=== PATIENT | male | born 1950 | race Two or more races ===

== ENCOUNTER 2018-05-30 09:38 | Emergency (ER) | payer OTHER ==
[~2018-05-30] VITALS: Ht 182.9 cm; Wt 108.9 kg
[2018-05-30] MEDS ORDERED: ONDANSETRON HCL 4 MG/2 ML VIAL IV ONE (10:30)
[2018-05-30] MEDS ORDERED: HYDROmorphone HCL 2 MG/ML VL IV ONE ×2 (10:30→12:30)
[2018-05-30 10:44] LABS: Basophils # (auto) 0 uL; Basophils % (auto) 0.2 % (0.0-2.0); Eosinophils # (auto) 0.1 uL; Eosinophils % (auto) 0.6 % (0.0-7.0); Hematocrit 44.3 % (41.0-53.0); Hemoglobin 15.1 g/dL (13.5-17.5); Lymphocytes # (auto) 2.2 uL; Lymphocytes % (auto) 11.7 % (10.0-50.0); Mean Corpuscular Hemoglobin 30.7 pg (28.0-32.0); Mean Corpuscular Hgb Conc. 34.1 g/dL (32.0-36.0); Mean Corpuscular Volume 90.1 fL (80.0-100.0); Monocytes % (auto) 5.1 % (0.0-12.0); Neutrophils # (auto) 15.4 uL; Neutrophils % (auto) 82.4 % (37.0-80.0); Platelet Count (auto) 256 10^3/uL (140-450); Red Blood Cells 4.92 10^6/uL (4.5-5.90); Red Cell Distribution Width 13.1 % (11.8-14.3); White Blood Cell 18.7 10^3/uL (4.4-10.8)
[2018-05-30 10:56] LABS: INR 0.97 (0.9-1.15); Partial Thromboplastin Time 23.7 sec (23.78-33.04); Prothrombin Time 10.4 sec (9.27-12.13)
[2018-05-30 11:04] LABS: Albumin 3.6 g/dL (3.4-5.0); Anion Gap 10 (5-15); Blood Urea Nitrogen 20 mg/dL (7-18); Calcium 8.4 mg/dL (8.5-10.1); Carbon Dioxide 22 mmol/L (21-32); Chloride 108 mmol/L (98-107); Glucose 138 mg/dL (74-106); Potassium 3.6 mmol/L (3.5-5.1); Sodium 140 mmol/L (136-145)
[2018-05-30 11:06] LABS: Alanine Aminotransferase 24 U/L (16-61); Aspartate Aminotransferase 13 U/L (15-37); GFR African American 112 mL/min; GFR Non-African American 92 mL/min
[2018-05-30 11:11] LABS: Alkaline Phosphatase 73 U/L (45-117); Bilirubin, Total 0.6 mg/dL (0.2-1.0); Total Protein 6.8 g/dL (6.4-8.2)
[2018-05-30 13:29] VITALS: BP 133/75
[2018-05-30 13:39] LABS: BUN/Creatinine Ratio 22.7
== END 2018-05-30 13:56 | disposition short-term general hospital (02) ==
LOC: ER 09:38
DX: S72.141A Displaced intertrochanteric fracture of right femur, initial encounter for closed fracture (principal); E11.9 Type 2 diabetes mellitus without complications; E78.5 Hyperlipidemia, unspecified; I10 Essential (primary) hypertension; V19.9XXA Pedal cyclist (driver) (passenger) injured in unspecified traffic accident, initial encounter; Y93.I9 Activity, other involving external motion; Y92.59 Other trade areas as the place of occurrence of the external cause; Y99.8 Other external cause status
CPT/HCPCS: 36415; 71045; 72192; 80053; 84484; 85025; 85610; 85730; 93005; 96374; 96375; 96376; 99285; J1170; J2405

== ENCOUNTER 2018-06-09 10:54 | Emergency (ER) | payer OTHER ==
[~2018-06-09] VITALS: Ht 182.9 cm; Wt 113.4 kg
[2018-06-09 11:26] LABS: Basophils # (auto) 0.1 uL; Eosinophils # (auto) 0 uL; Eosinophils % (auto) 0.1 % (0.0-7.0); Hemoglobin 12.6 g/dL (13.5-17.5)
[2018-06-09] MEDS ORDERED: DILTIAZEM HCL 25 MG/5 ML VIAL IV ONE ×2 (11:26→11:30)
[2018-06-09 11:27] LABS: Basophils % (auto) 0.6 % (0.0-2.0); Hematocrit 37.3 % (41.0-53.0); Lymphocytes # (auto) 1.7 uL; Lymphocytes % (auto) 11.3 % (10.0-50.0); Mean Corpuscular Hemoglobin 30.6 pg (28.0-32.0); Mean Corpuscular Hgb Conc. 33.7 g/dL (32.0-36.0); Mean Corpuscular Volume 90.8 fL (80.0-100.0); Monocytes # (auto) 0.7 uL; Monocytes % (auto) 4.4 % (0.0-12.0); Neutrophils % (auto) 83.6 % (37.0-80.0); Platelet Count (auto) 491 10^3/uL (140-450); Red Blood Cells 4.11 10^6/uL (4.5-5.90); Red Cell Distribution Width 13.9 % (11.8-14.3); White Blood Cell 15.5 10^3/uL (4.4-10.8)
[2018-06-09] MEDS ORDERED: SODIUM CHLORIDE 0.9% 1,000 ML IV ONE (11:44)
[2018-06-09 11:45] LABS: Albumin 3.3 g/dL (3.4-5.0); BUN/Creatinine Ratio 23.6; Calcium 8.6 mg/dL (8.5-10.1); Potassium 3.7 mmol/L (3.5-5.1)
[2018-06-09 11:49] LABS: Bilirubin, Total 1.1 mg/dL (0.2-1.0); Total Protein 7.6 g/dL (6.4-8.2)
[2018-06-09] MEDS ORDERED: MORPHINE SULFATE 4 MG/ML SYR/VIAL IV ONE ×2 (12:45→14:30)
[2018-06-09] MEDS ORDERED: PROMETHAZINE HCL 25 MG/ML 1ML IV ONE ×2 (12:45→14:30)
[2018-06-09] MEDS ORDERED: IOHEXOL 350 MG/ML 100ML IJ ONE (12:51)
[2018-06-09 13:22] LABS: Urine Bacteria NONE SEEN /hpf (None Seen); Urine Blood Negative /uL (Negative); Urine Specific Gravity 1.012 (1.001-1.035); Urine WBC <1 /hpf (0 - 3)
[2018-06-09 16:16] VITALS: BP 140/78
== END 2018-06-09 16:35 | disposition short-term general hospital (02) ==
LOC: ER 10:54
DX: R09.89 Other specified symptoms and signs involving the circulatory and respiratory systems (principal); I48.91 Unspecified atrial fibrillation; R79.89 Other specified abnormal findings of blood chemistry; R74.8 Abnormal levels of other serum enzymes; E11.65 Type 2 diabetes mellitus with hyperglycemia; E78.5 Hyperlipidemia, unspecified; I10 Essential (primary) hypertension; Z90.49 Acquired absence of other specified parts of digestive tract
CPT/HCPCS: 36415; 71046; 71275; 80053; 81001; 82962; 83735; 83880; 84443; 84484; 85025; 85379; 93005; 94761; 96361; 96374; 96375; 96376; 99285; J2270; J2550; J7030; Q9967

== ENCOUNTER 2019-09-28 19:48 | Inpatient (IN) | payer OTHER ==
[~2019-09-28] VITALS: Ht 182.9 cm; Wt 111.0 kg
[2019-09-28 20:46] LABS: Basophils # (auto) 0.1 10 ^3/uL (0-0.2); Basophils % (auto) 0.5 % (0.0-2.0); Eosinophils # (auto) 0 10 ^3/uL (0-0.8); Eosinophils % (auto) 0.5 % (0.0-7.0); Hematocrit 40.3 % (41.0-53.0); Hemoglobin 13.6 g/dL (13.5-17.5); Lymphocytes # (auto) 2.6 10 ^3/uL (0.4-5.4); Lymphocytes % (auto) 25.3 % (10.0-50.0); Mean Corpuscular Hemoglobin 28.6 pg (28.0-32.0); Mean Corpuscular Hgb Conc. 33.8 g/dL (32.0-36.0); Mean Corpuscular Volume 84.6 fL (80.0-100.0); Monocytes # (auto) 0.8 10 ^3/uL (0-1.3); Monocytes % (auto) 7.4 % (0.0-12.0); Neutrophils # (auto) 6.8 10 ^3/uL (1.6-8.6); Neutrophils % (auto) 66.3 % (37.0-80.0); Platelet Count (auto) 330 10^3/uL (140-450); Red Blood Cells 4.76 10^6/uL (4.5-5.90); White Blood Cell 10.3 10^3/uL (4.4-10.8)
[2019-09-28 21:03] LABS: Potassium 3.6 mmol/L (3.5-5.1)
[2019-09-28 21:12] LABS: Albumin 3.3 g/dL (3.4-5.0); BUN/Creatinine Ratio 25.3; Bilirubin, Total 0.9 mg/dL (0.2-1.0); Calcium 8.4 mg/dL (8.5-10.1); Total Protein 6.8 g/dL (6.4-8.2)
[2019-09-28] MEDS ORDERED: dilTIAZem 25 MG/5 ML VIAL IV ONE ×2 (21:45→23:00)
[2019-09-28] MEDS ORDERED: ALBUTEROL SULF 2.5 MG/0.5ML(0.5%) NEB SOLN NEB ONE (21:45)
[2019-09-28] MEDS ORDERED: IPRATROPIUM BROM 0.5 MG/2.5ML INH SOL NEB ONE (21:45)
[2019-09-28] MEDS ORDERED: DexAMETHasone INJECTION 10 MG in D5W 5% 50 ML IV ONE (21:45)
[2019-09-28] MEDS ORDERED: DexAMETHasone SOD PHOS 4 MG/1ML SDV INJ ONE (22:31)
[2019-09-28 22:35] LABS: INR 1.19 (0.9-1.15); Partial Thromboplastin Time 26.8 sec (23.64-32.05)
[2019-09-29] MEDS ORDERED: DOCUSATE SOD 100 MG CAP PO PRN (00:30)
[2019-09-29] MEDS ORDERED: ACETAMINOPHEN 325 MG TAB PO PRN (00:30)
[2019-09-29] MEDS ORDERED: ONDANSETRON HCL 4 MG/2 ML VIAL IV PRN (00:30)
[2019-09-29] MEDS ORDERED: DEXTROSE (50%) 50ML SYRG IV PRN (00:30)
[2019-09-29] MEDS ORDERED: HYDROcodone-ACET 5/325MG TAB PO PRN (00:30)
[2019-09-29 01:38] LABS: Urine Bacteria NONE SEEN /hpf (None Seen); Urine Blood Negative /uL (Negative); Urine Hyaline Cast FEW /lpf (0 - 2); Urine Specific Gravity 1.025 (1.001-1.035); Urine WBC 1 /hpf (0 - 3)
[2019-09-29] MEDS ORDERED: AMIODARONE HCL 150 MG in D5W 5% 100 ML IV ONE (02:00)
[2019-09-29] MEDS ORDERED: AMIODARONE HCL (50 MG/ ML) 3 ML VIAL IV ONE (02:00)
[2019-09-29] MEDS ORDERED: AMIODARONE HCL 900 MG in DEXTROSE 500 ML IV SCH ×2 (02:07→08:07)
[2019-09-29] MEDS ORDERED: AMIODARONE HCL 900 MG IV ONE (02:08)
--- NOTE | 2019-09-29 02:57 | NUR ---
Telemetry admit from ER Patient admitted to Telemetry unit after SBAR received. Patient oriented to primary RN, unit, room, bed, and unit policies regarding patient care and visiting hours. Patient now on continuous telemetry monitoring, tele box # 79 and telemetry reading on arrival to unit is Afib with HR 135. Patient on Amiodarone drip 1mg/min. Patient placed on bedside oxygen at 2 L NC, weighed by bed scale and encouraged to call if they need something. All questions and concerns addressed, patient verbalized understanding. Bed is in lowest position, Bed rails 2x, bed wheels locked. Call light and bedside table within reach.
[2019-09-29 03:27] VITALS: BP 166/115
--- NOTE | 2019-09-29 03:30 | NUR ---
Called hospitalist Patient has elevated blood pressure 153/73 HR 129. One time order for clonidine 0.1mg. Will continue to monitor Q1 and PRN.
--- NOTE | 2019-09-29 03:32 | NUR ---
RT Paged Patient reports having SOB. Patient has heavy breathing and slight hyperventilation. RT administered PRN breathing treatments for SOB. Will continue to monitor patient Q1 and PRN. Call light and bedside table are within reach.
[2019-09-29 03:37] VITALS: BP 153/107
[2019-09-29] MEDS: ALBUTEROL SULF 2.5 MG/0.5ML(0.5%) NEB SOLN NEB PRN ×2 (03:40→07:12)
[2019-09-29] MEDS: IPRATROPIUM BROM 0.5 MG/2.5ML INH SOL NEB PRN ×2 (03:40→07:12)
[2019-09-29] MEDS ORDERED: cloNIDine HCL 0.1 MG TAB PO ONE (04:00)
[2019-09-29] MEDS ORDERED: FLUT250M2 INH (04:25)
[2019-09-29] MEDS ORDERED: APIX5TAB PO (04:25)
[2019-09-29] MEDS ORDERED: ATO40T PO (04:25)
[2019-09-29] MEDS ORDERED: LISI40TA PO (04:25)
[2019-09-29] MEDS ORDERED: FURO1TAB31 PO (04:25)
[2019-09-29] MEDS ORDERED: ALBU2TAB4 PO (04:25)
[2019-09-29] MEDS ORDERED: TERA1CAP33 PO (04:25)
[2019-09-29] MEDS ORDERED: METF-370 PO (04:25)
[2019-09-29] MEDS ORDERED: SPIR25TA8 PO (04:25)
[2019-09-29] MEDS ORDERED: MONT5CHW17 PO (04:25)
[2019-09-29] MEDS ORDERED: ALBUAER3 IN (04:25)
[2019-09-29] MEDS ORDERED: CARV3.1240 PO (04:25)
[2019-09-29] MEDS: ACCU-CHEK COMFORT CURVE STRIP VI SCH ×4 (04:26→17:28)
[2019-09-29] MEDS: InsuLIN REG 1unit/0.01ml Soln (100units/ml) SC SCH ×4 (04:31→17:34)
[2019-09-29 05:00] VITALS: BP 140/100
--- NOTE | 2019-09-29 05:31 | NUR ---
RT PAGED Patient complains of SOB. Patient SPO2 97%, breathing moderately labored. Patient is on 3L NC. Instructed to take deep breaths. RT paged to assess patient. Will continue to monitor patient Q1 and PRN.
[2019-09-29 06:01] LABS: Basophils # (auto) 0 10 ^3/uL (0-0.2); Basophils % (auto) 0.5 % (0.0-2.0); Eosinophils # (auto) 0 10 ^3/uL (0-0.8); Hematocrit 40.7 % (41.0-53.0); Hemoglobin 13.7 g/dL (13.5-17.5); Lymphocytes # (auto) 0.9 10 ^3/uL (0.4-5.4); Lymphocytes % (auto) 12.5 % (10.0-50.0); Mean Corpuscular Hemoglobin 28.1 pg (28.0-32.0); Mean Corpuscular Hgb Conc. 33.6 g/dL (32.0-36.0); Mean Corpuscular Volume 83.8 fL (80.0-100.0); Monocytes # (auto) 0.2 10 ^3/uL (0-1.3); Monocytes % (auto) 3.1 % (0.0-12.0); Neutrophils # (auto) 6.3 10 ^3/uL (1.6-8.6); Neutrophils % (auto) 83.9 % (37.0-80.0); Platelet Count (auto) 320 10^3/uL (140-450); Red Blood Cells 4.86 10^6/uL (4.5-5.90); Red Cell Distribution Width 15.4 % (11.8-14.3); White Blood Cell 7.6 10^3/uL (4.4-10.8)
[2019-09-29 06:30] LABS: BUN/Creatinine Ratio 25.3; Calcium 8.5 mg/dL (8.5-10.1); Potassium 3.8 mmol/L (3.5-5.1)
--- NOTE | 2019-09-29 06:34 | NUR ---
RT PAGED Patient complains of SOB. RT paged to assess patient. Patient on 3L NC. Will continue to monitor Q1 and PRN.
--- NOTE | 2019-09-29 06:39 | NUR ---
Called Hospitalist Patient complains of right side arm pain that radiates mid chest. EKG done shows Afib with short RVR. VS BP 145/84 HR 129 SPO2 96% T 97.6%. No new orders received. Instructed to give Morphine 2mg as ordered. Will monitor patient Q1 and PRN.
[2019-09-29] MEDS: MORPHINE SULFATE 4 MG/ML SYR/VIAL IV PRN ×2 (06:58→12:42)
--- NOTE | 2019-09-29 07:54 | NUR ---
OPENING SHIFT NOTE Assumed care of patient. PT is awake and A&O x4. POC discussed with PT. Family member at bedside. Bed is in lowest, locked position, call light within reach, bed alarm on for safety. Will continue to monitor Q1h and PRN.
[2019-09-29] MEDS ORDERED: ADENOSINE 93 MG in GIVE UN-DILUTED 0 ML IV STA (08:59)
[2019-09-29 09:10] VITALS: BP 160/91
[2019-09-29] MEDS ORDERED: DexAMETHasone INJECTION 10 MG in D5W 5% 50 ML IV SCH (10:00)
[2019-09-29] MEDS ORDERED: FUROSEMIDE 40 MG TAB PO SCH (10:00)
[2019-09-29] MEDS ORDERED: APIXABAN 5 MG TAB PO SCH (10:00)
[2019-09-29] MEDS ORDERED: LISINOPRIL 20 MG TAB PO SCH (10:00)
[2019-09-29] MEDS ORDERED: CARVEDILOL 3.125 MG TAB PO SCH (10:00)
[2019-09-29] MEDS ORDERED: methylPREDNISolone SOD SUCC 125 MG/2 ML VL IV SCH (10:00)
[2019-09-29] MEDS ORDERED: SPIRONOLACTONE 25 MG TAB PO SCH (10:00)
[2019-09-29] MEDS ORDERED: TERAZOSIN HCL 1 MG CAP PO SCH (10:00)
[2019-09-29] MEDS: AMIODARONE HCL 150 MG in D5W 5% 100 ML IV ONE ×2 (10:22→10:30)
[2019-09-29] MEDS ORDERED: cloNIDine HCL 0.1 MG TAB PO PRN (11:30)
--- NOTE | 2019-09-29 12:35 | NUR ---
1230 09/29/19 Faxed transfer order, today's MD progress notes and Notice Regarding Post Stabilization to [place] [facility] [phone]-document scanned into [employer].
--- NOTE | 2019-09-29 14:34 | NUR ---
1430 09/29/19 I spoke with AUBURN Jet Operator Shaun ([phone])-he is working on the transfer for this patient-he will call nurse's station when a bed becomes available. Provided him with additional clinical information as requested. Faxed today's MD discharge summary as well as ECHO from 07/2019.
[2019-09-29 15:17] VITALS: BP 118/69
--- NOTE | 2019-09-29 16:31 | NUR ---
SPOKE WITH ROGERS DATABASES SOFTWARE CONSULTANT. STATED PT WOULD BE TRANSFERRING TO [facility]. EVY ROOM [address] HARDING. PICKUP TIME SET FOR 1999. WILL PROCEED WITH TRANSFER AND ENDORSE TO NIGHT NURSE.
[2019-09-29 17:00] VITALS: BP 142/98
[2019-09-29] MEDS ORDERED: ATORVASTATIN 20 MG TAB PO SCH (18:00)
--- NOTE | 2019-09-29 19:30 | NUR ---
Opening Shift Note Received report from Will RN. Assumed care of patient, awake and alert. No S/S of distress/SOB or pain. Instructed on POC and to calf for assist PRN, will continue to monitor for changes Q1hr and PRN. Patient is for transfer to [facility], awaiting transport.
--- NOTE | 2019-09-29 19:39 | NUR ---
CALLED IN REPORT TO JOHN OAKES AT [facility]. PT IS AWAITING TRANSPORT.
--- NOTE | 2019-09-29 21:00 | NUR ---
Pt being trans to another hosp Order obtained for transfer of PERLA MCGEE to [facility]. Report called/given by jaja BARNHART. Report given to EMS transport team. Medication reconciliation form completed and copy given to patient. Transported via gurney along with copied chart and imaging films/disk and all personal belongings. No distress noted on time of departure. Family notified of destination and room number by jaja BARNHART.
== END 2019-09-29 21:00 | disposition short-term general hospital (02) | DRG 280 ==
LOC: ER 19:50 → TELE 19:51 → TELE-WESTW 09-29 02:58
PROVIDERS: ADMIT Hospitalist; ATTEND Internal Medicine
DX: I21.4 Non-ST elevation (NSTEMI) myocardial infarction (principal); J96.21 Acute and chronic respiratory failure with hypoxia; I50.33 Acute on chronic diastolic (congestive) heart failure; N17.0 Acute kidney failure with tubular necrosis; J44.1 Chronic obstructive pulmonary disease with (acute) exacerbation; J45.901 Unspecified asthma with (acute) exacerbation; I13.0 Hypertensive heart and chronic kidney disease with heart failure and stage 1 through stage 4 chronic kidney disease, or unspecified chronic kidney disease; I48.92 Unspecified atrial flutter; D68.69 Other thrombophilia; I48.0 Paroxysmal atrial fibrillation; E66.9 Obesity, unspecified; N40.0 Benign prostatic hyperplasia without lower urinary tract symptoms; I25.10 Atherosclerotic heart disease of native coronary artery without angina pectoris; Z95.5 Presence of coronary angioplasty implant and graft; E11.22 Type 2 diabetes mellitus with diabetic chronic kidney disease; N18.9 Chronic kidney disease, unspecified; Z91.14 Patient's other noncompliance with medication regimen; Z68.33 Body mass index [BMI] 33.0-33.9, adult; E78.5 Hyperlipidemia, unspecified; I25.2 Old myocardial infarction; Z79.01 Long term (current) use of anticoagulants; Z80.0 Family history of malignant neoplasm of digestive organs; Z82.49 Family history of ischemic heart disease and other diseases of the circulatory system; Z83.3 Family history of diabetes mellitus; Z86.711 Personal history of pulmonary embolism; Z86.718 Personal history of other venous thrombosis and embolism; Z90.49 Acquired absence of other specified parts of digestive tract
CPT/HCPCS: 36415; 36600; 71045; 80048; 80053; 81001; 82805; 82962; 83036; 83735; 83880; 84443; 84484; 85025; 85379; 85610; 85730; 93005; 94640; 96365; 96367; 96372; 96375; 97163; 99291; G0378; J0153; J1100; J1815; J7060

== ENCOUNTER 2019-10-27 20:24 | Inpatient (IN) | payer OTHER ==
[~2019-10-27] VITALS: Ht 182.9 cm; Wt 109.0 kg
[~2019-10-27 20:24] MED LIST: ALBU2TAB4 PO; ALBUAER3 IN; APIX5TAB PO; ATO40T PO; CARV3.1240 PO; FLUT250M2 INH; FURO1TAB31 PO; LISI40TA PO; METF-370 PO; MONT5CHW17 PO; SPIR25TA8 PO; TERA1CAP33 PO
[2019-10-27] MEDS ORDERED: FUROSEMIDE 20 MG/2 ML VIAL IV ONE (21:00)
[2019-10-27] MEDS ORDERED: DIGOXIN 0.25 MG TAB PO ONE (21:00)
[2019-10-27 21:13] LABS: Urine WBC None Seen /hpf (0 - 3)
[2019-10-27] MEDS ORDERED: DIGOXIN (250MCG/ML) 2 ML AMPULE IV ONE (21:15)
[2019-10-27 21:30] LABS: Basophils # (auto) 0.1 10 ^3/uL (0-0.2); Basophils % (auto) 0.6 % (0.0-2.0); Eosinophils # (auto) 0.2 10 ^3/uL (0-0.8); Lymphocytes # (auto) 2.3 10 ^3/uL (0.4-5.4); Monocytes # (auto) 0.9 10 ^3/uL (0-1.3); Red Cell Distribution Width 17.1 % (11.8-14.3)
[2019-10-27 21:34] LABS: Eosinophils % (auto) 1.7 % (0.0-7.0); Hematocrit 41.3 % (41.0-53.0); Lymphocytes % (auto) 20.3 % (10.0-50.0); Mean Corpuscular Hemoglobin 25.9 pg (28.0-32.0); Mean Corpuscular Hgb Conc. 31.5 g/dL (32.0-36.0); Mean Corpuscular Volume 82.3 fL (80.0-100.0); Monocytes % (auto) 7.8 % (0.0-12.0); Neutrophils # (auto) 7.9 10 ^3/uL (1.6-8.6); Neutrophils % (auto) 69.6 % (37.0-80.0); Platelet Count (auto) 432 10^3/uL (140-450); Red Blood Cells 5.01 10^6/uL (4.5-5.90); White Blood Cell 11.3 10^3/uL (4.4-10.8)
[2019-10-27 21:44] LABS: Urine Bacteria NONE SEEN /hpf (None Seen); Urine Blood Negative /uL (Negative); Urine Specific Gravity 1.015 (1.001-1.035)
[2019-10-27 21:48] LABS: INR 1.13 (0.9-1.15); Partial Thromboplastin Time 24.8 sec (23.64-32.05)
[2019-10-27 21:50] LABS: Albumin 3.3 g/dL (3.4-5.0); BUN/Creatinine Ratio 24.8; Calcium 8.5 mg/dL (8.5-10.1); Potassium 3.9 mmol/L (3.5-5.1)
[2019-10-27 21:55] LABS: Bilirubin, Total 0.7 mg/dL (0.2-1.0); Total Protein 6.8 g/dL (6.4-8.2)
[2019-10-27] MEDS ORDERED: cloNIDine HCL 0.1 MG TAB PO ONE (22:00)
[2019-10-27] MEDS ORDERED: cefTRIAXone 1GM/50ML D5W 50 ML IV ONE (23:00)
[2019-10-28] VITALS (29 sets, daily range): BP systolic 85–118; BP diastolic 50–75
[2019-10-28] MEDS ORDERED: AZITHROMYCIN 500MG/ 250ML 250 ML IV ONE (01:15)
[2019-10-28] MEDS ORDERED: methylPREDNISolone SOD SUCC 125 MG/2 ML VL IV ONE (01:15)
[2019-10-28] MEDS ORDERED: cloNIDine HCL 0.1 MG TAB PO ONE (01:15)
[2019-10-28] MEDS ORDERED: FUROSEMIDE 20 MG/2 ML VIAL IV ONE (01:45)
[2019-10-28] MEDS: MIDAZOLAM DRIP 50 mg/50mL 50 ML IV SCH (02:45)
[2019-10-28] MEDS ORDERED: ETOMIDATE (2MG/ML) 20ML VIAL IV ONE ×2 (02:45→03:30)
[2019-10-28] MEDS ORDERED: SUCCINYLCHOLINE CHLORIDE 20 MG/ML 10ML VIAL IV ONE ×2 (02:45→03:30)
[2019-10-28] MEDS: PROPOFOL 100 ML IV SCH (03:29)
[2019-10-28] MEDS ORDERED: ALBUTEROL SULF 2.5 MG/0.5ML(0.5%) NEB SOLN NEB PRN (03:30)
[2019-10-28] MEDS ORDERED: DEXTROSE (50%) 50ML SYRG IV PRN (03:30)
[2019-10-28] MEDS ORDERED: ONDANSETRON HCL 4 MG/2 ML VIAL IV PRN (03:30)
[2019-10-28] MEDS ORDERED: NITROGLYCERIN 0.4 MG SL TAB SL PRN (03:30)
[2019-10-28] MEDS ORDERED: MORPHINE SULF INJ 2 MG/ML SYRINGE 1ML IV PRN (03:30)
[2019-10-28] MEDS ORDERED: cefTRIAXone 1GM/50ML D5W 50 ML IV ONE (03:30)
[2019-10-28] MEDS ORDERED: IPRATROPIUM BROM 0.5 MG/2.5ML INH SOL NEB PRN (03:30)
[2019-10-28] MEDS: ACCU-CHEK COMFORT CURVE STRIP VI SCH ×3 (06:18→19:00)
[2019-10-28] MEDS: InsuLIN REG 1unit/0.01ml Soln (100units/ml) SC SCH ×3 (06:19→18:58)
[2019-10-28] MEDS: ASCORBIC ACID 500 MG TAB PO SCH (09:01)
[2019-10-28] MEDS: APIXABAN 5 MG TAB PO SCH ×2 (09:01→22:00)
[2019-10-28] MEDS: ZINC SULFATE 220mg CAP or TAB PO SCH (09:02)
[2019-10-28] MEDS: PANTOPRAZOLE 40 MG/10 ML VIAL INJ IV SCH (09:03)
[2019-10-28] MEDS ORDERED: ASPirin 81 mg TAB PO SCH (10:00)
[2019-10-28] MEDS ORDERED: FUROSEMIDE 40 MG/4 ML VIAL IV ONE (11:15)
[2019-10-28] MEDS ORDERED: CARVEDILOL 3.125 MG TAB PO ONE (11:15)
--- NOTE | 2019-10-28 18:25 | NUR ---
RT Transport Note: Patient transported to {104} with RN {FRANCES}. Patient transported to and from procedure on ventilator with previous ordered settings. Patient on color television console monitor with alarms set and audible, ambu-bag/mask connected to 02 tank. Transport completed without incident. Pt set up back on regular vent, Dr Lawson in unit with verbal order to increase peep to +10. Pt is resting with no distress will continue to monitor.
--- NOTE | 2019-10-28 18:30 | NUR ---
Admit to ICU from ER on vent ARELY,PERLAadmitted to ICU via gurnusrat on monitoring tech, intubated and being bagged by Respiratory Therapist. Patient transfered to bed, connected to mechanical ventilator by therapist, JOSE at bedside. Patient connected to ICU monitoring, weighed by bedscale, oriented to Rafal booker RN, unit, ventilator and sedation.
[2019-10-28] MEDS: FUROSEMIDE 40 MG/4 ML VIAL IV SCH (18:45)
--- NOTE | 2019-10-28 19:30 | NUR ---
Opening Shift Note Received pt on mechanical ventilator, sedated on propofol and versed. Pt withdraws to pain. VSS. Full assessment done see interventions. [address] See IV spreadsheet for details. Jaquez catheter in place, draining yellow urine with sediment, secured below bladder, free of kinks. Airborne precautions in place, as pt being ruled out for COVID-19. Pt in full view of RN. Bed locked in lowest position. All alarms on and audible.
--- NOTE | 2019-10-28 19:30 | NUR ---
REPORT GIVEN TO NITHIN BARNHART, ENDORSED TO COMPLETE ADMISSION.
--- NOTE | 2019-10-28 20:30 | NUR ---
Called pt's brother, Cholo, to finish admission questions. Cholo updated on pt status, and all questions and concerns addressed at this time.
[2019-10-28] MEDS: AZITHROMYCIN 500MG/ 250ML 250 ML IV SCH (21:00)
[2019-10-28] MEDS: cefTRIAXone 1GM/50ML D5W 50 ML IV SCH (21:00)
[2019-10-28] MEDS: ATORVASTATIN 20 MG TAB PO SCH (22:00)
[2019-10-28] MEDS: CARVEDILOL 3.125 MG TAB PO SCH (22:00)
[2019-10-29] VITALS (94 sets, daily range): BP systolic 92–137; BP diastolic 48–88
--- NOTE | 2019-10-29 02:00 | NUR ---
18 G IV ACCESS OBTAINED TO LEFT UPPER FA. PATENT AND SECURED PROPERLY. PT TOLERATED WELL.
[2019-10-29] MEDS: MIDAZOLAM DRIP 50 mg/50mL 50 ML IV SCH (02:45)
--- NOTE | 2019-10-29 03:00 | NUR ---
CARES PT CLEANSED AND PARTIAL LINEN CHANGE AT THIS TIME. SACRUM REDDENED, AND BLANCHABLE. FREQUENT REPOSITIONING INTERVENTION BEING CARRIED OUT. WILL CONTINUE TO MONITOR CLOSELY.
[2019-10-29] MEDS: PROPOFOL 100 ML IV SCH (03:29)
[2019-10-29 04:24] LABS: Basophils # (auto) 0 10 ^3/uL (0-0.2); Basophils % (auto) 0.1 % (0.0-2.0); Eosinophils # (auto) 0 10 ^3/uL (0-0.8); Hematocrit 36.7 % (41.0-53.0); Hemoglobin 11.8 g/dL (13.5-17.5); Lymphocytes # (auto) 1.3 10 ^3/uL (0.4-5.4); Lymphocytes % (auto) 12.2 % (10.0-50.0); Mean Corpuscular Hemoglobin 26.6 pg (28.0-32.0); Mean Corpuscular Hgb Conc. 32.3 g/dL (32.0-36.0); Mean Corpuscular Volume 82.2 fL (80.0-100.0); Monocytes # (auto) 0.9 10 ^3/uL (0-1.3); Monocytes % (auto) 8.9 % (0.0-12.0); Neutrophils # (auto) 8.4 10 ^3/uL (1.6-8.6); Neutrophils % (auto) 78.8 % (37.0-80.0); Platelet Count (auto) 330 10^3/uL (140-450); Red Blood Cells 4.46 10^6/uL (4.5-5.90); Red Cell Distribution Width 16.6 % (11.8-14.3); White Blood Cell 10.7 10^3/uL (4.4-10.8)
[2019-10-29 04:45] LABS: Albumin 2.7 g/dL (3.4-5.0); Calcium 8.1 mg/dL (8.5-10.1)
[2019-10-29 04:49] LABS: Bilirubin, Total 0.6 mg/dL (0.2-1.0); Total Protein 5.7 g/dL (6.4-8.2)
[2019-10-29] MEDS: ACCU-CHEK COMFORT CURVE STRIP VI SCH ×4 (06:19→18:00)
[2019-10-29] MEDS: InsuLIN REG 1unit/0.01ml Soln (100units/ml) SC SCH ×4 (06:19→18:00)
[2019-10-29] MEDS: FUROSEMIDE 40 MG/4 ML VIAL IV SCH ×2 (06:20→19:04)
[2019-10-29] MEDS: ASPirin 81 mg TAB PO SCH (07:59)
[2019-10-29] MEDS: APIXABAN 5 MG TAB PO SCH ×2 (07:59→21:54)
[2019-10-29] MEDS: PANTOPRAZOLE 40 MG/10 ML VIAL INJ IV SCH (07:59)
[2019-10-29] MEDS: ASCORBIC ACID 500 MG TAB PO SCH (07:59)
[2019-10-29] MEDS: ZINC SULFATE 220mg CAP or TAB PO SCH ×2 (08:00→13:57)
--- NOTE | 2019-10-29 09:27 | NUR ---
ZINC TABLET UNAVAILABLE NO ZINC PO AVAILABLE PER PHARMACY AT THIS TIME. MEDICATION HELD. MD TO BE NOTIFIED.
[2019-10-29] MEDS: CARVEDILOL 3.125 MG TAB PO SCH ×2 (10:00→21:54)
--- NOTE | 2019-10-29 10:30 | NUR ---
md at bedside Dr. Hernandes updated on patients status. Per md, no picc line at this time, roofer assistant to insert central line. Pourer Buggy Ladle aware. See new orders.
--- NOTE | 2019-10-29 10:47 | NUR ---
Family updated on pt status Family of PERLA MCGEE updated on patient's status and condition. All questions and concerns addressed. Cholo, brother verbalized understanding.
--- NOTE | 2019-10-29 12:26 | NUR ---
Nutrition Assessment Notes Please refer to link for full assessment notes. Est energy needs: 0829-8839 kcals (14-18 kcal/kgBW) Est protein needs: 90-99 gms/day (1.0-1.1 gm/kgAdjBW) Will continue to monitor and reassess prn. Addendum: 10/29/19 at [address] Amended: Links added.
--- NOTE | 2019-10-29 14:00 | NUR ---
PHARMACY ABLE TO SEND ZINC CAPSULE. MEDICATION ADMINISTERED.
--- NOTE | 2019-10-29 14:20 | NUR ---
Cooling Measures applied. Patient currently has temp of 99.8 , cooling measures in place.
--- NOTE | 2019-10-29 16:56 | NUR ---
WOUND CARE NOTE: Wound care in to see patient per wound care request regarding low Luis score of 12 and intubation status putting patient to high risk for skin breakdown. Patient is 68 years old male with admitting diagnosis of Acute Hypoxic Respiratory Failure. Patient is resting in ICU bed in Rm. 104. Patient is intubated and mechanically ventilated. Unable to do full skin assessment at this time due to patient is on airborne precautions, R/O CoVid19, limiting exposure by clustering care. Per patient's nurse report,patient has no wound other than Lt antunez dry intact scab and blanchable mild redness to sacrum. Patient is receiving BID/PRN cleaning and application of Barrier cream to sacral buttocks as preventative. RECOMMENDATION: Nursing to continue with BID/PRN cleaning and application of Barrier cream to sacral buttocks as preventative per MD order, Dietary consult for low Luis score, frequent turning and repositioning schedule as condition permits, redistribute pressure points with pillows,elevate heels on pillow, continue monitoring by wound care while patient is mechanically ventilated.
[2019-10-29] MEDS ORDERED: Glucerna 1.2 Cal 1Liter BOTTLE GT SCH (17:00)
--- NOTE | 2019-10-29 17:22 | NUR ---
fashion designer Dr. Lawson updated on patients status. No new orders at this time. Per md, versed and propofol to remain in peripheral iv's at this time. HOLD on central line. All iv's remain asymptomatic. Will continue to monitor sites closely.
--- NOTE | 2019-10-29 17:45 | NUR ---
IV RIGHT HAND IV INFUSING VERSED. SLIGHT AMOUNT OF PINK AREA NOTED. IV FLUSHED AND PATENT. VERSED CHANGED TO RIGHT FOREARM. WILL CONTINUE TO MONITOR SITES.
--- NOTE | 2019-10-29 19:30 | NUR ---
Opening Shift Note Received pt on mechanical ventilator, sedated on propofol and versed. Pt withdraws to pain. VSS. Full assessment done see interventions. [address] See IV spreadsheet for details. All IV sites asymptomatic. Will monitor IV sites closely. Jaquez catheter in place, draining yellow urine with sediment, secured below bladder, free of kinks. Airborne precautions in place, as pt being ruled out for COVID-19. Pt in full view of RN. Bed locked in lowest position. All alarms on and audible.
[2019-10-29] MEDS: cefTRIAXone 1GM/50ML D5W 50 ML IV SCH (21:52)
[2019-10-29] MEDS: ATORVASTATIN 20 MG TAB PO SCH (21:52)
[2019-10-29] MEDS: AZITHROMYCIN 500MG/ 250ML 250 ML IV SCH (21:52)
--- NOTE | 2019-10-29 23:30 | NUR ---
TUBE FEEDING STARTED AT 10 CC/S Positive placement of NGT verified.
[2019-10-30] VITALS (98 sets, daily range): BP systolic 92–152; BP diastolic 57–99
[2019-10-30] MEDS: InsuLIN REG 1unit/0.01ml Soln (100units/ml) SC SCH ×4 (00:14→18:00)
[2019-10-30] MEDS: ACCU-CHEK COMFORT CURVE STRIP VI SCH ×4 (00:25→18:00)
--- NOTE | 2019-10-30 02:00 | NUR ---
TF No residuals noted will continue and increase to reach goal rate
[2019-10-30] MEDS: MIDAZOLAM DRIP 50 mg/50mL 50 ML IV SCH ×2 (03:01→08:01)
--- NOTE | 2019-10-30 04:51 | NUR ---
CARES PT CLEANSED AND PARTIAL LINEN CHANGE PERFORMED. OPTIFOAM PLACED TO SACRUM FOR PREVENTATIVE.
[2019-10-30 05:34] LABS: Basophils # (auto) 0 10 ^3/uL (0-0.2); Basophils % (auto) 0.5 % (0.0-2.0); Eosinophils # (auto) 0 10 ^3/uL (0-0.8); Eosinophils % (auto) 0.2 % (0.0-7.0); Hematocrit 37.6 % (41.0-53.0); Hemoglobin 11.9 g/dL (13.5-17.5); Lymphocytes # (auto) 2.5 10 ^3/uL (0.4-5.4); Lymphocytes % (auto) 24.6 % (10.0-50.0); Mean Corpuscular Hemoglobin 26.2 pg (28.0-32.0); Mean Corpuscular Hgb Conc. 31.8 g/dL (32.0-36.0); Mean Corpuscular Volume 82.6 fL (80.0-100.0); Monocytes # (auto) 1.2 10 ^3/uL (0-1.3); Monocytes % (auto) 11.5 % (0.0-12.0); Neutrophils # (auto) 6.4 10 ^3/uL (1.6-8.6); Neutrophils % (auto) 63.2 % (37.0-80.0); Platelet Count (auto) 317 10^3/uL (140-450); Red Blood Cells 4.55 10^6/uL (4.5-5.90); Red Cell Distribution Width 17.3 % (11.8-14.3); White Blood Cell 10.1 10^3/uL (4.4-10.8)
[2019-10-30] MEDS: FUROSEMIDE 40 MG/4 ML VIAL IV SCH ×2 (06:00→18:00)
[2019-10-30 06:02] LABS: Potassium 3.8 mmol/L (3.5-5.1)
[2019-10-30 06:11] LABS: Albumin 2.6 g/dL (3.4-5.0); BUN/Creatinine Ratio 26.3; Bilirubin, Total 0.6 mg/dL (0.2-1.0); Calcium 8.4 mg/dL (8.5-10.1); Total Protein 5.9 g/dL (6.4-8.2)
--- NOTE | 2019-10-30 06:50 | NUR ---
PATIENT NEGATIVE FOR COVID-19. AIRBORNE PRECAUTIONS USHA'Shabbir.
--- NOTE | 2019-10-30 07:16 | NUR ---
REPORT RECEIVED FROM TOLL BRIDGE OPERATOR NURSE. PATIENT RESTING IN BED AT THIS TIME. RESPIRATIONS EVEN AND UNLABORED, INTUBATED AND SEDATED. NO SIGNS OF ACUTE DISTRESS NOTED. BED IN LOW POSITION. WILL CONTINUE TO MONITOR.
--- NOTE | 2019-10-30 07:16 | NUR ---
REPORT GIVEN TO DAY SHIFT RN TO ASSUME CARE
[2019-10-30] MEDS: PROPOFOL 100 ML IV SCH ×2 (08:02→16:09)
[2019-10-30] MEDS: APIXABAN 5 MG TAB PO SCH ×2 (09:49→21:56)
[2019-10-30] MEDS: ASCORBIC ACID 500 MG TAB PO SCH (09:49)
[2019-10-30] MEDS: CARVEDILOL 3.125 MG TAB PO SCH (09:50)
[2019-10-30] MEDS: PANTOPRAZOLE 40 MG/10 ML VIAL INJ IV SCH (09:50)
[2019-10-30] MEDS: ASPirin 81 mg TAB PO SCH (09:50)
[2019-10-30] MEDS: ZINC SULFATE 220mg CAP or TAB PO SCH (09:51)
--- NOTE | 2019-10-30 11:00 | NUR ---
DR URIBE AT BEDSIDE TO ASSESS PATIENT AND DISCUSS PLAN OF CARE. NO NEW ORDERS AT THIS TIME.
--- NOTE | 2019-10-30 13:12 | NUR ---
DR BETH AT BEDSIDE TO ASSESS PATIENT AND DISCUSS PLAN OF CARE. PER MD PATIENT NEEDS RIGHT SIDED THORACENTESIS TOMORROW. PER MD HOLD ALL BLOOD THINNERS TODAY AND TOMORROW.
[2019-10-30] MEDS: hydrALAZINE HCL 20 MG/ML VL IV PRN (13:59)
--- NOTE | 2019-10-30 14:03 | NUR ---
assessment Patient is a 68 year old male who is on a vent. Per patients brother Cholo prior to admission patient lived home alone and was independent. Patient has no need for DME. Patient cared for his own ADL's. Patients PCP is Dr Naylor at the [facility]. Per Cholo if [place] ask for patient to be transferred in network he agrees to transfer. Paer Cholo patient was having shortness of breath and Cholo call 911. I informed Cholo patients post discharge needs to be determined after extubation and prior to discharge. Cholo verbalized understanding. Addendum: 10/30/19 at 1407 by Araceli RUBI Amended: Links added.
--- NOTE | 2019-10-30 14:19 | NUR ---
OBTAINED CONSENT SPOKE TO RENNY MCGEE PATIENTS BROTHER AND OBTAINED CONSENT FOR RIGHT THORACENTESIS. CONSENT DOUBLE NURSE CONSENTED WITH EVITA BARNHART.
--- NOTE | 2019-10-30 16:10 | NUR ---
HOWARD CRABTREE LAP REGULATOR AT BEDSIDE TO ASSESS PATIENT AND DISCUSS PLAN OF CARE. ALL ORDERS NOTED IN CHART.
--- NOTE | 2019-10-30 16:26 | NUR ---
1620 10/30/19 I called [facility] [phone] and spoke with operational intelligence analyst Celina bertrand the order to transfer this patient to [facility] they are still not accepting any EVY or ICU patients for transfer at any of their facilities because they are over saturated. Dr. Hernandes made aware.
[2019-10-30] MEDS ORDERED: CARVEDILOL 12.5 MG TAB PO SCH (18:00)
--- NOTE | 2019-10-30 19:30 | NUR ---
CLOSING NOTE SHIFT REPORT GIVEN AND CARE ENDORSED TO NITHIN BARNHART FROM KAHLIL BARNHART
--- NOTE | 2019-10-30 19:30 | NUR ---
Opening Shift Note Received pt on mechanical ventilator, sedated on propofol. Pt withdraws to pain. VSS. Full assessment done see interventions. [address] See IV spreadsheet for details. All IV sites asymptomatic. Will monitor IV sites closely. Jaquez catheter in place, draining yellow urine with sediment, secured below bladder, free of kinks. Pt in full view of RN. Bed locked in lowest position. All alarms on and audible.
[2019-10-30] MEDS: cefTRIAXone 1GM/50ML D5W 50 ML IV SCH (21:00)
[2019-10-30] MEDS: ATORVASTATIN 20 MG TAB PO SCH (22:12)
[2019-10-31] VITALS (89 sets, daily range): BP systolic 94–165; BP diastolic 51–107
--- NOTE | 2019-10-31 | NUR ---
Residuals Pt had 15cc's residual. Will continue TF at 30cc's/hr.
--- NOTE | 2019-10-31 02:00 | NUR ---
Pt having low grade fevers of 99.9-100.0 cooling measures applied.
[2019-10-31 03:53] LABS: Eosinophils # (auto) 0.1 10 ^3/uL (0-0.8); Eosinophils % (auto) 0.9 % (0.0-7.0); Hematocrit 37.9 % (41.0-53.0); Hemoglobin 12.3 g/dL (13.5-17.5); Lymphocytes # (auto) 1.8 10 ^3/uL (0.4-5.4); Nucleated Red Blood Cells % 0.1 %
[2019-10-31 03:56] LABS: Basophils # (auto) 0 10 ^3/uL (0-0.2); Basophils % (auto) 0.6 % (0.0-2.0); Lymphocytes % (auto) 21.9 % (10.0-50.0); Mean Corpuscular Hemoglobin 26.4 pg (28.0-32.0); Mean Corpuscular Hgb Conc. 32.3 g/dL (32.0-36.0); Mean Corpuscular Volume 81.6 fL (80.0-100.0); Monocytes % (auto) 11.6 % (0.0-12.0); Neutrophils # (auto) 5.3 10 ^3/uL (1.6-8.6); Platelet Count (auto) 312 10^3/uL (140-450); Red Blood Cells 4.65 10^6/uL (4.5-5.90); Red Cell Distribution Width 16.9 % (11.8-14.3); White Blood Cell 8.2 10^3/uL (4.4-10.8)
--- NOTE | 2019-10-31 04:00 | NUR ---
CARES PT given full bed bath and linen change. Pt tolerated well.
[2019-10-31 04:12] LABS: BUN/Creatinine Ratio 25.6; Calcium 8.4 mg/dL (8.5-10.1); Potassium 3.6 mmol/L (3.5-5.1)
[2019-10-31] MEDS: PROPOFOL 100 ML IV SCH ×3 (04:20→13:49)
[2019-10-31] MEDS: MIDAZOLAM DRIP 50 mg/50mL 50 ML IV SCH (05:26)
[2019-10-31] MEDS: InsuLIN REG 1unit/0.01ml Soln (100units/ml) SC SCH ×4 (06:00→18:00)
[2019-10-31] MEDS: FUROSEMIDE 40 MG/4 ML VIAL IV SCH ×2 (06:18→18:56)
[2019-10-31] MEDS: ACCU-CHEK COMFORT CURVE STRIP VI SCH ×4 (06:19→18:25)
--- NOTE | 2019-10-31 07:36 | NUR ---
report given to day shift RN to assume care.
--- NOTE | 2019-10-31 07:36 | NUR ---
REPORT RECEIVED FROM BETTING AGENCY COUNTER CLERK NURSE. PATIENT RESTING IN BED BED INTUBATED AND SEDATED. RESPIRATIONS EVEN AND UNLABORED. NO SIGNS OF ACUTE DISTRESS NOTED. BED IN LOW POSITION. WILL CONTINUE TO MONITOR.
--- NOTE | 2019-10-31 09:30 | NUR ---
DR URIBE AT BEDSIDE TO ASSESS PATIENT AND DISCUSS PLAN OF CARE. ALL ORDERS NOTED IN CHART.
[2019-10-31] MEDS: LISINOPRIL 20 MG TAB PO SCH (09:46)
[2019-10-31] MEDS: CIPROFLOXACIN 400MG/200ML 200 ML IV SCH ×2 (09:47→22:00)
[2019-10-31] MEDS: PANTOPRAZOLE 40 MG/10 ML VIAL INJ IV SCH (09:47)
[2019-10-31] MEDS: APIXABAN 5 MG TAB PO SCH ×2 (09:47→22:00)
[2019-10-31] MEDS: CARVEDILOL 12.5 MG TAB PO SCH ×2 (09:47→22:00)
[2019-10-31] MEDS: ASPirin 81 mg TAB PO SCH (09:48)
--- NOTE | 2019-10-31 10:00 | NUR ---
PATIENTS NANGUILLAUME LAWSON UPDATED ON PATIENT STATUS.
--- NOTE | 2019-10-31 12:45 | NUR ---
THORACENTESIS DR BETH REMOVED A TOTAL OF 462 MLS CLEAR, ANEL FLUID FROM RIGHT SIDE THORACENTESIS. SPECIMEN SENT TO LAB ORDERED BY .
--- NOTE | 2019-10-31 15:30 | NUR ---
ADVANCED ETT TO 26CM DUE TO XRAY IN AM. RN NOTIFIED.
[2019-10-31] MEDS ORDERED: FUROSEMIDE 20 MG/2 ML VIAL ONE (18:06)
[2019-10-31] MEDS: ACETAMINOPHEN 325 MG TAB PO PRN (19:14)
[2019-10-31] MEDS: ATORVASTATIN 20 MG TAB PO SCH (22:00)
[2019-11-01] VITALS (75 sets, daily range): BP systolic 108–192; BP diastolic 52–120
[2019-11-01 04:11] LABS: Basophils # (auto) 0 10 ^3/uL (0-0.2); Basophils % (auto) 0.5 % (0.0-2.0); Eosinophils # (auto) 0.1 10 ^3/uL (0-0.8); Lymphocytes # (auto) 1.7 10 ^3/uL (0.4-5.4); Neutrophils # (auto) 6.9 10 ^3/uL (1.6-8.6); Nucleated Red Blood Cells % 0.1 %
[2019-11-01 04:15] LABS: Eosinophils % (auto) 1.5 % (0.0-7.0); Hematocrit 39.8 % (41.0-53.0); Hemoglobin 12.9 g/dL (13.5-17.5); Lymphocytes % (auto) 17.7 % (10.0-50.0); Mean Corpuscular Hemoglobin 26.5 pg (28.0-32.0); Mean Corpuscular Hgb Conc. 32.5 g/dL (32.0-36.0); Mean Corpuscular Volume 81.5 fL (80.0-100.0); Monocytes % (auto) 9.8 % (0.0-12.0); Neutrophils % (auto) 70.5 % (37.0-80.0); Platelet Count (auto) 303 10^3/uL (140-450); Red Blood Cells 4.88 10^6/uL (4.5-5.90); Red Cell Distribution Width 16.8 % (11.8-14.3); White Blood Cell 9.8 10^3/uL (4.4-10.8)
[2019-11-01 04:30] LABS: BUN/Creatinine Ratio 23.7; Calcium 8.2 mg/dL (8.5-10.1); Magnesium 2.4 mg/dL (1.6-2.6); Potassium 3.2 mmol/L (3.5-5.1)
[2019-11-01] MEDS: FUROSEMIDE 40 MG/4 ML VIAL IV SCH (06:00)
[2019-11-01] MEDS: InsuLIN REG 1unit/0.01ml Soln (100units/ml) SC SCH ×4 (06:26→18:18)
[2019-11-01] MEDS: ACCU-CHEK COMFORT CURVE STRIP VI SCH ×4 (06:27→18:15)
--- NOTE | 2019-11-01 07:00 | NUR ---
Received report from [employer] ship. Initail assessment completed. See physical assessment for data. Will cont. to monitor.
--- NOTE | 2019-11-01 09:20 | NUR ---
Dr. Hernandes at the bedside.
[2019-11-01] MEDS: POTASSIUM CHL 20MEQ/100ML 100 ML IV SCH ×3 (10:00→16:10)
[2019-11-01] MEDS: PANTOPRAZOLE 40 MG/10 ML VIAL INJ IV SCH (10:02)
[2019-11-01] MEDS: CIPROFLOXACIN 400MG/200ML 200 ML IV SCH ×2 (10:02→22:00)
[2019-11-01] MEDS: APIXABAN 5 MG TAB PO SCH ×2 (10:03→22:00)
[2019-11-01] MEDS: LISINOPRIL 20 MG TAB PO SCH (10:03)
[2019-11-01] MEDS: CARVEDILOL 12.5 MG TAB PO SCH ×2 (10:04→22:00)
[2019-11-01] MEDS: ASPirin 81 mg TAB PO SCH (10:04)
[2019-11-01] MEDS: POTASSIUM EFFERVESENT TAB 25 MEQ PO SCH (10:21)
[2019-11-01] MEDS: DexMEDEtomidine 400 MCG in D5W 5% 96 ML IV SCH (14:28)
--- NOTE | 2019-11-01 15:48 | NUR ---
Nutrition Follow-up Wt.: 110.00 kg Pt is on mechanical ventilator. Pt remains NPO, was receiving EN support, currently held, with Glucerna 1.2 brissa @40ml/hr providing 960 ml, 1152 kcal, 58g protein, 773 ml water. Will continue to monitor NPO status, skin status, pertinent labs and weight trends. Will f/u in 2 to 3 days. Est energy needs: 7735-9414 kcals (14-18 kcal/kgBW) Est protein needs: 90-99 gms/day (1.0-1.1 gm/kgAdjBW) Labs 10/31: K 3.2 L, Glucose 158 H, POC 127 H, Ca 8.2 L PES: 1) Altered nutrition related lab values r/t current medical condition aeb hyperglycemia, hypocalcemia, 2) Inadequate nutrient intake r/t inadequate nutrient intake aeb pt sedated, intubated, NPO 3) Obesity r/t energy intake in excess of energy needs aeb 144% IBW and BMI of 35.0 kg/m2 Recommendations: 1) Continue to closely monitor pt NPO status 2) If pt remains NPO for the next 48 hours, consider resuming EN nutrition support of Glucerna @ 55ml/hr goal rate 3) Gradually advance pt to oral CCHO 60g diet when medically feasible and as tolerated 4) If albumin continues trending down , consider Prostat 1 pkt BID 5) Refer pt to RD for nutrition education upon D/C 6) Continue current plan of care
--- NOTE | 2019-11-01 16:00 | NUR ---
Patient bathe/linen change Patient given complete bath. Skin integrity assessed for any changes. Linens changed. Patient repositioned for comfort.
--- NOTE | 2019-11-01 16:31 | NUR ---
Respiratory note: CPAP TRIAL STARTED ORDERED BY . PT PLACED ON PEEP 5 P/S 7 30% FI02. PT IS AWAKE/ALERT FOLLOWING SIMPLE VERBAL COMMANDS. RN LISA AT BEDSIDE AND AWARE OF TRIAL. PT INITIAL VS HR 96 SPO2 97% RR 30 159/92. WITHIN 10 PT DEVELOPED INCREASED WOB 34 BP INCREASED TO 195/120. OBEY GONZALEZ AT BEDSIDE AND AGREES TO PLACE BACK ON AC MODE. PT NODS HEAD YES THAT HE FEEL BETTER ON AC MODE, WOB NOTED TO INCREASED RR NOW 24. CPAP TRIAL ENDED AT 16:42. DR. AGUIAR NOTIFIED.
--- NOTE | 2019-11-01 16:37 | NUR ---
CPAP trial Order for CPAP trial by . Patient completely off any sedation. Patient educated on need to remain calm, and to breathe steady/even. Room is distration free for patient comfort. RT at bedside placed patient ventilator on CPAP. Current sats 91%. Continue to monitor closely.
--- NOTE | 2019-11-01 16:45 | NUR ---
Bp 194/120 while pt on CPAP, resp. 33. RT put pt back on AC . Dr. Lawson notified.
[2019-11-01] MEDS: hydrALAZINE HCL 20 MG/ML VL IV PRN (16:53)
[2019-11-01] MEDS: FUROSEMIDE 100 MG/10ML VIAL IV SCH (18:35)
[2019-11-01] MEDS: ATORVASTATIN 20 MG TAB PO SCH (22:00)
[2019-11-02] VITALS (45 sets, daily range): BP systolic 98–160; BP diastolic 60–98
[2019-11-02] MEDS: MIDAZOLAM DRIP 50 mg/50mL 50 ML IV SCH (02:45)
[2019-11-02] MEDS: PROPOFOL 100 ML IV SCH (03:29)
[2019-11-02 04:39] LABS: Basophils # (auto) 0.1 10 ^3/uL (0-0.2); Lymphocytes # (auto) 1.8 10 ^3/uL (0.4-5.4)
[2019-11-02 04:42] LABS: Basophils % (auto) 0.5 % (0.0-2.0); Eosinophils # (auto) 0.2 10 ^3/uL (0-0.8); Eosinophils % (auto) 2.1 % (0.0-7.0); Hematocrit 41.2 % (41.0-53.0); Hemoglobin 13.4 g/dL (13.5-17.5); Lymphocytes % (auto) 16.8 % (10.0-50.0); Mean Corpuscular Hemoglobin 26.8 pg (28.0-32.0); Mean Corpuscular Hgb Conc. 32.6 g/dL (32.0-36.0); Mean Corpuscular Volume 82.4 fL (80.0-100.0); Monocytes # (auto) 1.1 10 ^3/uL (0-1.3); Monocytes % (auto) 10.3 % (0.0-12.0); Neutrophils # (auto) 7.7 10 ^3/uL (1.6-8.6); Neutrophils % (auto) 70.3 % (37.0-80.0); Nucleated Red Blood Cells % 0.1 %; Platelet Count (auto) 290 10^3/uL (140-450); Red Cell Distribution Width 17.4 % (11.8-14.3); White Blood Cell 10.9 10^3/uL (4.4-10.8)
[2019-11-02 04:44] LABS: BUN/Creatinine Ratio 20.3; Calcium 8.6 mg/dL (8.5-10.1); Magnesium 2.2 mg/dL (1.6-2.6); Potassium 3.6 mmol/L (3.5-5.1)
[2019-11-02] MEDS: ACCU-CHEK COMFORT CURVE STRIP VI SCH ×4 (06:00→18:07)
[2019-11-02] MEDS: FUROSEMIDE 100 MG/10ML VIAL IV SCH ×2 (06:00→18:06)
[2019-11-02] MEDS: InsuLIN REG 1unit/0.01ml Soln (100units/ml) SC SCH ×4 (06:00→18:00)
--- NOTE | 2019-11-02 07:30 | NUR ---
RECEIVED REPORT FROM interspireSubmit SHIP. INITIAL ASSESSMENT COMPLETED, SEE PHYSICAL ASSESSMENT FOR DATA. PT STILL INTUBATED AND SEDATED.
[2019-11-02] MEDS: ACETAMINOPHEN 325 MG TAB PO PRN (08:42)
[2019-11-02] MEDS: DexMEDEtomidine 400 MCG in D5W 5% 96 ML IV SCH (08:53)
[2019-11-02] MEDS: CIPROFLOXACIN 400MG/200ML 200 ML IV SCH ×2 (09:40→21:32)
[2019-11-02] MEDS: PANTOPRAZOLE 40 MG/10 ML VIAL INJ IV SCH (09:41)
[2019-11-02] MEDS: APIXABAN 5 MG TAB PO SCH ×2 (09:41→21:32)
[2019-11-02] MEDS: POTASSIUM EFFERVESENT TAB 25 MEQ PO SCH (09:41)
[2019-11-02] MEDS: ASPirin 81 mg TAB PO SCH (09:41)
[2019-11-02] MEDS: CARVEDILOL 12.5 MG TAB PO SCH ×2 (09:42→21:33)
[2019-11-02] MEDS: LISINOPRIL 20 MG TAB PO SCH (09:42)
--- NOTE | 2019-11-02 10:30 | NUR ---
PT ON CPAP TRIAL PER DR BETH. PT ABLE TO UNDERSTAND AND FOLLOW INDICATIONS. PT TOLERATING WELL. 96% O2 SATS, HR 70 BPM, RR18, BP 102/60.
--- NOTE | 2019-11-02 14:00 | NUR ---
PT EXTUBATED PE DR BETH. PT ON 40% COOL MIST VIA AEROSOL MASK. PT TOLERATING WELL. NO STRIDOR, SOB OR ANY OTHER RESPIRATORY DISTRESS NOTED. WILL CONTINUE TO MONITOR PT.
--- NOTE | 2019-11-02 14:42 | NUR ---
PT DOING WELL POST EXTUBATION. PT COOPERATIVE AND CALM. WILL CONTINUE TO MONITOR .
--- NOTE | 2019-11-02 16:02 | NUR ---
SIPS OF WATER , TOLERATED WELL. ENCOURAGED DEEP BREATHING EXERCISES.
--- NOTE | 2019-11-02 18:00 | NUR ---
PT TOLERATING PO WELL. WILL DISCONTINUE NGT.
--- NOTE | 2019-11-02 18:14 | NUR ---
Respiratory note: AT BEDSIDE TO ASSESS PT FOR PRN TX. TX IS INDICATED AT THIS TIME. BS ARE FINE COURSE T/O. AUDIBLE EXPIRATORY WHEEZE HEARD ON RIGHT UPPER LOBE. RN LISA AT BEDSIDE AND AWARE OF FINDINGS. MED NEB TX GIVEN VIA MASK AT THIS TIME WITHOUT ADVERSE REACTION NOTED. RT NAME AND PAGER ASSIGNMENT WRITTEN ON PTS ROOM BOARD WILL CONTINUE TO MONITOR.
--- NOTE | 2019-11-02 20:56 | NUR ---
PATIENT IS SITTING IN BED,
--- NOTE | 2019-11-02 21:05 | NUR ---
PT HAS NO C/O SOB, O2 SAT 98% ON 2L/MIN VIA N/C. EATING CLEAR LIQUIDS, NO DIFFICULTY SWALLOWING. LOW GRADE FEVER 100.2 RECTALLY.C/O BAD H/A, MEDICATED WITH TYLENOL.
[2019-11-02] MEDS: ATORVASTATIN 20 MG TAB PO SCH (21:32)
[2019-11-03 04:00] VITALS: BP_SYST 98
[2019-11-03 04:56] LABS: Basophils # (auto) 0.1 10 ^3/uL (0-0.2); Eosinophils # (auto) 0.3 10 ^3/uL (0-0.8); Lymphocytes # (auto) 2.5 10 ^3/uL (0.4-5.4)
[2019-11-03 04:59] LABS: Eosinophils % (auto) 2.7 % (0.0-7.0); Hematocrit 40.8 % (41.0-53.0); Hemoglobin 13.3 g/dL (13.5-17.5); Mean Corpuscular Hemoglobin 26.6 pg (28.0-32.0); Mean Corpuscular Hgb Conc. 32.6 g/dL (32.0-36.0); Mean Corpuscular Volume 81.7 fL (80.0-100.0); Monocytes % (auto) 10.7 % (0.0-12.0); Neutrophils # (auto) 5.7 10 ^3/uL (1.6-8.6); Neutrophils % (auto) 59.6 % (37.0-80.0); Platelet Count (auto) 320 10^3/uL (140-450); Red Cell Distribution Width 16.7 % (11.8-14.3); White Blood Cell 9.6 10^3/uL (4.4-10.8)
[2019-11-03 05:09] LABS: Potassium 3.6 mmol/L (3.5-5.1)
[2019-11-03 05:20] LABS: Albumin 2.7 g/dL (3.4-5.0); BUN/Creatinine Ratio 21.9; Calcium 8.4 mg/dL (8.5-10.1); Total Protein 6.8 g/dL (6.4-8.2)
[2019-11-03] MEDS: FUROSEMIDE 100 MG/10ML VIAL IV SCH ×2 (06:22→17:38)
--- NOTE | 2019-11-03 07:12 | NUR ---
PATIENT 'S STATUS CHANGED TO TELEMETRY, BED AVAILABLE IN RM 275, REPORT GIVEN TO SOMMER. PT TRANSFERED VIA BED ON TELE MONITOR IN STABLE CONDITION WITH ALL BELONGINGS.
--- NOTE | 2019-11-03 07:20 | NUR ---
ICU patient trans to floor SBAR received from CHANNEL CEMENTER OUTSOLE MACHINE Berkley. PERLA MCGEE transferred to [facility] via rfresno on mapping editor and portable 02. All patient medications and personal belongings transferred with patient to receiving floor. Patient oriented to Nataly Noguera RN primary RN, unit, room, bed, and unit policies regarding patient care and visiting hours. Patient now on continuous telemetry monitoring, tele box # 64 and telemetry reading on arrival to unit is A. FIB 90 BPM. Patient placed on bedside oxygen, weighed by bed scale and encouraged to call if they need something. All questions and concerns addressed, patient verbalized understanding.
[2019-11-03] MEDS: ASPirin 81 mg TAB PO SCH (11:21)
[2019-11-03] MEDS: APIXABAN 5 MG TAB PO SCH (11:21)
[2019-11-03] MEDS: POTASSIUM EFFERVESENT TAB 25 MEQ PO SCH (11:21)
[2019-11-03] MEDS: PANTOPRAZOLE 40 MG/10 ML VIAL INJ IV SCH (11:21)
[2019-11-03] MEDS: CIPROFLOXACIN 400MG/200ML 200 ML IV SCH (11:22)
[2019-11-03] MEDS: LISINOPRIL 20 MG TAB PO SCH (11:25)
[2019-11-03] MEDS: CARVEDILOL 12.5 MG TAB PO SCH (11:25)
[2019-11-03] MEDS: ACCU-CHEK COMFORT CURVE STRIP VI SCH ×3 (11:56→17:41)
[2019-11-03] MEDS: InsuLIN REG 1unit/0.01ml Soln (100units/ml) SC SCH ×3 (12:07→17:41)
[2019-11-03 12:22] LABS: Urine Bacteria NONE SEEN /hpf (None Seen); Urine Blood 1+ /uL (Negative); Urine Specific Gravity 1.017 (1.001-1.035); Urine WBC 1 /hpf (0 - 3)
[2019-11-03 14:24] VITALS: BP 147/98
--- NOTE | 2019-11-03 15:08 | NUR ---
1500 11/03/19 I spoke with [facility] Horse Trainer Teresa regarding SNF request on this patient-per Teresa it is better to transfer patient to [facility]-she said they have beds at [place]. I spoke with Dr. Hernandes and made him aware. I faxed transfer order and Notice Regarding Post Stabilization to [facility]-document scanned into [employer].
[2019-11-03] MEDS: ACETAMINOPHEN 325 MG TAB PO PRN (17:38)
[2019-11-03 18:32] VITALS: BP 145/93
--- NOTE | 2019-11-03 19:30 | NUR ---
Opening Shift Note Assumed care of patient. Patient is awake and alert. No S/S of distress/SOB or pain. Jaquez intact, patent, draining to gravity and below level of bladder. Instructed on POC and to call for assist PRN, will continue to monitor for changes Q1hr and PRN. Bed locked in lowest position and bed rails up x2. Call light within reach. Currently working on Transfer to [facility].
--- NOTE | 2019-11-03 19:42 | NUR ---
CLOSING SHIFT NOTE ENDORSED CARE TO ELECTRONIC PAGE MAKEUP SYSTEM OPERATOR OBEY FIERRO. INFORMED HER OF TRANSFER AT 1999. PATIENT HAS NO S/S OF DISTRESS/SOB OR PAIN AT THIS TIME.
--- NOTE | 2019-11-03 20:13 | NUR ---
Per day shift, ditch digger notified and aware of transfer and report given to OBEY reeder at [facility]
--- NOTE | 2019-11-03 20:55 | NUR ---
Patient leaving at this time with [facility] transportation. Patient and family aware of transfer to [facility], Room 338. Patient belongings leaving with him as well as IV and Jaquez. Patient accepting Dr: Boni Love Phone number: [phone].
== END 2019-11-03 20:55 | disposition short-term general hospital (02) | DRG 207 ==
LOC: EDBD 20:24 → ER 20:24 → TELE 20:25 → ICU WEST 10-28 18:25 → TELE-WESTW 11-03 07:20
PROVIDERS: ADMIT Nurse Practitioner; ATTEND Internal Medicine
PROC: 5A1955Z Respiratory Ventilation, Greater than 96 Consecutive Hours (ICD-10-PCS; principal; 2019-10-28)
PROC: 0BH17EZ Insertion of Endotracheal Airway into Trachea, Via Natural or Artificial Opening (ICD-10-PCS; 2019-10-28)
PROC: 0W993ZX Drainage of Right Pleural Cavity, Percutaneous Approach, Diagnostic (ICD-10-PCS; 2019-10-31)
PROC: 5A1935Z Respiratory Ventilation, Less than 24 Consecutive Hours (ICD-10-PCS; 2019-11-02)
PROC: 0BH17EZ Insertion of Endotracheal Airway into Trachea, Via Natural or Artificial Opening (ICD-10-PCS; 2019-11-02)
DX: J96.01 Acute respiratory failure with hypoxia (principal); I50.43 Acute on chronic combined systolic (congestive) and diastolic (congestive) heart failure; J15.0 Pneumonia due to Klebsiella pneumoniae; I48.20 Chronic atrial fibrillation, unspecified; J91.8 Pleural effusion in other conditions classified elsewhere; I48.92 Unspecified atrial flutter; E11.65 Type 2 diabetes mellitus with hyperglycemia; I25.10 Atherosclerotic heart disease of native coronary artery without angina pectoris; E66.9 Obesity, unspecified; I11.0 Hypertensive heart disease with heart failure; E78.5 Hyperlipidemia, unspecified; N40.0 Benign prostatic hyperplasia without lower urinary tract symptoms; J45.909 Unspecified asthma, uncomplicated; I48.91 Unspecified atrial fibrillation; Z82.49 Family history of ischemic heart disease and other diseases of the circulatory system; Z79.01 Long term (current) use of anticoagulants; Z79.51 Long term (current) use of inhaled steroids; Z79.84 Long term (current) use of oral hypoglycemic drugs; Z79.899 Other long term (current) drug therapy; Z80.0 Family history of malignant neoplasm of digestive organs; Z83.3 Family history of diabetes mellitus; Z86.711 Personal history of pulmonary embolism; Z86.718 Personal history of other venous thrombosis and embolism; Z95.5 Presence of coronary angioplasty implant and graft; Z03.818 Encounter for observation for suspected exposure to other biological agents ruled out; Z68.32 Body mass index [BMI] 32.0-32.9, adult
CPT/HCPCS: 31500; 32555; 36415; 36600; 51702; 71045; 80048; 80053; 81001; 82728; 82805; 82962; 83605; 83615; 83735; 83880; 83986; 84484; 85025; 85379; 85610; 85652; 85730; 87040; 87070; 87077; 87081; 87086; 87186; 87205; 87804; 87880; 89051; 93005; 93970; 94002; 94003; 94640; 96365; 96366; 96368; 96375; 96376; 97163; 99152; 99291; C9113; G0378; J0330; J0696; J1815; J2250; J2704; J3480; J7060

== ENCOUNTER 2023-09-23 17:43 | Inpatient (IN) | payer OTHER ==
[~2023-09-23] VITALS: Ht 182.9 cm; Wt 94.0 kg
[~2023-09-23 17:43] MED LIST changes: +ALBU2TAB11 PO; -ALBU2TAB4 PO; -LISI40TA PO; +LISI40TA16 PO; +MONT5CHW12 PO; -MONT5CHW17 PO
[2023-09-23] MEDS: LORazepam 2MG/ML-1ML VIAL IV ONE ×2 (18:00→19:01)
[2023-09-23] MEDS: LORazepam 2MG/ML-1ML VIAL ONE (18:00)
[2023-09-23] MEDS: IPRATROPIUM BROM 0.5 MG/2.5ML INH SOL HHN ONE (18:00)
[2023-09-23] MEDS: ALBUTEROL SULF 2.5 MG/0.5ML(0.5%) NEB SOLN HHN ONE (18:00)
[2023-09-23] MEDS: FUROSEMIDE 40 MG/4 ML VIAL IV ONE (18:27)
[2023-09-23 18:30] VITALS: PULSE 104; RESP 36; O2SAT 90
[2023-09-23 18:35] LABS: Basophils # (auto) 0.2 10 ^3/uL (0-0.2); Basophils % (auto) 1.1 % (0.0-2.0); Eosinophils # (auto) 0.2 10 ^3/uL (0-0.8); Eosinophils % (auto) 1.3 % (0.0-7.0); Hematocrit 40.9 % (41.0-53.0); Hemoglobin 13.1 g/dL (13.5-17.5); Lymphocytes # (auto) 1.8 10 ^3/uL (0.4-5.4); Lymphocytes % (auto) 10.3 % (10.0-50.0); Mean Corpuscular Hemoglobin 27.5 pg (28.0-32.0); Mean Corpuscular Hgb Conc. 31.9 g/dL (32.0-36.0); Mean Corpuscular Volume 86.2 fL (80.0-100.0); Monocytes # (auto) 0.6 10 ^3/uL (0-1.3); Monocytes % (auto) 3.5 % (0.0-12.0); Neutrophils # (auto) 14.8 10 ^3/uL (1.6-8.6); Neutrophils % (auto) 83.8 % (37.0-80.0); Nucleated Red Blood Cells % 0.1 %; Red Blood Cells 4.75 10^6/uL (4.5-5.90); Red Cell Distribution Width 16.6 % (11.8-14.3); White Blood Cell 17.6 10^3/uL (4.4-10.8)
[2023-09-23 18:37] LABS: Base Excess -10.2 mmol/L (-2.0-2.0)
[2023-09-23 19:08] LABS: Lactic Acid w/Reflex 5.1 mmol/L (0.4-2.0)
[2023-09-23 19:43] LABS: Chloride 107 mmol/L (98-107); Sodium 139 mmol/L (136-145)
[2023-09-23 19:44] LABS: Potassium 3.8 mmol/L (3.5-5.1)
[2023-09-23 19:45] VITALS: PULSE 93; RESP 42; O2SAT 93
[2023-09-23 19:46] LABS: Anion Gap 12 (5-15); Calcium 9.5 mg/dL (8.7-10.4); Carbon Dioxide 20 mmol/L (20-30)
[2023-09-23 19:51] LABS: Alkaline Phosphatase 101 U/L (46-116); Glucose 369 mg/dL (74-106)
[2023-09-23 19:53] LABS: Aspartate Aminotransferase 20 U/L (13-40); Bilirubin, Total 1.3 mg/dL (0.2-1.0); Total Protein 7.6 g/dL (5.7-8.2)
[2023-09-23 20:08] LABS: Alanine Aminotransferase 30 U/L (7-40); Albumin 4.8 g/dL (3.2-4.8)
[2023-09-23 20:09] LABS: BUN/Creatinine Ratio 14.9 (10.0-20.0); Blood Urea Nitrogen 15 mg/dL (9-23)
[2023-09-23 20:18] LABS: Base Excess -5.6 mmol/L (-2.0-2.0)
[2023-09-23] MEDS: NITROGLYCERIN 2% OINT 1GM PKG TD ONE (20:31)
[2023-09-23] MEDS ORDERED: DEXTROSE (50%) 50ML SYRG IV PRN ×2 (21:15→21:30)
[2023-09-23] MEDS ORDERED: AZITHROMYCIN 500MG/ 250ML 250 ML IV ONE (21:15)
[2023-09-23] MEDS ORDERED: ALBUTEROL SULF 2.5 MG/0.5ML(0.5%) NEB SOLN NEB PRN (21:15)
[2023-09-23] MEDS ORDERED: NITROGLYCERIN 0.4 MG SL TAB SL PRN ×2 (21:15→21:30)
[2023-09-23] MEDS ORDERED: cefTRIAXone 1GM/50ML D5W 50 ML IV ONE (21:15)
[2023-09-23] MEDS ORDERED: ONDANSETRON HCL 4 MG/2 ML VIAL IV PRN ×2 (21:15→21:30)
[2023-09-23] MEDS ORDERED: MORPHINE SULFATE INJ 2 MG/ml SYRG IV PRN ×2 (21:15→21:30)
[2023-09-23] MEDS ORDERED: ACETAMINOPHEN 325 MG TAB PO PRN (21:15)
[2023-09-23 21:42] LABS: COVID19 ANTIGEN SOFIA FIA NEGATIVE (NEGATIVE)
[2023-09-23] MEDS ORDERED: APIXABAN 5 MG TAB PO SCH (22:00)
[2023-09-23] MEDS ORDERED: AMIODARONE HCL 200 MG TAB PO SCH (22:00)
[2023-09-23] MEDS ORDERED: ATORVASTATIN 20 MG TAB PO SCH (22:00)
[2023-09-23 22:11] VITALS: BP 155/83; PULSE 99; O2SAT 95
[2023-09-23] MEDS: cefTRIAXone 1GM/50ML D5W 50 ML IV ONE (23:28)
[2023-09-23] MEDS: AZITHROMYCIN 500MG/ 250ML 250 ML IV ONE (23:28)
[2023-09-23] MEDS: IOHEXOL 350 MG/ML 100ML IJ ONE (23:29)
[2023-09-23 23:35] VITALS: BP 155/83; PULSE 99; RESP 25; TEMP 97.2; O2SAT 96
[2023-09-24] VITALS (7 sets, daily range): BP systolic 160; BP diastolic 92; PULSE 80–90; RESP 17–26; O2SAT 94–98
[2023-09-24] MEDS ORDERED: ACCU-CHEK COMFORT CURVE STRIP VI SCH
[2023-09-24] MEDS: InsuLIN REG 1unit/0.01ml Soln (100units/ml) SC SCH
[2023-09-24] MEDS ORDERED: InsuLIN REG 1unit/0.01ml Soln (100units/ml) SC SCH
[2023-09-24] MEDS: ACCU-CHEK COMFORT CURVE STRIP VI SCH (00:15)
[2023-09-24] MEDS: ENOXAPARIN SOD 100 MG/1 ML SYRINGE SC ONE (03:21)
[2023-09-24 03:28] LABS: Basophils # (auto) 0.1 10 ^3/uL (0-0.2); Basophils % (auto) 0.3 % (0.0-2.0); Eosinophils # (auto) 0 10 ^3/uL (0-0.8); Hematocrit 38.7 % (41.0-53.0); Hemoglobin 12.5 g/dL (13.5-17.5); Lymphocytes # (auto) 1.5 10 ^3/uL (0.4-5.4); Lymphocytes % (auto) 7.8 % (10.0-50.0); Mean Corpuscular Hemoglobin 27.9 pg (28.0-32.0); Mean Corpuscular Hgb Conc. 32.2 g/dL (32.0-36.0); Mean Corpuscular Volume 86.5 fL (80.0-100.0); Monocytes # (auto) 1.1 10 ^3/uL (0-1.3); Monocytes % (auto) 5.6 % (0.0-12.0); Neutrophils # (auto) 16.2 10 ^3/uL (1.6-8.6); Neutrophils % (auto) 86.3 % (37.0-80.0); Red Blood Cells 4.47 10^6/uL (4.5-5.90); Red Cell Distribution Width 15.7 % (11.8-14.3); White Blood Cell 18.7 10^3/uL (4.4-10.8)
[2023-09-24 03:44] LABS: Alanine Aminotransferase 25 U/L (7-40); Albumin 4.3 g/dL (3.2-4.8); Alkaline Phosphatase 82 U/L (46-116); Anion Gap 8 (5-15); Aspartate Aminotransferase 15 U/L (13-40); BUN/Creatinine Ratio 16.2 (10.0-20.0); Bilirubin, Total 1.1 mg/dL (0.2-1.0); Blood Urea Nitrogen 11 mg/dL (9-23); Carbon Dioxide 23 mmol/L (20-30); Chloride 107 mmol/L (98-107); Potassium 3.4 mmol/L (3.5-5.1); Sodium 138 mmol/L (136-145); Total Protein 6.7 g/dL (5.7-8.2)
[2023-09-24 03:46] LABS: Glucose 155 mg/dL (74-106)
[2023-09-24] MEDS: FUROSEMIDE 20 MG/2 ML VIAL IV SCH ×2 (06:00→06:09)
[2023-09-24] MEDS ORDERED: FUROSEMIDE 20 MG/2 ML VIAL IV SCH ×2 (06:00)
[2023-09-24] MEDS: ACETAMINOPHEN 325 MG TAB PO PRN (06:24)
[2023-09-24] MEDS ORDERED: METF-929 PO (08:36)
[2023-09-24] MEDS ORDERED: CARV12.544 PO (08:36)
[2023-09-24] MEDS ORDERED: MONT10TA23 PO (08:36)
[2023-09-24] MEDS ORDERED: AMIO200T33 PO (08:42)
[2023-09-24] MEDS ORDERED: DILT-29 PO (08:42)
[2023-09-24] MEDS ORDERED: ALBU0.084 NEB (08:42)
[2023-09-24] MEDS ORDERED: cefTRIAXone 1GM/50ML D5W 50 ML IV SCH (09:00)
[2023-09-24] MEDS: cefTRIAXone 1GM/50ML D5W 50 ML IV SCH (09:15)
[2023-09-24] MEDS: ALBUTEROL SULF 2.5 MG/0.5ML(0.5%) NEB SOLN NEB PRN (09:33)
[2023-09-24] MEDS ORDERED: AZITHROMYCIN 500MG/ 250ML 250 ML IV SCH (10:00)
[2023-09-24] MEDS ORDERED: dilTIAZem 120MG ER CAP PO SCH (10:00)
[2023-09-24] MEDS ORDERED: SPIRONOLACTONE 25 MG TAB PO SCH (10:00)
[2023-09-24] MEDS: AMIODARONE HCL 200 MG TAB PO SCH ×2 (10:21→22:55)
[2023-09-24] MEDS: AZITHROMYCIN 500MG/ 250ML 250 ML IV SCH (10:22)
[2023-09-24] MEDS: dilTIAZem 120MG ER CAP PO SCH (10:49)
[2023-09-24] MEDS: SPIRONOLACTONE 25 MG TAB PO SCH (10:50)
[2023-09-24] MEDS: APIXABAN 5 MG TAB PO SCH ×2 (10:51→22:56)
[2023-09-24] MEDS: POTASSIUM CHL 20 Meq TABLET PO ONE (14:00)
[2023-09-24 20:58] LABS: Urine Bacteria NONE SEEN /hpf (None Seen); Urine Blood Negative /uL (Negative); Urine Clarity Clear (Clear); Urine Color Colorless (Yellow); Urine Protein, UAD Negative (Negative); Urine Specific Gravity 1.008 (1.001-1.035); Urine Urobilinogen Normal (Negative); Urine WBC <1 /hpf (0 - 3); Urine pH 7.5 (5.0-8.0)
[2023-09-24] MEDS: ATORVASTATIN 20 MG TAB PO SCH (22:57)
[2023-09-25] VITALS (7 sets, daily range): BP systolic 137–159; BP diastolic 73–80; PULSE 67–84; RESP 18–20; TEMP 97–98.2; O2SAT 91–97
[2023-09-25] MEDS: DOXYCYCLINE 100MG/250ML 250 ML IV SCH (00:27)
[2023-09-25 06:40] LABS: Basophils # (auto) 0.1 10 ^3/uL (0-0.2); Basophils % (auto) 0.6 % (0.0-2.0); Eosinophils # (auto) 0.3 10 ^3/uL (0-0.8); Eosinophils % (auto) 2.7 % (0.0-7.0); Hematocrit 39.5 % (41.0-53.0); Hemoglobin 12.9 g/dL (13.5-17.5); Lymphocytes # (auto) 2.4 10 ^3/uL (0.4-5.4); Lymphocytes % (auto) 20.2 % (10.0-50.0); Mean Corpuscular Hemoglobin 27.5 pg (28.0-32.0); Mean Corpuscular Hgb Conc. 32.6 g/dL (32.0-36.0); Mean Corpuscular Volume 84.4 fL (80.0-100.0); Monocytes # (auto) 0.9 10 ^3/uL (0-1.3); Monocytes % (auto) 7.3 % (0.0-12.0); Neutrophils # (auto) 8.2 10 ^3/uL (1.6-8.6); Neutrophils % (auto) 69.2 % (37.0-80.0); Nucleated Red Blood Cells % 0.1 %; Red Blood Cells 4.68 10^6/uL (4.5-5.90); Red Cell Distribution Width 16.2 % (11.8-14.3); White Blood Cell 11.9 10^3/uL (4.4-10.8)
[2023-09-25 07:01] LABS: Anion Gap 7 (5-15); Carbon Dioxide 24 mmol/L (20-30); Chloride 107 mmol/L (98-107); Potassium 3.5 mmol/L (3.5-5.1); Sodium 138 mmol/L (136-145)
[2023-09-25 07:02] LABS: Calcium 9.3 mg/dL (8.5-10.1)
[2023-09-25 07:07] LABS: BUN/Creatinine Ratio 15.1 (10.0-20.0); Blood Urea Nitrogen 11 mg/dL (9-23); Glucose 136 mg/dL (74-106)
[2023-09-25] MEDS: MONTELUKAST SODIUM 10 MG TAB PO SCH (11:04)
[2023-09-25] MEDS: TERAZOSIN HCL 1 MG CAP PO SCH (11:04)
== END 2023-09-25 20:39 | disposition short-term general hospital (02) | DRG 871 ==
LOC: ER 17:43 → EDBD 17:43 → TELE 21:20 → ER 21:20 → TELE-CENTR 09-24 21:55
PROVIDERS: ADMIT Nurse Practitioner; ATTEND Internal Medicine
PROC: 5A09357 Assistance with Respiratory Ventilation, Less than 24 Consecutive Hours, Continuous Positive Airway Pressure (ICD-10-PCS; principal; 2023-09-23)
PROC: 5A09357 Assistance with Respiratory Ventilation, Less than 24 Consecutive Hours, Continuous Positive Airway Pressure (ICD-10-PCS; 2023-09-24)
DX: A41.9 Sepsis, unspecified organism (principal); I21.A1 Myocardial infarction type 2; J96.21 Acute and chronic respiratory failure with hypoxia; J15.69 Pneumonia due to other Gram-negative bacteria; J15.9 Unspecified bacterial pneumonia; I50.33 Acute on chronic diastolic (congestive) heart failure; D68.69 Other thrombophilia; J44.0 Chronic obstructive pulmonary disease with (acute) lower respiratory infection; J44.1 Chronic obstructive pulmonary disease with (acute) exacerbation; J45.909 Unspecified asthma, uncomplicated; I34.0 Nonrheumatic mitral (valve) insufficiency; I48.91 Unspecified atrial fibrillation; E78.5 Hyperlipidemia, unspecified; Z20.822 Contact with and (suspected) exposure to COVID-19; I11.0 Hypertensive heart disease with heart failure; J44.9 Chronic obstructive pulmonary disease, unspecified; E11.65 Type 2 diabetes mellitus with hyperglycemia; Z86.711 Personal history of pulmonary embolism; Z88.8 Allergy status to other drugs, medicaments and biological substances
CPT/HCPCS: 36415; 36600; 71045; 71275; 80048; 80053; 81001; 82805; 82962; 83036; 83605; 83735; 83880; 84484; 85025; 85379; 87040; 87426; 93005; 93306; 94640; 94660; 96374; 96375; 96376; G0378; J1815; J3490

== ENCOUNTER 2023-11-14 14:57 | Inpatient (IN) | payer OTHER ==
[~2023-11-14] VITALS: Ht 182.9 cm; Wt 96.3 kg
[~2023-11-14 14:57] MED LIST changes: +ALBU0.084 NEB; -ALBU2TAB11 PO; -ALBUAER3 IN; +AMIO200T33 PO; -ATO40T PO; +ATOR-507 PO; +CARV12.544 PO; -CARV3.1240 PO; +DILT-29 PO; -FLUT250M2 INH; -FURO1TAB31 PO; -METF-370 PO; +METF-929 PO; +MONT10TA23 PO; -MONT5CHW12 PO; -SPIR25TA8 PO; -TERA1CAP33 PO; +TERA1CAP52 PO
[2023-11-14 16:20] LABS: Hemoglobin 13.1 g/dL (13.5-17.5)
[2023-11-14 16:21] LABS: Hematocrit 41.2 % (41.0-53.0); Mean Corpuscular Hgb Conc. 31.7 g/dL (32.0-36.0); Mean Corpuscular Volume 85.1 fL (80.0-100.0); Red Blood Cells 4.84 10^6/uL (4.5-5.90); Red Cell Distribution Width 17.1 % (11.8-14.3); White Blood Cell 24.3 10^3/uL (4.4-10.8)
[2023-11-14 16:25] VITALS: RESP 28; O2SAT 99
[2023-11-14 16:26] LABS: Basophils % (manual) 0 (0.0-2.0); Eosinophils % (manual) 0 (0-7); Metamyelocytes % 0; Myelocytes % 0
[2023-11-14 16:27] LABS: Blast Cells 0; Promyelocytes % 0; Reactive Lymphocytes 0
[2023-11-14 16:33] LABS: Alanine Aminotransferase 65 U/L (7-40); Alkaline Phosphatase 103 U/L (46-116); Anion Gap 12 (5-15); Aspartate Aminotransferase 34 U/L (13-40); BUN/Creatinine Ratio 10.2 (10.0-20.0); Blood Urea Nitrogen 11 mg/dL (9-23); Calcium 9.6 mg/dL (8.7-10.4); Carbon Dioxide 19 mmol/L (20-30); Chloride 107 mmol/L (98-107); Potassium 4.3 mmol/L (3.5-5.1); Sodium 138 mmol/L (136-145)
[2023-11-14 16:34] LABS: Bilirubin, Total 0.9 mg/dL (0.2-1.0); Total Protein 7.4 g/dL (5.7-8.2)
[2023-11-14 16:54] LABS: Glucose 408 mg/dL (74-106)
[2023-11-14] MEDS: cefTRIAXone 1GM/50ML D5W 50 ML IV ONE (17:34)
[2023-11-14] MEDS: LORazepam 2MG/ML-1ML VIAL IV ONE ×2 (17:35→22:19)
[2023-11-14 18:15] VITALS: BP_SYST 155; BP_SYST 179; BP_DIAS 116; BP_DIAS 97; PULSE 111; RESP 35; O2SAT 98
[2023-11-14 18:28] LABS: Lactic Acid w/Reflex 3.1 mmol/L (0.4-2.0)
[2023-11-14 18:31] LABS: Anisocytosis Slight; Band Neutrophils % (manual) 2; Lymphocytes % (manual) 8 (10.0-50.0); Monocytes % (manual) 7 (0-12); Platelet Estimate Adequate
[2023-11-14] MEDS: SODIUM CHLORIDE 0.9% 2,350 ML IV ONE (18:49)
[2023-11-14 19:30] VITALS: O2SAT 99
[2023-11-14 21:33] LABS: Urine Bacteria None Seen /hpf (None Seen)
[2023-11-14 22:03] LABS: Urine Blood Negative /uL (Negative); Urine Clarity Turbid (Clear); Urine Color Light-Yellow (Yellow); Urine Protein, UAD 1+ (Negative); Urine Specific Gravity 1.014 (1.001-1.035); Urine Urobilinogen Normal (Negative); Urine WBC 3 /hpf (0 - 3)
[2023-11-14 22:15] VITALS: BP 154/99; PULSE 113; O2SAT 96
[2023-11-14] MEDS: FUROSEMIDE 40 MG/4 ML VIAL IV ONE (22:19)
[2023-11-15] VITALS: O2SAT 96
[2023-11-15] MEDS ORDERED: ALBUTEROL SULF 2.5 MG/0.5ML(0.5%) NEB SOLN NEB PRN (02:30)
[2023-11-15] MEDS ORDERED: ONDANSETRON HCL 4 MG/2 ML VIAL IV PRN (02:30)
[2023-11-15] MEDS ORDERED: NITROGLYCERIN 0.4 MG SL TAB SL PRN (02:30)
[2023-11-15] MEDS ORDERED: MORPHINE SULFATE INJ 2 MG/ml SYRG IV PRN (02:30)
[2023-11-15] MEDS ORDERED: DEXTROSE (50%) 50ML SYRG IV PRN (02:30)
[2023-11-15 03:24] LABS: Lactic Acid w/Reflex 4.1 mmol/L (0.4-2.0)
[2023-11-15] MEDS: AZITHROMYCIN 500MG/ 250ML 250 ML IV ONE (03:25)
[2023-11-15] MEDS: ACCU-CHEK COMFORT CURVE STRIP VI SCH (04:09)
[2023-11-15] MEDS: InsuLIN REG 1unit/0.01ml Soln (100units/ml) SC SCH (04:14)
[2023-11-15] MEDS: FUROSEMIDE 20 MG/2 ML VIAL IV SCH (05:10)
[2023-11-15 08:00] VITALS: PULSE 114; RESP 33; O2SAT 93
[2023-11-15 08:21] VITALS: O2SAT 92
[2023-11-15] MEDS: LISINOPRIL 20 MG TAB PO SCH (10:07)
[2023-11-15] MEDS: dilTIAZem 120MG ER CAP PO SCH (10:07)
[2023-11-15] MEDS: AMIODARONE HCL 200 MG TAB PO SCH (10:07)
[2023-11-15] MEDS: CARVEDILOL 12.5 MG TAB PO SCH (10:08)
[2023-11-15] MEDS: APIXABAN 5 MG TAB PO SCH (10:11)
[2023-11-15] MEDS ORDERED: VANCOMYCIN PER PHARMACY 0 MG IV SCH (16:00)
[2023-11-15] MEDS ORDERED: cefTRIAXone 1GM/50ML D5W 50 ML IV SCH (17:00)
[2023-11-15 19:30] VITALS: PULSE 110; RESP 18; O2SAT 99
[2023-11-15] MEDS: IPRATROPIUM BROM 0.5 MG/2.5ML INH SOL NEB SCH (19:54)
[2023-11-15] MEDS: ALBUTEROL SULF 2.5 MG/0.5ML(0.5%) NEB SOLN NEB SCH (19:54)
[2023-11-15 19:55] VITALS: PULSE 100; RESP 20; O2SAT 98
[2023-11-15] MEDS: BUDESONIDE (INHALATION) 0.5 MG/2 ML NEB NEB SCH (19:55)
[2023-11-15 20:05] VITALS: PULSE 100; RESP 20; O2SAT 99
[2023-11-15] MEDS: VANCOMYCIN 1GM/200ML 200 ML IV ONE (20:15)
[2023-11-15 22:25] LABS: COVID19 ANTIGEN SOFIA FIA NEGATIVE (NEGATIVE)
[2023-11-15 22:26] LABS: Rapid Influenza A Negative (Negative); Rapid Influenza B Negative (Negative)
[2023-11-15] MEDS: MONTELUKAST SODIUM 10 MG TAB PO SCH (22:58)
[2023-11-15] MEDS: CEFEPIME 1GM/ 50ML 50 ML IV SCH (22:58)
[2023-11-16] VITALS (19 sets, daily range): BP systolic 128–147; BP diastolic 85–96; PULSE 67–102; RESP 16–91; TEMP 97.5–98.1; O2SAT 77–100
[2023-11-16] MEDS ORDERED: FURO40TA4 PO (00:35)
[2023-11-16] MEDS ORDERED: TRAZ-227 PO (00:35)
[2023-11-16] MEDS: ACETAMINOPHEN 325 MG TAB PO PRN (01:45)
[2023-11-16] MEDS ORDERED: AZITHROMYCIN 500MG/ 250ML 250 ML IV SCH (03:00)
[2023-11-16 06:35] LABS: Basophils % (auto) 0.3 % (0.0-2.0); Eosinophils # (auto) 0 10 ^3/uL (0-0.8); Monocytes # (auto) 1.1 10 ^3/uL (0-1.3); Neutrophils # (auto) 11.9 10 ^3/uL (1.6-8.6); Nucleated Red Blood Cells % 0.1 %
[2023-11-16 06:37] LABS: Basophils # (auto) 0.1 10 ^3/uL (0-0.2); Hematocrit 33.9 % (41.0-53.0); Lymphocytes # (auto) 2.6 10 ^3/uL (0.4-5.4); Lymphocytes % (auto) 16.6 % (10.0-50.0); Mean Corpuscular Hemoglobin 26.8 pg (28.0-32.0); Mean Corpuscular Hgb Conc. 32.4 g/dL (32.0-36.0); Mean Corpuscular Volume 82.7 fL (80.0-100.0); Monocytes % (auto) 7.1 % (0.0-12.0); Red Cell Distribution Width 17.2 % (11.8-14.3); White Blood Cell 15.7 10^3/uL (4.4-10.8)
[2023-11-16 06:47] LABS: Alanine Aminotransferase 62 U/L (7-40); Albumin 4.3 g/dL (3.2-4.8); Alkaline Phosphatase 72 U/L (46-116); Anion Gap 10 (5-15); Aspartate Aminotransferase 51 U/L (13-40); BUN/Creatinine Ratio 21.5 (10.0-20.0); Bilirubin, Total 1.2 mg/dL (0.2-1.0); Blood Urea Nitrogen 17 mg/dL (9-23); Calcium 9.4 mg/dL (8.5-10.1); Carbon Dioxide 24 mmol/L (20-30); Chloride 106 mmol/L (98-107); Potassium 3.8 mmol/L (3.5-5.1); Sodium 140 mmol/L (136-145); Total Protein 6.7 g/dL (5.7-8.2)
[2023-11-16 06:54] LABS: Glucose 135 mg/dL (74-106)
[2023-11-16] MEDS: VANCOMYCIN 1GM/200ML 200 ML IV SCH (08:20)
[2023-11-16] MEDS: FUROSEMIDE 20 MG/2 ML VIAL IV SCH (09:23)
[2023-11-16] MEDS: traZODone HCL 50 MG TAB PO SCH (22:40)
[2023-11-17] VITALS (7 sets, daily range): BP systolic 133–161; BP diastolic 86–96; PULSE 76–89; RESP 18–20; TEMP 36.3; O2SAT 94–100
[2023-11-17 06:28] LABS: Eosinophils # (auto) 0 10 ^3/uL (0-0.8); Lymphocytes # (auto) 2.7 10 ^3/uL (0.4-5.4); Monocytes # (auto) 0.9 10 ^3/uL (0-1.3)
[2023-11-17 06:30] LABS: Basophils # (auto) 0.1 10 ^3/uL (0-0.2); Basophils % (auto) 0.4 % (0.0-2.0); Eosinophils % (auto) 0.2 % (0.0-7.0); Hematocrit 33.1 % (41.0-53.0); Hemoglobin 10.9 g/dL (13.5-17.5); Lymphocytes % (auto) 23.1 % (10.0-50.0); Mean Corpuscular Hemoglobin 27.4 pg (28.0-32.0); Mean Corpuscular Hgb Conc. 32.8 g/dL (32.0-36.0); Mean Corpuscular Volume 83.6 fL (80.0-100.0); Monocytes % (auto) 7.8 % (0.0-12.0); Neutrophils % (auto) 68.5 % (37.0-80.0); Red Blood Cells 3.96 10^6/uL (4.5-5.90); Red Cell Distribution Width 16.8 % (11.8-14.3); White Blood Cell 11.7 10^3/uL (4.4-10.8)
[2023-11-17 06:50] LABS: Chloride 105 mmol/L (98-107); Potassium 3.4 mmol/L (3.5-5.1); Sodium 139 mmol/L (136-145)
[2023-11-17 06:51] LABS: Anion Gap 11 (5-15); Calcium 9.3 mg/dL (8.7-10.4); Carbon Dioxide 23 mmol/L (20-30)
[2023-11-17 06:56] LABS: Glucose 136 mg/dL (74-106)
[2023-11-17 06:57] LABS: Blood Urea Nitrogen 21 mg/dL (9-23)
[2023-11-17] MEDS ORDERED: CEFD300C2 PO (09:33)
[2023-11-17] MEDS ORDERED: DOXY-448 PO (09:33)
[2023-11-17] MEDS: TERAZOSIN HCL 1 MG CAP PO SCH (10:19)
[2023-11-17] MEDS ORDERED: VANCOMYCIN 1GM/200ML 200 ML IV SCH (16:00)
== END 2023-11-17 10:45 | disposition home or self-care (01) | DRG 871 ==
LOC: ER 14:57 → EDBD 14:57 → TELE 11-15 02:34 → TELE-CENTR 11-15 02:34 → CENTRAL 11-16 14:13
PROVIDERS: ADMIT Nurse Practitioner; ATTEND Nurse Practitioner Acute Care
PROC: 5A09357 Assistance with Respiratory Ventilation, Less than 24 Consecutive Hours, Continuous Positive Airway Pressure (ICD-10-PCS; principal; 2023-11-14)
DX: A41.9 Sepsis, unspecified organism (principal); J15.69 Pneumonia due to other Gram-negative bacteria; J96.21 Acute and chronic respiratory failure with hypoxia; J15.9 Unspecified bacterial pneumonia; J44.0 Chronic obstructive pulmonary disease with (acute) lower respiratory infection; D68.9 Coagulation defect, unspecified; J44.1 Chronic obstructive pulmonary disease with (acute) exacerbation; I11.0 Hypertensive heart disease with heart failure; I50.9 Heart failure, unspecified; I48.91 Unspecified atrial fibrillation; E11.9 Type 2 diabetes mellitus without complications; Z20.822 Contact with and (suspected) exposure to COVID-19; E78.5 Hyperlipidemia, unspecified; Z86.711 Personal history of pulmonary embolism; Z90.49 Acquired absence of other specified parts of digestive tract; Z88.8 Allergy status to other drugs, medicaments and biological substances
CPT/HCPCS: 36415; 36600; 71045; 71275; 80048; 80053; 80202; 81001; 82805; 82962; 83605; 83880; 84484; 85007; 85025; 85027; 85379; 87040; 87081; 87426; 87804; 93005; 94640; 94660; 96365; 96375; 99291; G0378; J1815

== ENCOUNTER 2024-01-19 23:37 | Inpatient (IN) | payer OTHER ==
[~2024-01-19] VITALS: Ht 177.8 cm; Wt 98.1 kg
[~2024-01-19 23:37] MED LIST changes: +CEFD300C2 PO; +DOXY-448 PO; +FURO40TA4 PO; +TRAZ-227 PO
[2024-01-19 23:40] VITALS: BP 171/86; PULSE 92; O2SAT 98
[2024-01-19 23:47] VITALS: PULSE 95; RESP 37; O2SAT 99
[2024-01-20] VITALS (16 sets, daily range): BP systolic 138–189; BP diastolic 72–103; PULSE 74–112; RESP 20–30; TEMP 97.2–98.6; O2SAT 91–100
[2024-01-20] LABS: Basophils # (auto) 0.2 10 ^3/uL (0-0.2); Basophils % (auto) 1.2 % (0.0-2.0); Eosinophils # (auto) 0.4 10 ^3/uL (0-0.8); Eosinophils % (auto) 2.4 % (0.0-7.0); Hematocrit 42.5 % (41.0-53.0); Hemoglobin 13.4 g/dL (13.5-17.5); Lymphocytes # (auto) 3.7 10 ^3/uL (0.4-5.4); Mean Corpuscular Hemoglobin 28.3 pg (28.0-32.0); Mean Corpuscular Hgb Conc. 31.5 g/dL (32.0-36.0); Mean Corpuscular Volume 89.7 fL (80.0-100.0); Monocytes % (auto) 6.5 % (0.0-12.0); Neutrophils # (auto) 10.6 10 ^3/uL (1.6-8.6); Neutrophils % (auto) 66.9 % (37.0-80.0); Nucleated Red Blood Cells % 0.1 %; Red Blood Cells 4.74 10^6/uL (4.5-5.90); Red Cell Distribution Width 22.2 % (11.8-14.3); White Blood Cell 15.9 10^3/uL (4.4-10.8)
[2024-01-20] MEDS: ALBUTEROL SULF 2.5 MG/0.5ML(0.5%) NEB SOLN NEB ONE (00:06)
[2024-01-20] MEDS: IPRATROPIUM BROM 0.5 MG/2.5ML INH SOL NEB ONE (00:06)
[2024-01-20 00:14] LABS: Alanine Aminotransferase 24 U/L (7-40); Albumin 4.8 g/dL (3.2-4.8); Alkaline Phosphatase 102 U/L (46-116); Anion Gap 10 (5-15); Aspartate Aminotransferase 26 U/L (13-40); BUN/Creatinine Ratio 11.4 (10.0-20.0); Bilirubin, Total 0.5 mg/dL (0.2-1.0); Blood Urea Nitrogen 12 mg/dL (9-23); Calcium 9.2 mg/dL (8.7-10.4); Carbon Dioxide 20 mmol/L (20-30); Chloride 110 mmol/L (98-107); Glucose 331 mg/dL (74-106); Sodium 140 mmol/L (136-145); Total Protein 7.5 g/dL (5.7-8.2)
[2024-01-20] MEDS: methylPREDNISolone SOD SUCC 125 MG/2 ML VL IV ONE (00:27)
[2024-01-20 00:43] LABS: Base Excess -6.7 mmol/L (-2.0-2.0)
[2024-01-20] MEDS: FUROSEMIDE 40 MG/4 ML VIAL IV ONE ×2 (00:45→02:02)
[2024-01-20] MEDS: NITROGLYCERIN 2% OINT 1GM PKG TD ONE (00:45)
[2024-01-20] MEDS: PIPERACILLIN-TAZO 4.5GM 100 ML IV ONE (00:54)
[2024-01-20 01:10] LABS: Urine Bacteria FEW /hpf (None Seen); Urine Blood Negative /uL (Negative); Urine Clarity Clear (Clear); Urine Color Light-Yellow (Yellow); Urine Hyaline Cast FEW /lpf (0 - 2); Urine Protein, UAD 2+ (Negative); Urine Specific Gravity 1.013 (1.001-1.035); Urine Urobilinogen Normal (Negative); Urine WBC 12 /hpf (0 - 3); Urine pH 5.5 (5.0-9.0)
[2024-01-20] MEDS: LORazepam 2MG/ML-1ML VIAL IV ONE (01:15)
[2024-01-20 01:37] LABS: Lactic Acid w/Reflex 2.7 mmol/L (0.4-2.0)
[2024-01-20 01:45] LABS: Base Excess -5.6 mmol/L (-2.0-2.0)
[2024-01-20] MEDS: VANCOMYCIN 1GM/200ML 200 ML IV ONE (06:11)
[2024-01-20] MEDS: IPRATROPIUM BROM 0.5 MG/2.5ML INH SOL NEB SCH (06:14)
[2024-01-20] MEDS: ALBUTEROL SULF 2.5 MG/0.5ML(0.5%) NEB SOLN NEB SCH (06:14)
[2024-01-20] MEDS: BUDESONIDE (INHALATION) 0.5 MG/2 ML NEB NEB SCH (06:15)
[2024-01-20] MEDS ORDERED: VANCOMYCIN PER PHARMACY 0 MG IV SCH (06:45)
[2024-01-20] MEDS ORDERED: HYDROcodone-ACET 5/325MG TAB PO PRN (06:45)
[2024-01-20] MEDS ORDERED: ONDANSETRON HCL 4 MG/2 ML VIAL IV PRN (06:45)
[2024-01-20] MEDS ORDERED: hydrALAZINE HCL 20 MG/ML VL IV PRN (06:45)
[2024-01-20] MEDS ORDERED: DEXTROSE (50%) 50ML SYRG IV PRN (06:45)
[2024-01-20] MEDS ORDERED: NITROGLYCERIN 0.4 MG SL TAB SL PRN (07:15)
[2024-01-20] MEDS ORDERED: MORPHINE SULFATE INJ 2 MG/ml SYRG IV PRN (07:15)
[2024-01-20] MEDS: ACCU-CHEK COMFORT CURVE STRIP VI SCH (08:47)
[2024-01-20] MEDS: InsuLIN REG 1unit/0.01ml Soln (100units/ml) SC SCH (08:48)
[2024-01-20] MEDS: APIXABAN 5 MG TAB PO SCH (09:35)
[2024-01-20] MEDS: FUROSEMIDE 40 MG/4 ML VIAL IV SCH (09:36)
[2024-01-20] MEDS: FAMOTIDINE (10MG/ML) 2ML VL IV SCH (09:36)
[2024-01-20] MEDS: CARVEDILOL 12.5 MG TAB PO SCH (09:36)
[2024-01-20] MEDS ORDERED: ASPirin 81 mg TAB PO SCH (10:00)
[2024-01-20] MEDS ORDERED: AZITHROMYCIN 500MG/ 250ML 250 ML IV SCH (10:00)
[2024-01-20 10:53] LABS: Base Excess -0.3 mmol/L (-2.0-2.0)
[2024-01-20] MEDS: methylPREDNISolone SOD SUCC 40 MG/ML VL IV SCH (12:14)
[2024-01-20] MEDS: SODIUM CHLOR 0.9% PF (SALINE LOCK) 10ML VIAL/SYR IV SCH (12:48)
[2024-01-20] MEDS: CEFEPIME 2GM/50ML NS 50 ML IV SCH (12:48)
[2024-01-20 13:20] LABS: Basophils # (auto) 0 10 ^3/uL (0-0.2); Basophils % (auto) 0.1 % (0.0-2.0); Eosinophils # (auto) 0 10 ^3/uL (0-0.8); Hematocrit 39.3 % (41.0-53.0); Hemoglobin 13.1 g/dL (13.5-17.5); Lymphocytes # (auto) 0.8 10 ^3/uL (0.4-5.4); Lymphocytes % (auto) 7.1 % (10.0-50.0); Mean Corpuscular Hemoglobin 28.8 pg (28.0-32.0); Mean Corpuscular Hgb Conc. 33.3 g/dL (32.0-36.0); Mean Corpuscular Volume 86.4 fL (80.0-100.0); Monocytes # (auto) 0.4 10 ^3/uL (0-1.3); Monocytes % (auto) 3.3 % (0.0-12.0); Neutrophils # (auto) 10.8 10 ^3/uL (1.6-8.6); Neutrophils % (auto) 89.5 % (37.0-80.0); Red Blood Cells 4.55 10^6/uL (4.5-5.90); Red Cell Distribution Width 21.3 % (11.8-14.3)
[2024-01-20 13:46] LABS: Alanine Aminotransferase 22 U/L (7-40); Albumin 4.5 g/dL (3.2-4.8); Alkaline Phosphatase 87 U/L (46-116); Anion Gap 8 (5-15); Aspartate Aminotransferase 12 U/L (13-40); BUN/Creatinine Ratio 19.7 (10.0-20.0); Bilirubin, Total 0.8 mg/dL (0.2-1.0); Blood Urea Nitrogen 15 mg/dL (9-23); Calcium 9.3 mg/dL (8.7-10.4); Carbon Dioxide 24 mmol/L (20-30); Chloride 107 mmol/L (98-107); Potassium 3.3 mmol/L (3.5-5.1); Sodium 139 mmol/L (136-145); Total Protein 7.3 g/dL (5.7-8.2)
[2024-01-20 13:47] LABS: Glucose 171 mg/dL (74-106)
[2024-01-20] MEDS ORDERED: methylPREDNISolone SOD SUCC 40 MG/ML VL IV SCH (14:00)
[2024-01-20 16:46] LABS: Triglycerides 75 mg/dL (< 150)
[2024-01-20 16:47] LABS: LDL Cholesterol 69 mg/dL (< 100)
[2024-01-20 16:48] LABS: Cholesterol 133 mg/dL (< 200); HDL Cholesterol 52 mg/dL (40-59)
[2024-01-20] MEDS: POTASSIUM CHL 20 Meq TABLET PO ONE (17:40)
[2024-01-20] MEDS: ACETAMINOPHEN 325 MG TAB PO PRN (17:46)
[2024-01-20] MEDS: VANCOMYCIN 1GM/200ML 200 ML IV SCH (18:02)
[2024-01-20] MEDS: AMIODARONE HCL 200 MG TAB PO SCH (21:53)
[2024-01-20] MEDS: ATORVASTATIN 20 MG TAB PO SCH (21:54)
[2024-01-21] VITALS (21 sets, daily range): BP systolic 147–162; BP diastolic 79–96; PULSE 74–94; RESP 14–20; TEMP 97.8–99; O2SAT 93–100
[2024-01-21 06:54] LABS: Basophils # (auto) 0 10 ^3/uL (0-0.2); Basophils % (auto) 0.2 % (0.0-2.0); Eosinophils # (auto) 0 10 ^3/uL (0-0.8); Eosinophils % (auto) 0.1 % (0.0-7.0); Hematocrit 39.4 % (41.0-53.0); Hemoglobin 12.7 g/dL (13.5-17.5); Lymphocytes # (auto) 1.9 10 ^3/uL (0.4-5.4); Mean Corpuscular Hemoglobin 28.7 pg (28.0-32.0); Mean Corpuscular Hgb Conc. 32.3 g/dL (32.0-36.0); Mean Corpuscular Volume 88.8 fL (80.0-100.0); Monocytes # (auto) 1.1 10 ^3/uL (0-1.3); Monocytes % (auto) 5.8 % (0.0-12.0); Neutrophils # (auto) 15.7 10 ^3/uL (1.6-8.6); Neutrophils % (auto) 83.9 % (37.0-80.0); Nucleated Red Blood Cells % 0.1 %; Red Blood Cells 4.44 10^6/uL (4.5-5.90); Red Cell Distribution Width 22.1 % (11.8-14.3); White Blood Cell 18.7 10^3/uL (4.4-10.8)
[2024-01-21 07:06] LABS: Alanine Aminotransferase 21 U/L (7-40); Albumin 4.2 g/dL (3.2-4.8); Alkaline Phosphatase 74 U/L (46-116); Anion Gap 6 (5-15); Aspartate Aminotransferase 22 U/L (13-40); BUN/Creatinine Ratio 20.6 (10.0-20.0); Blood Urea Nitrogen 13 mg/dL (9-23); Calcium 9.5 mg/dL (8.7-10.4); Carbon Dioxide 24 mmol/L (20-30); Chloride 108 mmol/L (98-107); Glucose 136 mg/dL (74-106); Potassium 4.2 mmol/L (3.5-5.1); Sodium 138 mmol/L (136-145); Total Protein 6.4 g/dL (5.7-8.2)
[2024-01-21] MEDS ORDERED: ALBU108A5 INH (16:01)
[2024-01-21] MEDS ORDERED: ALB2.5IS NEB (16:01)
[2024-01-21] MEDS ORDERED: FLUT1AER7 INH (16:01)
[2024-01-21 20:26] LABS: Rapid Influenza A Negative (Negative); Rapid Influenza B Negative (Negative)
[2024-01-21 20:27] LABS: COVID19 ANTIGEN SOFIA FIA NEGATIVE (NEGATIVE)
[2024-01-21] MEDS: DOCUSATE SOD 100 MG CAP PO PRN (21:04)
[2024-01-21] MEDS: ATORVASTATIN 20 MG TAB PO SCH (21:05)
[2024-01-22] MEDS ORDERED: VANCOMYCIN 1GM/200ML 200 ML IV SCH (04:00)
[2024-01-22] MEDS ORDERED: CLOPIDOGREL BISULFATE 75 MG TAB PO SCH (10:00)
== END 2024-01-21 22:21 | disposition short-term general hospital (02) | DRG 871 ==
LOC: EDBD 23:37 → ER 23:37 → TELE 01-20 07:12 → TELE-WESTW 01-20 08:58
PROVIDERS: ADMIT Internal Medicine Pulmonary Disease; ATTEND Emergency Medicine
PROC: 5A09357 Assistance with Respiratory Ventilation, Less than 24 Consecutive Hours, Continuous Positive Airway Pressure (ICD-10-PCS; principal; 2024-01-19)
DX: A41.89 Other specified sepsis (principal); I50.31 Acute diastolic (congestive) heart failure; J15.9 Unspecified bacterial pneumonia; J96.01 Acute respiratory failure with hypoxia; J15.69 Pneumonia due to other Gram-negative bacteria; J44.1 Chronic obstructive pulmonary disease with (acute) exacerbation; J44.0 Chronic obstructive pulmonary disease with (acute) lower respiratory infection; N39.0 Urinary tract infection, site not specified; J45.901 Unspecified asthma with (acute) exacerbation; E87.21 Acute metabolic acidosis; I11.0 Hypertensive heart disease with heart failure; E78.5 Hyperlipidemia, unspecified; E66.9 Obesity, unspecified; E11.65 Type 2 diabetes mellitus with hyperglycemia; I48.0 Paroxysmal atrial fibrillation; Z20.822 Contact with and (suspected) exposure to COVID-19; I34.0 Nonrheumatic mitral (valve) insufficiency; E87.6 Hypokalemia; I25.10 Atherosclerotic heart disease of native coronary artery without angina pectoris; Z98.61 Coronary angioplasty status; Z82.49 Family history of ischemic heart disease and other diseases of the circulatory system; Z80.0 Family history of malignant neoplasm of digestive organs; Z83.3 Family history of diabetes mellitus; Z68.31 Body mass index [BMI] 31.0-31.9, adult
CPT/HCPCS: 36415; 36600; 71250; 80053; 80061; 80202; 81001; 82805; 82962; 83036; 83605; 83880; 84484; 85025; 87040; 87086; 87426; 87804; 93005; 93970; 94640; 94660; G0378; J0692; J1815; J2543; J3490

== ENCOUNTER 2025-01-12 01:10 | Inpatient (IN) | payer OTHER ==
[2025-01-12] VITALS (37 sets, daily range): BP systolic 126–192; BP diastolic 61–113; PULSE 81–115; RESP 17–41; TEMP 97–98; O2SAT 92–100
[~2025-01-12] VITALS: Ht 177.8 cm; Wt 76.0 kg
[~2025-01-12 01:10] MED LIST changes: +ALB2.5IS NEB; +ALBU108A5 INH; -CEFD300C2 PO; -DOXY-448 PO; +FLUT1AER7 INH
[2025-01-12] MEDS: FUROSEMIDE 40 MG/4 ML VIAL IV ONE ×2 (01:35→14:33)
[2025-01-12] MEDS: ALBUTEROL SULF 2.5 MG/0.5ML(0.5%) NEB SOLN NEB ONE (01:35)
--- NOTE | 2025-01-12 01:39 | ECG ---
[facility] Test Date: 2025-01-12 Test Time: 01:37:01 Pat Name: PERLA MCGEE Department: ED Room: [address] [place] [address] Gender: M [employer] Records Analyst: USHA : 1950 Requested By: MINISTERIO NEWMAN Order Number: [id number] Reading MD: Artemio Cotto Measurements Intervals [place] Rate: 82 P: 0 LA: 0 QRS: 57 QRSD: 114 T: 233 QT: 416 QTc: 486 Interpretive Statements Normal sinus rhythm, PVCs LVH with secondary repolarization abnormality Baseline wander in lead(s) II,III,aVF Electronically Signed On 01-13-2025 22:50:52 PDT by Artemio Cotto Please click the below link to view image of tracing.
--- NOTE | 2025-01-12 02:13 | DVH ---
CHEST RADIOGRAPH Indication: SHORTNESS OF BREATH Technique: Single frontal view of the chest was obtained COMPARISON: XY CHEST PORTABLE on DOS: 01/19/24, XY CHEST PORTABLE on DOS: 11/17/23, XY CHEST PORTABLE o n DOS: 11/14/23, XY CHEST PORTABLE on DOS: 09/25/23, XY CHEST PORTABLE on DOS: 09/23/23 FINDINGS: Lines and Tubes: None Lungs: Diffuse multifocal bilateral pulmonary airspace disease with consolidative features stable in appearance when compared to the prior exam. Pleura: No effusion. No pneumothorax. Cardiomediastinal contours: Unremarkable Bones: Unremarkable IMPRESSION: 1. Stable appearing diffuse multifocal bilateral pulmonary airspace disease with consolidative featur es.
[2025-01-12] MEDS: hydrALAZINE HCL 20 MG/ML VL IV ONE (02:30)
[2025-01-12 02:31] LABS: Basophils # (auto) 0.1 10 ^3/uL (0-0.2); Basophils % (auto) 0.7 % (0.0-2.0); Eosinophils # (auto) 0.4 10 ^3/uL (0-0.8); Eosinophils % (auto) 2.1 % (0.0-7.0); Hematocrit 46.8 % (41.0-53.0); Hemoglobin 15.7 g/dL (13.5-17.5); Lymphocytes # (auto) 2.3 10 ^3/uL (0.4-5.4); Lymphocytes % (auto) 11.6 % (10.0-50.0); Mean Corpuscular Hemoglobin 31.8 pg (28.0-32.0); Mean Corpuscular Hgb Conc. 33.5 g/dL (32.0-36.0); Mean Corpuscular Volume 94.9 fL (80.0-100.0); Monocytes # (auto) 0.9 10 ^3/uL (0-1.3); Monocytes % (auto) 4.5 % (0.0-12.0); Neutrophils % (auto) 81.1 % (37.0-80.0); Platelet Count (auto) 318 10^3/uL (140-450); Red Blood Cells 4.94 10^6/uL (4.5-5.90); Red Cell Distribution Width 14.6 % (11.8-14.3); White Blood Cell 19.8 10^3/uL (4.4-10.8)
[2025-01-12 02:43] LABS: Anion Gap 13 (5-15); Carbon Dioxide 21 mmol/L (20-31); Chloride 106 mmol/L (98-107); Potassium 4.1 mmol/L (3.5-5.1); Sodium 140 mmol/L (136-145)
[2025-01-12 02:44] LABS: Calcium 9.5 mg/dL (8.7-10.4)
[2025-01-12] MEDS: LORazepam 2MG/ML-1ML VIAL IV ONE (02:46)
[2025-01-12 02:49] LABS: INR 1.06 (0.9-1.15); Prothrombin Time 11.2 sec (9.3-11.8)
[2025-01-12 02:49] LABS: BUN/Creatinine Ratio 20.4 (10.0-20.0); Blood Urea Nitrogen 19 mg/dL (9-23)
[2025-01-12 02:50] LABS: Glucose 305 mg/dL (74-106)
--- NOTE | 2025-01-12 02:56 | ED.PDOC ---
HPI Comments 74-year-old male is brought in by ambulance for complaint of shortness of breath. Patient has a history of AFib, asthma, CHF, COPD, DM, HLD, HTN, PE, and medication compliancy. Symptom began around 2330, last night. Initial SpO2 of 83% on room air. Patient was placed on CPAP, with notable improvement. No chest pain, cough, congestion, fever, chills, or further associated symptoms or modifying factors endorsed at this time. Chief Complaint: Shortness of Breath Time Seen by MD: 01:14 Primary Care Provider: GARLAND Reviewed Notes: Nurses Notes, Test Data Developer Notes, Medications, Allergies Allergies: Coded Allergies: Metoprolol (Verified Allergy, Severe, RASH, 09/28/19) Home Meds Reported Medications Albuterol Sulfate (Ventolin) 2.5 Mg/3 Ml Nb, NEB UD 01/21/24 Fluticasone-Salmeterol (Wixela Inhub 500-50 Mcg/Dose) 1 Aer Aer, INH UD 01/21/24 Albuterol Sulfate (Albuterol Sulfate Hfa) 108 Mcg/Act Aer, INH UD 01/21/24 Furosemide (Furosemide) 40 Mg Tab, 1 TAB PO DAILY 11/16/23 Trazodone Hcl (Trazodone Hcl) 50 Mg Tab, 1 TAB PO HS 11/16/23 Albuterol Sulfate (Albuterol Sulfate) 0.083 % Neb, NEB UD 09/24/23 Amiodarone Hcl (Amiodarone Hcl) 200 Mg Tab, 1 TAB PO DAILY 09/24/23 Diltiazem Hcl (DILTIAZEM HCL ER) 240 Mg Cap, 1 CAP PO DAILY 09/24/23 Carvedilol (Carvedilol) 12.5 Mg Tab, 1 TAB PO BID 09/24/23 Montelukast Sodium (Singulair) 10 Mg Tab, 1 TAB PO DAILY 09/24/23 Metformin HCl (Metformin Hydrochloride) 1,000 Mg Tab, 1 TAB PO BID 09/24/23 Terazosin Hcl (Terazosin Hcl) 1 Mg Cap, 1 TAB PO DAILY 09/29/19 Apixaban Base (ELIQUIS) 5 Mg Tab, 1 TAB PO BID 09/29/19 Lisinopril (Lisinopril) 40 Mg Tab, 1 TAB PO DAILY 09/29/19 Atorvastatin Calcium (Lipitor) 40 Mg Tab, 1 TAB PO QPM 09/29/19 Information Source: Patient, Emergency Med Personnel Mode of Arrival: EMS Severity: Moderate Timing: Hours Duration: Since onset Prehospital treatment: None Review of Systems: REVIEW OF SYSTEMS: No fever, no chills, or fatigue HEENT: No sore throat, no earache, no congestion, no neck pain. Cardiac: No chest pain. No palpitations. Lungs: Shortness of breath, no cough. GI: No nausea, no vomiting, no diarrhea, no constipation, no abdominal pain : No dysuria, frequency, or urgency. No hematuria. Musculoskeletal: No joint pain , no joint swelling, no extremity edema. Skin: No rash, no itching. Neuro: No headache, no dizziness, no weakness Vital Signs Vital Signs Date Time Temp Pulse Resp B/P (MAP) Pulse Ox O2 Delivery O2 Flow Rate FiO2 01/12/25 05:08 82 01/12/25 05:00 26 183/108 (133) 94 01/12/25 04:25 60.0 50 01/12/25 02:30 Facial BiPAP Mask Physical Exam General: Awake, alert and oriented. No acute distress. Skin: Skin in warm, dry and intact. Appropriate color for ethnicity. HEENT: The head is normocephalic and atraumatic. Conjunctivae are clear without exudates or hemorrhage. Sclera is non-icteric. EOM are intact. No signs of nystagmus. Eyelids are normal in appearance without swelling or lesions. Oral mucosa is pink and moist Neck: The neck is supple with normal range of motion. No JVD. Cardiac: Heart rate and rhythm are normal. No murmurs, gallops, or rubs are auscultated. Respiratory: Rales in bilateral bases. Otherwise, no signs of respiratory distress. Lung sounds are clear in all lobes bilaterally without rhonchi or wheezes. Abdominal: Abdomen is soft, non-tender without distention, guarding or rigidity. Bowel sounds are present and normoactive in all four quadrants. Extremities: Upper and lower extremities are atraumatic in appearance without deformity or edema. Neurological: The patient is awake, alert and oriented to person, place, and time with normal speech. Speech is clear. There is no facial asymmetry. Psychiatric: Appropriate mood and affect. Good judgement and insight. Past Medical History PAST MEDICAL HISTORY: AFIB, Asthma, CHF, COPD, DM, High Lipids, HTN, PE Surgical History: Appendectomy Family History Family History: Reviewed,noncontributory to illness Social History Smoker: Non-Smoker Alcohol: Denies ETOH Use Drugs: Denies Drug Use Lives In: Home EKG EKG : Pulse Rate (adult): 82 [place]: Normal Cardiac Rhythm: Afib Block: None Hypertrophy: LVH ST: Normal Was a procedure done? Was a procedure done?: No CP Differential Dx Differential Diagnosis: A-fib Other Differential Diagnosis Differential diagnoses considered includebut arenot limited to acute Bronchitis, Asthma, COPD, Pneumothorax, PE, CHF, Pulmonary HTN, Anemia, CO Poisoning, Methemoglobinemia, Hyperventilation, Metabolic Acidosis, Pulmonary Edema, Pneumonia, ACS, Pericardial Tamponade, Anxiety, other Differential Diagnosis: N/A X-Ray, Labs, Meds, VS Vital Signs Date Time Temp Pulse Resp B/P (MAP) Pulse Ox O2 Delivery O2 Flow Rate FiO2 01/12/25 05:08 82 01/12/25 05:00 108 26 183/108 (133) 94 01/12/25 04:25 107 36 94 60.0 50 01/12/25 04:00 95 01/12/25 04:00 100 37 182/110 (134) 92 01/12/25 03:00 85 35 171/98 (122) 95 01/12/25 02:30 185/114 01/12/25 02:30 81 171/101 96 Facial BiPAP Mask 50 01/12/25 02:00 97 44 183/112 (135) 96 01/12/25 01:37 82 01/12/25 01:36 43 95 Bi-Pap+ 50 50 01/12/25 01:35 178/119 01/12/25 01:14 86 01/12/25 01:14 86 41 95 Bi-Pap+ 50 50 01/12/25 01:14 86 41 172/107 (128) 95 01/12/25 01:13 95 36 194/132 (152) 92 01/12/25 01:10 84 172/107 Facial BiPAP Mask 50 Lab Test 01/12/25 02:51 01/12/25 02:30 01/12/25 02:08 01/12/25 02:03 Range/Units Troponin I High Sensitivity 31 20 </=54 ng/L Influenza Type A Antigen Negative Negative Influenza Type B Antigen Negative Negative SARS-CoV-2 Antigen (Rapid) Negative NEGATIVE Prothrombin Time 11.2 9.3-11.8 sec Prothrombin Time INR 1.06 0.9-1.15 D-Dimer, Quantitative 0.61 H 0.0-0.49 mg/L FEU White Blood Count 19.8 H 4.4-10.8 10^3/uL Red Blood Count 4.94 4.5-5.90 10^6/uL Hemoglobin 15.7 13.5-17.5 g/dL Hematocrit 46.8 41.0-53.0 % Mean Corpuscular Volume 94.9 80.0-100.0 fL Mean Corpuscular Hemoglobin 31.8 28.0-32.0 pg Mean Corpuscular Hemoglobin Concent 33.5 32.0-36.0 g/dL Red Cell Distribution Width 14.6 H 11.8-14.3 % Platelet Count 318 140-450 10^3/uL Mean Platelet Volume 7.6 6.9-10.8 fL Neutrophils (%) (Auto) 81.1 H 37.0-80.0 % Lymphocytes (%) (Auto) 11.6 10.0-50.0 % Monocytes (%) (Auto) 4.5 0.0-12.0 % Eosinophils (%) (Auto) 2.1 0.0-7.0 % Basophils (%) (Auto) 0.7 0.0-2.0 % Neutrophils # (Auto) 16.0 H 1.6-8.6 10 ^3/uL Lymphocytes # (Auto) 2.3 0.4-5.4 10 ^3/uL Monocytes # (Auto) 0.9 0-1.3 10 ^3/uL Eosinophils # (Auto) 0.4 0-0.8 10 ^3/uL Basophils # (Auto) 0.1 0-0.2 10 ^3/uL Nucleated Red Blood Cells 0.0 % Sodium Level 140 136-145 mmol/L Potassium Level 4.1 3.5-5.1 mmol/L Chloride Level 106 98-107 mmol/L Carbon Dioxide Level 21 20-31 mmol/L Anion Gap 13 5-15 Blood Urea Nitrogen 19 9-23 mg/dL Creatinine 0.93 0.700-1.30 mg/dL Glomerular Filtration Rate Calc 87 >90 mL/min BUN/Creatinine Ratio 20.4 H 10.0-20.0 Serum Glucose 305 H 74-106 mg/dL Calcium Level 9.5 8.7-10.4 mg/dL B-Type Natriuretic Peptide 570.05 0-100 pg/mL Plasma/Serum Blood Alcohol < 3.0 <10 mg/dL Current Medications Medications (Trade) Dose Ordered Sig/Mckayla Route Start Time Stop Time Status Last Admin Albuterol (Ventolin Medneb) 2.5 mg ONCE ONCE NEB 01/12/25 01:15 01/12/25 01:16 DC 01/12/25 01:35 Furosemide (Lasix Injection) 40 mg ONCE ONCE IV 01/12/25 01:15 01/12/25 01:16 DC 01/12/25 01:35 Hydralazine HCl (Apresoline Injection) 10 mg ONCE ONCE IV 01/12/25 02:30 01/12/25 02:31 DC 01/12/25 02:30 Lorazepam (Ativan Inj) 1 mg ONCE ONCE IV 01/12/25 02:45 01/12/25 02:46 DC 01/12/25 02:46 Piperacillin Sod/ Tazobactam Sod 100 ml @ 100 mls/hr ONCE ONCE IV 01/12/25 03:00 01/12/25 03:59 DC 01/12/25 03:28 [place] [id number] Ph: [phone] DIAGNOSTIC IMAGING Diagnostic Imaging Report : [id number] Signed PATIENT: PERLA MCGEE ACCT: [id number] UNIT: [id number] : 1950 LOC: ER ROOM / BED: / AGE / SEX: 74 / M ADM STATUS: REG ER SERVICE 0114 ORDERING PHYSICIAN: MINISTERIO NEWMAN MD PROCEDURE(s): CXR1 - CHEST XRAY 1 VIEW REASON: SHORTNESS OF BREATH ORDER NUMBER(s): [id number], ACCESSION NUMBER(s): [id number] CHEST RADIOGRAPH Indication: SHORTNESS OF BREATH Technique: Single frontal view of the chest was obtained COMPARISON: XY CHEST PORTABLE on DOS: 01/19/24, XY CHEST PORTABLE on DOS: 11/17/23, XY CHEST PORTABLE on DOS: 11/14/23, XY CHEST PORTABLE on DOS: 09/25/23, XY CHEST PORTABLE on DOS: 09/23/23 FINDINGS: Lines and Tubes: None Lungs: Diffuse multifocal bilateral pulmonary airspace disease with consolidative features stable in appearance when compared to the prior exam. Pleura: No effusion. No pneumothorax. Cardiomediastinal contours: Unremarkable Bones: Unremarkable IMPRESSION: 1. Stable appearing diffuse multifocal bilateral pulmonary airspace disease with consolidative features. ATED BY: GAVIN JEROME MD DICTATED DATE/TIME: 01/12/25210 SIGNED BY: GAVIN JEROME MD SIGNED DATE/TIME: 01/12/25210 CC: Time of 1ST Reevaluation: 01:44 Reevaluation 1ST: Unchanged Patient Education/Counseling: Other (Need for admission) Family Education/Counseling: No Family Present SEPSIS Sepsis Screen Date sepsis recognized/suspect: Jan 12, 2025 Time Sepsis recognized/suspect: 129 Recent Procedure: No On Antibiotic Therapy: No Respiratory Rate >20: No Heart Rate >90: No Temp<36 C (96.8 F) or >38.3 C: No SBP <90 or MAP <65 mmHG: No New Acute Mental Status Change: No Is the patient on CPAP, BIPAP,: No Physician Orders Chest Xray 1 View (01/12/25 01:14) Abg W/ Co-Ox (01/12/25 01:14) Troponin-I Hs (01/12/25 04:14) BIPAP (01/12/25 01:05) Blood Culture (01/12/25 02:03) Oxygen By High-Flow (01/12/25 04:39) Lactic Acid W/ Reflex Order (01/12/25 04:55) Metoprolol Inj (Lopressor) (01/12/25 05:15) Dextrose 50% Syringe (01/12/25 05:15) Dextrose 50% Syringe (01/12/25 05:15) Glucose Blood (Accu-Chek Comfort Curve T (01/12/25 21:15) Vital Signs Date Time Temp Pulse Resp B/P (MAP) Pulse Ox O2 Delivery O2 Flow Rate FiO2 01/12/25 05:08 82 01/12/25 05:00 108 26 183/108 (133) 94 01/12/25 04:25 107 36 94 60.0 50 01/12/25 04:00 95 01/12/25 04:00 100 37 182/110 (134) 92 01/12/25 03:00 85 35 171/98 (122) 95 01/12/25 02:30 185/114 01/12/25 02:30 81 171/101 96 Facial BiPAP Mask 50 01/12/25 02:00 97 44 183/112 (135) 96 01/12/25 01:37 82 01/12/25 01:36 43 95 Bi-Pap+ 50 50 01/12/25 01:35 178/119 01/12/25 01:14 86 01/12/25 01:14 86 41 95 Bi-Pap+ 50 50 01/12/25 01:14 86 41 172/107 (128) 95 01/12/25 01:13 95 36 194/132 (152) 92 01/12/25 01:10 84 172/107 Facial BiPAP Mask 50 Laboratory Tests Test 01/12/25 02:03 White Blood Count 19.8 10^3/uL (4.4-10.8) H Medications Medications Dose Ordered Sig/Mckayla Route Start Time Stop Time Status Last Admin Dose Admin Albuterol 2.5 mg ONCE ONCE NEB 01/12/25 01:15 01/12/25 01:16 DC 01/12/25 01:35 Furosemide 40 mg ONCE ONCE IV 01/12/25 01:15 01/12/25 01:16 DC 01/12/25 01:35 Hydralazine HCl 10 mg ONCE ONCE IV 01/12/25 02:30 01/12/25 02:31 DC 01/12/25 02:30 Lorazepam 1 mg ONCE ONCE IV 01/12/25 02:45 01/12/25 02:46 DC 01/12/25 02:46 Piperacillin Sod/ Tazobactam Sod 100 ml @ 100 mls/hr ONCE ONCE IV 01/12/25 03:00 01/12/25 03:59 DC 01/12/25 03:28 Departure 1 Departure Time of Disposition: 02:56 Impression: Primary Impression: Hypoxic respiratory failure Additional Impressions: CHF exacerbation Hyperglycemia Disposition: 09 ADMITTED INPATIENT Condition: Stable Comments Case # [id number] Dr. Huitron from [place] authorizes admission at this facility. Patient brought in to the ED via EMS on CPAP for respiratory distress. Patient was changed over to BiPAP on arrival to the ED. Chest x-ray shows diffuse multifocal bilateral pulmonary airspace disease with consolidative features Antibiotics, Lasix initiated in the ED. Patient is stabilized in the ED. Patient admitted to hospitalist service for further treatment, evaluation and mo nitoring. Patient repeatedly removing BiPAP from face. Patient changed to high-flow nasal cannula. Extensive evaluation was performed in attempt to identify or rule out: (See differential diagnosis section) The following tests were ordered, and results were reviewed by me and discussed with patient: (See diagnostic results section) The following test were independently interpreted by me: EKG I reviewed and agreed with the following test results read by other providers: Chest x-ray I reviewed the following notes from the pt's past medical encounters: September 23, 2023, November 15, 2023, and January 20, 2024 encounters for shortness of breath and acute respiratory failures, respectively Additional information was gathered from interviewing the following independent historians: EMS personnel Discussion of management or test interpretation with external physician/other qualified health emergency care tech: Dr. Huitron Addressed an acute or chronic illness that poses a threat to life or bodily function: Hypoxic respiratory failure Decision regarding hospitalization or escalation of hospital level of care: Risk and benefits of admission for further treatment of patient's condition was considered. Due to patient's current clinical condition, high risk of decline and poor outcome if discharged and need for further inpatient management and monitoring, patient will be admitted to the hospital. Drug therapy requiring intensive monitoring for toxicity: IV Lasix, IV labetalol, IV metoprolol, Parenteral controlled substances: IV Ativan Decision regarding elective major surgery with identified patient or procedure risk factors: N/A Decision regarding emergency major surgery: N/A Decision not to resuscitate or to de-escalate care because of poor prognosis: N/A Diagnosis or treatment significantly limited by social determinants of health: N/A Critical Care Note Critical Care Time?: Yes (45 min-critical care time only) Critical care comment: Due to a high probability of clinically significant, life threatening de terioration, the patient required my highest level of preparedness to intervene emergently and I personally spent this critical care time directly and personally managing the patient. This critical care time included obtaining a history; examining the patient; pulse oximetry; ordering and review of studies; arranging urgent treatment with development of a management plan; evaluation of patient's response to treatment; frequent reassessment; and, discussions with other providers. This critical care time was performed to assess and manage the high probability of imminent, life-threatening deterioration that could result in multi-organ failure. It was exclusive of separately billable procedures and treating other patients and teaching time. Please see my other sections and the rest of the note for further information on patient assessment and treatment. Stability Stability form required: No Heart Score Heart Score: Heart Score Response (Comments) Value History Moderate Suspicious 1 EKG Repolarization Disturb 1 Age >65 2 Risk Factors >3 or Hx ASHD 2 Troponin Normal limit 0 Total 6 I personally scribed for MINISTERIO NEWMAN MD ([email or web address]) on 01/12/25 at 05:08. Electronically submitted by Bruce Moreno [email or web address]). MINISTERIO NEWMAN MD Jan 12, 2025 02:56
[2025-01-12] MEDS: PIPERACILLIN-TAZOB 3.375GM 100 ML IV ONE ×2 (03:28→14:33)
[2025-01-12 03:45] LABS: COVID19 ANTIGEN SOFIA FIA NEGATIVE (NEGATIVE); Rapid Influenza A Negative (Negative); Rapid Influenza B Negative (Negative)
[2025-01-12 04:51] LABS: Blood Alcohol < 3.0 mg/dL (<10)
[2025-01-12] MEDS: InsuLIN REG 1unit/0.01ml Soln (100units/ml) IV ONE (05:11)
[2025-01-12] MEDS ORDERED: DEXTROSE (50%) 50ML SYRG IV PRN ×3 (05:15→05:30)
[2025-01-12] MEDS: ACCU-CHEK COMFORT CURVE STRIP VI STA (05:15)
[2025-01-12] MEDS: METOPROLOL TARTRATE 1MG/1ML-5ML VIAL IV ONE (05:17)
[2025-01-12] MEDS ORDERED: ALBUTEROL SULF 2.5 MG/0.5ML(0.5%) NEB SOLN NEB PRN ×2 (05:30)
[2025-01-12] MEDS ORDERED: MORPHINE SULFATE INJ 2 MG/ml SYRG IV PRN (05:30)
[2025-01-12] MEDS ORDERED: NITROGLYCERIN 0.4 MG SL TAB SL PRN (05:30)
[2025-01-12] MEDS ORDERED: ONDANSETRON HCL 4 MG/2 ML VIAL IV PRN (05:30)
[2025-01-12] MEDS ORDERED: ACETAMINOPHEN 325 MG TAB PO PRN (05:30)
[2025-01-12] MEDS ORDERED: hydrALAZINE HCL 20 MG/ML VL IV PRN (05:30)
[2025-01-12] MEDS: FUROSEMIDE 20 MG/2 ML VIAL IV SCH (06:04)
[2025-01-12] MEDS: InsuLIN REG 1unit/0.01ml Soln (100units/ml) SC SCH (06:21)
[2025-01-12] MEDS: ACCU-CHEK COMFORT CURVE STRIP VI SCH (06:23)
--- NOTE | 2025-01-12 06:40 | ECG ---
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
[2025-01-12 06:50] LABS: Lactic Acid w/Reflex 2.9 mmol/L (0.4-2.0)
[2025-01-12] MEDS: cefTRIAXone 1GM/50ML D5W 50 ML IV SCH (08:50)
[2025-01-12] MEDS: SODIUM CHLORIDE 0.9% 250 ML IV ONE (09:15)
[2025-01-12] MEDS ORDERED: SODIUM CHLORIDE 0.9% 250 ML IV ONE (09:15)
--- NOTE | 2025-01-12 09:24 | DVHCONRES ---
MEME APARICIO RESIDENT 01/12/25 0924: Date Seen: Jan 12, 2025 Resident Creating Document: MEME APARICIO RESIDENT Reason for Consultation Elevated troponin History of Present Illness Patient is a 74-year-old male with past medical history of atrial fibrillation, asthma, COPD, CAD s/p PCI x1 stent in 1994 at [facility], CHF, DVT and PE, type 2 diabetes, dyslipidemia, hypertension, s/p intubation in 2019, who comes in due to dyspnea. According to the patient, yesterday on 01/11/2025 he woke up around 11:30 p.m. with difficulty breathing, felt like he could not catch his breath and subsequently ended up calling the paramedics around midnight. Patient notes he had similar symptoms multiple times last year, notes 5 hospitalizations in the last 12 months for pneumonia and COPD exacerbation. Per patient, at baseline his dyspnea is Functional Class I which has now progressed to Functional Class III. Denies any sick contacts or recent travel. At baseline patient is able to ambulate independently without any wheelchair walker or cane. On review of systems patient is complaining of fatigue, shortness of breath and palpitations. Chest x-ray showed stable appearing diffuse multifocal bilateral pulmonary airspace disease with consolidative features. Past Medical History atrial fibrillation, asthma, COPD, CHF, DVT and PE, type 2 diabetes, dyslipidemia, hypertension, s/p intubation in 2019 Past Surgical History Appendectomy, s/p PCI in 1994 at [facility], right hip ORIF, tonsillectomy Family History: Cardiovascular disease G8 BROTHER, Onset:40's - 50 Colon cancer G8 MOTHER, Onset:50's - 60 Diabetes mellitus G8 FATHER, Onset:60 years & older Social History Smoking: Quit in 1969, prior to that smoked for 2 years Alcohol: Denies Drugs: Uses edible marijuana every other day, remote history of methamphetamine abuse Allergies: Coded Allergies: Metoprolol (Verified Allergy, Severe, RASH, 09/28/19) Home Meds Reported Medications Albuterol Sulfate (Ventolin) 2.5 Mg/3 Ml Nb, NEB UD 01/21/24 Fluticasone-Salmeterol (Wixela Inhub 500-50 Mcg/Dose) 1 Aer Aer, INH UD 01/21/24 Albuterol Sulfate (Albuterol Sulfate Hfa) 108 Mcg/Act Aer, INH UD 01/21/24 Furosemide (Furosemide) 40 Mg Tab, 1 TAB PO DAILY 11/16/23 Trazodone Hcl (Trazodone Hcl) 50 Mg Tab, 1 TAB PO HS 11/16/23 Albuterol Sulfate (Albuterol Sulfate) 0.083 % Neb, NEB UD 09/24/23 Amiodarone Hcl (Amiodarone Hcl) 200 Mg Tab, 1 TAB PO DAILY 09/24/23 Diltiazem Hcl (DILTIAZEM HCL ER) 240 Mg Cap, 1 CAP PO DAILY 09/24/23 Carvedilol (Carvedilol) 12.5 Mg Tab, 1 TAB PO BID 09/24/23 Montelukast Sodium (Singulair) 10 Mg Tab, 1 TAB PO DAILY 09/24/23 Metformin HCl (Metformin Hydrochloride) 1,000 Mg Tab, 1 TAB PO BID 09/24/23 Terazosin Hcl (Terazosin Hcl) 1 Mg Cap, 1 TAB PO DAILY 09/29/19 Apixaban Base (ELIQUIS) 5 Mg Tab, 1 TAB PO BID 09/29/19 Lisinopril (Lisinopril) 40 Mg Tab, 1 TAB PO DAILY 09/29/19 Atorvastatin Calcium (Lipitor) 40 Mg Tab, 1 TAB PO QPM 09/29/19 Current Medications Current Medications Medications (Trade) Dose Ordered Sig/Mckayla Route PRN Reason Start Time Stop Time Status Last Admin Dextrose 50 ml PRN PRN IV Blood Sugar LESS THAN 60 01/12/25 05:15 Dextrose 50 ml PRN PRN IV Blood Sugar LESS THAN 60 01/12/25 05:15 Diagnostic Test (Pha) (Accu-Chek Comfort Curve T) 1 strip ONCE STAT 01/12/25 05:07 01/12/25 05:08 DC 01/12/25 05:15 Hydralazine HCl (Apresoline Injection) 10 mg Q6HP PRN IV SBP>150 01/12/25 05:30 Furosemide (Lasix Injection) 20 mg BIDD IV 01/12/25 06:00 01/12/25 06:04 Atorvastatin Calcium (Lipitor) 40 mg HS PO 01/12/25 22:00 Albuterol (Ventolin Medneb) 2.5 mg Q6HPRN PRN NEB SHORTNESS OF BREATH 01/12/25 05:30 Amiodarone HCl (Cordarone Tablet) 200 mg DAILY PO 01/12/25 10:00 Carvedilol (Coreg Tablet) 12.5 mg Q12HR PO 01/12/25 10:00 Diltiazem HCl (Cardizem ER Capsule) 240 mg DAILY PO 01/12/25 10:00 Azithromycin 250 ml @ 125 mls/hr DAILY IV 01/12/25 10:00 Ceftriaxone Sodium 50 ml @ 100 mls/hr DAILY@09 IV 01/12/25 09:00 01/12/25 08:50 Albuterol (Ventolin Medneb) 2.5 mg Q6HPRN PRN NEB SHORTNESS OF BREATH 01/12/25 05:30 Ipratropium [place] (Atrovent Medneb) 0.5 mg Q6HPRN PRN NEB SHORTNESS OF BREATH 01/12/25 05:30 Diagnostic Test (Pha) (Accu-Chek Comfort Curve T) 1 strip ACHS 01/12/25 07:00 01/12/25 06:23 Insulin Human Regular (InsuLIN R) ACHS SC 01/12/25 07:00 01/12/25 06:21 Dextrose 50 ml UD PRN IV Blood Sugar LESS THAN 60 01/12/25 05:30 Acetaminophen/ Hydrocodone Bitart ([place] 5/325MG Tab) 1 tab Q4HP PRN PO MODERATE PAIN (4-6 PAIN SCALE) 01/12/25 05:30 Ondansetron HCl (Zofran) 4 mg Q4HP PRN IV NAUSEA / VOMITING 01/12/25 05:30 Acetaminophen (Tylenol Tablet) 650 mg Q6HP PRN PO PAIN SCALE 1-3 OR TEMP>100.4 01/12/25 05:30 Nitroglycerin (Ntrostat Sublingual) 0.4 mg Q5MINP PRN SL FOR CHEST PAIN 01/12/25 05:30 Morphine Sulfate 2 mg Q30M PRN IV FOR CHEST PAIN 01/12/25 05:30 Apixaban (Eliquis) 5 mg BID PO 01/12/25 10:00 Review of Systems Patient seen and examined at bedside. Patient is alert and oriented to time, place person and responding to all questions. General: Fatigue Eyes: No Pain, No Vision change, No Conjunctivae inflammation, No Eyelid inflammation, No Other, No Redness ENT: No Ear pain, No Ear discharge, No Nose pain, No Nose discharge, No Nose congestion, No Mouth pain, No Mouth swelling, No Throat pain, No Throat swelling, No Other Cardiovascular: No Chest Pain, Palpitations, No Orthopnea, No Paroxysmal No Dyspnea, No Edema, No Lt Headedness, No Other Respiratory: No Cough, No Dry, Shortness of breath, SOB with exertion, No Wheezing, No Hemoptysis, No Pleuritic Pain, No Sputum, No Other Gastrointestinal: No Nausea, No Vomiting, No Abdominal Pain, No Diarrhea, No Constipation, No Melena, No Hematochezia, No Other Genitourinary: No Dysuria, No Frequency, No Incontinence, No Hematuria, No Retention, No Other Musculoskeletal: No other, No neck pain, No shoulder pain, No arm pain, No back pain, No hand pain, No leg pain, No foot pain Skin: No Rash, No Lesions, No Jaundice, No Bruising, No Other Vital Signs Vital Signs Date Time Temp Pulse Resp B/P (MAP) Pulse Ox O2 Delivery O2 Flow Rate FiO2 01/12/25 07:00 99 24 171/100 (123) 96 01/12/25 06:00 Hi-Flow NC 12 N/A 01/12/25 06:00 97.0 97.0 Physical Exam General Appearance: Cooperative. Well developed. Well nourished. In moderate distress, sweating noted. Dry mucous membranes Head Exam: Normal inspection Neck Exam: Normal inspection. Non-tender. Normal alignment Pulmonary/Respiratory: Chest non-tender. Decreased bilateral breath sounds, trace crackles, no wheezing. Cardiovascular/Chest: Regular rate and rhythm. No murmurs. JVD. Peripheral Pulses: 2+ Radial (R). 2+ Radial (L). 2+ Pedal (R). 2+ Pedal (L) Abdominal Exam: Normal bowel sounds. Soft. normal abdomen, no visible veins, Nontender. No hepatospenomegaly. No masses Ankle Exam: Negative ankle edema Lower extremities: Negative lower extremity edema Neuro/Mental Status: A&O x4. Coherent. Trace tremor noted in right hand Thoughts/Psych: Normal thought pattern. Appropriate mood and affect. Good judgement and insight Skin Exam: Normal inspection. Normal color. Warm. Dry Labs/Diagnostic Data Labs Test 01/12/25 07:19 01/12/25 06:18 01/12/25 02:30 01/12/25 02:08 Range/Units Lactic Acid Level 3.4 *H 0.4-2.0 mmol/L Troponin I High Sensitivity 122 *H </=54 ng/L POC Glucose 297 H 70-106 mg/dl Influenza Type A Antigen Negative Negative Influenza Type B Antigen Negative Negative SARS-CoV-2 Antigen (Rapid) Negative NEGATIVE Prothrombin Time 11.2 9.3-11.8 sec Prothrombin Time INR 1.06 0.9-1.15 D-Dimer, Quantitative 0.61 H 0.0-0.49 mg/L FEU Test 01/12/25 02:03 Range/Units White Blood Count 19.8 H 4.4-10.8 10^3/uL Red Blood Count 4.94 4.5-5.90 10^6/uL Hemoglobin 15.7 13.5-17.5 g/dL Hematocrit 46.8 41.0-53.0 % Mean Corpuscular Volume 94.9 80.0-100.0 fL Mean Corpuscular Hemoglobin 31.8 28.0-32.0 pg Mean Corpuscular Hemoglobin Concent 33.5 32.0-36.0 g/dL Red Cell Distribution Width 14.6 H 11.8-14.3 % Platelet Count 318 140-450 10^3/uL Mean Platelet Volume 7.6 6.9-10.8 fL Neutrophils (%) (Auto) 81.1 H 37.0-80.0 % Lymphocytes (%) (Auto) 11.6 10.0-50.0 % Monocytes (%) (Auto) 4.5 0.0-12.0 % Eosinophils (%) (Auto) 2.1 0.0-7.0 % Basophils (%) (Auto) 0.7 0.0-2.0 % Neutrophils # (Auto) 16.0 H 1.6-8.6 10 ^3/uL Lymphocytes # (Auto) 2.3 0.4-5.4 10 ^3/uL Monocytes # (Auto) 0.9 0-1.3 10 ^3/uL Eosinophils # (Auto) 0.4 0-0.8 10 ^3/uL Basophils # (Auto) 0.1 0-0.2 10 ^3/uL Nucleated Red Blood Cells 0.0 % Sodium Level 140 136-145 mmol/L Potassium Level 4.1 3.5-5.1 mmol/L Chloride Level 106 98-107 mmol/L Carbon Dioxide Level 21 20-31 mmol/L Anion Gap 13 5-15 Blood Urea Nitrogen 19 9-23 mg/dL Creatinine 0.93 0.700-1.30 mg/dL Glomerular Filtration Rate Calc 87 >90 mL/min BUN/Creatinine Ratio 20.4 H 10.0-20.0 Serum Glucose 305 H 74-106 mg/dL Calcium Level 9.5 8.7-10.4 mg/dL B-Type Natriuretic Peptide 570.05 0-100 pg/mL Plasma/Serum Blood Alcohol < 3.0 <10 mg/dL Assessment Acute hypoxic respiratory failure COPD exacerbation Acute on chronic congestive heart failure, systolic versus diastolic Sepsis possibly secondary to pneumonia Lactic acidosis due to above NSTEMI type 2 due to above Atrial fibrillation with secondary hypercoagulable state, on Eliquis 5 mg b.i.d. Severe mitral regurgitation Essential hypertension Prolonged QTC 546 Plan: Cautious IV hydration Hold IV furosemide, continue home dose po furosemide Continue Eliquis Continue amiodarone Antibiotics Patient will benefit from DAMIEN once stabilized given severe mitral regurgitation noted on echocardiogram from September 2023 Avoid QT prolonging drugs Rest of the plan as per course of hospitalization Thank you so much for the opportunity to consult on your patient. Cardiology team will follow the patient. In case of any questions or concerns please feel free to reach out. Plan discussed with Dr. Harris Plan discussed with: Patient, Other (RN) Visit Coding Cardiology RES Date of Service: Jan 12, 2025 Billing Provider: GAVIN HARRIS MD Cardiology Common Codes: [id number] INP/OBS CARE (High) GAVIN HARRIS MD 01/13/25 0844: Date Seen: Jan 12, 2025 Family History: Cardiovascular disease G8 BROTHER, Onset:40's - 50 Colon cancer G8 MOTHER, Onset:50's - 60 Diabetes mellitus G8 FATHER, Onset:60 years & older Allergies: Coded Allergies: Metoprolol (Verified Allergy, Severe, RASH, 09/28/19) Home Meds Reported Medications Albuterol Sulfate (Ventolin) 2.5 Mg/3 Ml Nb, NEB UD 01/21/24 Fluticasone-Salmeterol (Wixela Inhub 500-50 Mcg/Dose) 1 Aer Aer, INH UD 01/21/24 Albuterol Sulfate (Albuterol Sulfate Hfa) 108 Mcg/Act Aer, INH UD 01/21/24 Furosemide (Furosemide) 40 Mg Tab, 1 TAB PO DAILY 11/16/23 Trazodone Hcl (Trazodone Hcl) 50 Mg Tab, 1 TAB PO HS 11/16/23 Albuterol Sulfate (Albuterol Sulfate) 0.083 % Neb, NEB UD 09/24/23 Amiodarone Hcl (Amiodarone Hcl) 200 Mg Tab, 1 TAB PO DAILY 09/24/23 Diltiazem Hcl (DILTIAZEM HCL ER) 240 Mg Cap, 1 CAP PO DAILY 09/24/23 Carvedilol (Carvedilol) 12.5 Mg Tab, 1 TAB PO BID 09/24/23 Montelukast Sodium (Singulair) 10 Mg Tab, 1 TAB PO DAILY 09/24/23 Metformin HCl (Metformin Hydrochloride) 1,000 Mg Tab, 1 TAB PO BID 09/24/23 Terazosin Hcl (Terazosin Hcl) 1 Mg Cap, 1 TAB PO DAILY 09/29/19 Apixaban Base (ELIQUIS) 5 Mg Tab, 1 TAB PO BID 09/29/19 Lisinopril (Lisinopril) 40 Mg Tab, 1 TAB PO DAILY 09/29/19 Atorvastatin Calcium (Lipitor) 40 Mg Tab, 1 TAB PO QPM 09/29/19 Plan/Recommendation 74yo M with MR liz at [facility], here with PNA +sepsis, hypoxemia, Type II NE. Will follow up echo, bedside POCUS demonstrates mild-mod MR. Primary management related to treating infection. Supportive therapy of hypoxia, volume. Appears on the dry side. Further recommendations per clinical progression. MEME APARICIO Jan 12, 2025 09:24 GAVIN HARRIS MD Jan 13, 2025 08:44
[2025-01-12] MEDS: APIXABAN 5 MG TAB PO SCH (09:26)
[2025-01-12] MEDS: dilTIAZem 120MG ER CAP PO SCH (09:27)
[2025-01-12] MEDS: CARVEDILOL 12.5 MG TAB PO SCH (09:27)
[2025-01-12] MEDS: AZITHROMYCIN 500MG/ 250ML 250 ML IV SCH (09:38)
[2025-01-12] MEDS: AMIODARONE HCL 200 MG TAB PO SCH (09:39)
[2025-01-12] MEDS ORDERED: PATIENTS OWN MEDICATION (Lisinopril 1 TAB) PO SCH (10:00)
[2025-01-12 11:26] LABS: Base Excess 1.7 mmol/L (-2.0-3.0)
[2025-01-12 11:52] LABS: Potassium 3.5 mmol/L (3.5-5.1); Sodium 143 mmol/L (136-145)
[2025-01-12 11:53] LABS: Anion Gap 18 (5-15)
[2025-01-12 11:57] LABS: Carbon Dioxide 18 mmol/L (20-31); Chloride 107 mmol/L (98-107)
[2025-01-12 11:58] LABS: Blood Urea Nitrogen 17 mg/dL (9-23)
[2025-01-12] MEDS: DOXYCYCLINE 100MG/100ML 100 ML IV SCH (11:59)
[2025-01-12 12:00] LABS: Glucose 310 mg/dL (74-106)
[2025-01-12] MEDS: LEVALBUTEROL HCL 1.25 MG/3 ML NEB NEB SCH (12:13)
[2025-01-12] MEDS: IPRATROPIUM BROM 0.5 MG/2.5ML INH SOL NEB PRN (12:13)
[2025-01-12] MEDS ORDERED: LABETALOL HCL 20 MG/4 ML VL IV PRN (12:15)
--- NOTE | 2025-01-12 12:16 | DVHPN2 ---
Progress Note Date Seen: Jan 12, 2025 Medical Necessity Reason Pt with a Central, PICC or Fol: No Subjective Patient reports: No new complaints Review of Systems: HEENT:Normal, CVS:Normal, RESPIRATORY:Normal, GI:Normal, :Normal, MSK:Normal, NEURO:Normal Objective vital signs Vital Sign Date Time Temp Pulse Resp B/P (MAP) Pulse Ox O2 Delivery O2 Flow Rate FiO2 01/12/25 10:30 98 28 99 50.0 50 01/12/25 10:27 149/90 01/12/25 06:00 Hi-Flow NC 01/12/25 06:00 97.0 97.0 Total Intake and Output 01/11/25 01/11/25 01/12/25 15:00 23:00 07:00 Intake Total 160 ml Output Total 400 ml Balance -240 ml medications Current Medications Medications Dose Ordered Sig/Mckayla Route Start Time Stop Time Status Last Admin Dose Admin Dextrose 50 ml PRN PRN IV 01/12/25 05:15 Cancel Dextrose 50 ml PRN PRN IV 01/12/25 05:15 Cancel Hydralazine HCl 10 mg Q6HP PRN IV 01/12/25 05:30 Hold Furosemide 20 mg BIDD IV 01/12/25 06:00 Hold 01/12/25 06:04 20 MG Atorvastatin Calcium 40 mg HS PO 01/12/25 22:00 Amiodarone HCl 200 mg DAILY PO 01/12/25 10:00 01/12/25 09:39 200 MG Carvedilol 12.5 mg Q12HR PO 01/12/25 10:00 01/12/25 09:27 12.5 MG Diltiazem HCl 240 mg DAILY PO 01/12/25 10:00 Hold 01/12/25 09:27 240 MG Ceftriaxone Sodium 50 ml @ 100 mls/hr DAILY@09 IV 01/12/25 09:00 01/12/25 08:50 100 MLS/HR Ipratropium [place] 0.5 mg Q6HPRN PRN NEB 01/12/25 05:30 Diagnostic Test (Pha) 1 strip ACHS 01/12/25 07:00 01/12/25 11:55 1 STRIP Insulin Human Regular ACHS SC 01/12/25 07:00 01/12/25 11:55 3 UNITS Dextrose 50 ml UD PRN IV 01/12/25 05:30 Acetaminophen/ Hydrocodone Bitart 1 tab Q4HP PRN PO 01/12/25 05:30 Ondansetron HCl 4 mg Q4HP PRN IV 01/12/25 05:30 Acetaminophen 650 mg Q6HP PRN PO 01/12/25 05:30 Nitroglycerin 0.4 mg Q5MINP PRN SL 01/12/25 05:30 Morphine Sulfate 2 mg Q30M PRN IV 01/12/25 05:30 Apixaban 5 mg BID PO 01/12/25 10:00 01/12/25 09:26 5 MG Levalbuterol HCl 0.625 mg Q6HR NEB 01/12/25 12:00 Patient Own Medication 1 tab DAILY PO 01/12/25 10:00 UNV Lisinopril 40 mg DAILY PO 01/13/25 10:00 Doxycycline Hyclate 100 ml @ 50 mls/hr Q12H IV 01/12/25 11:15 01/12/25 11:59 50 MLS/HR Examination: GENERAL:Normal, HEENT:Normal, NECK:Normal, LUNGS:Normal, LUNGS:Abnormal (on high flow, rales bilateral), CVS:Normal, ABDOMEN:Normal, MSK:Normal, SKIN:Normal, NEURO:Normal, :Normal laboratory and microbiology Laboratory Tests 01/12/25 05:20 01/12/25 02:03 Test 01/12/25 05:20 Range/Units Serum Glucose 310 H 74-106 mg/dL Problem List/Assessment/Plan Problem List/Assessment/Plan #1 acute resp failure: con high flow oxygen #2 sepsis with pneumonia- gram positive/neg: iv antibiotics #3 acute on chronic diastolic heart failure: lasix iv #4 htn ?emergency: adjust meds #5 dm: ssi #6 nstemi: cardio eval #7 copd with exacerbation #8 a fib with secondary hypercoagulable state: eliquis unstable for transfer Plan discussed with: Patient My Orders My Orders Orders - CHARBEL AMEZCUA MD Procedure Category Date Status Time Furosemide Injection PHA 01/12/25 Verified (Lasix Injection) 12:15 Furosemide Injection PHA 01/13/25 Verified (Lasix Injection) 10:00 Urinalysis LAB 01/12/25 Uncollected 12:01 Complete Blood Count LAB 01/13/25 Verified 06:00 Comprehensive LAB 6/24/25 Verified Metabolic Panel 06:00 Chest Portable XY 01/13/25 Verified 06:00 Abg W/ Co-Ox RT 01/13/25 Verified 06:00 Zosyn Extended PHA 01/12/25 Verified Infusion 12:15 Zosyn Extended PHA 01/12/25 Verified Infusion 14:00 Hemoglobin A1c LAB 01/13/25 Verified 06:00 Critical Care Time (mins): 58 (critical care time excluding procedures is 58 mins) Date of Service: Jan 12, 2025 Billing Provider: CHARBEL AMEZCUA MD Common Visit Codes: [id number] CARE 30-74 MIN CHARBEL AMEZCUA MD Jan 12, 2025 12:16
[2025-01-12 12:19] LABS: Base Excess -7.5 mmol/L (-2.0-3.0)
[2025-01-12 13:58] LABS: Urine Bacteria None Seen /hpf (None Seen)
[2025-01-12 14:06] LABS: Urine Blood Negative /uL (Negative); Urine Clarity Clear (Clear); Urine Color Yellow (Yellow); Urine Mucus FEW (None Seen); Urine Protein, UAD 2+ (Negative); Urine Specific Gravity 1.024 (1.001-1.035); Urine Squamous Epithelial Cell FEW /hpf (<5); Urine Urobilinogen Normal (Negative); Urine WBC 4 /HPF (0-3); Urine pH 5.5 (5.0-9.0)
[2025-01-12 15:19] LABS: Amphetamine Screen, Urine Neg (NEGATIVE); Barbiturate Scree,Urine Neg (NEGATIVE); Benzodiazephine Screen, Urine Neg (NEGATIVE); Opiate Scree,Urine Neg (NEGATIVE); Phencyclidine Screen, Urine Neg (NEGATIVE)
[2025-01-12 15:20] LABS: Cannabinoid Screen, Urine Pos (NEGATIVE); Cocaine Screen, Urine Neg (NEGATIVE)
[2025-01-12 15:20] LABS: Albumin 5.3 g/dL (3.2-4.8); Bilirubin, Direct 0.3 mg/dL (<0.3); Bilirubin, Total 0.9 mg/dL (0.2-1.0); Total Protein 8.7 g/dL (5.7-8.2)
[2025-01-12 18:21] LABS: Chloride 105 mmol/L (98-107); Sodium 142 mmol/L (136-145)
[2025-01-12 18:22] LABS: Anion Gap 14 (5-15); Carbon Dioxide 23 mmol/L (20-31)
[2025-01-12 18:28] LABS: Blood Urea Nitrogen 15 mg/dL (9-23)
[2025-01-12 18:32] LABS: Glucose 160 mg/dL (74-106)
[2025-01-12] MEDS: PIPERACILLIN-TAZOB 3.375GM 100 ML IV SCH (18:40)
--- NOTE | 2025-01-12 20:56 | DVHHP2 ---
History of Present Illness Reason for Visit: Shortness for breath History of Present Illness 74-year-old male with a history of congestive heart failure and COPD presents for evaluation of shortness for breath. Patient endorses a one day history of worsening shortness for breath with associated cough. Denies fever or chills. No palpitations. History reported. Past Medical History COPD, CHF, asthma, AFib, diabetes mellitus, dyslipidemia, hypertension Past Surgical History Appendectomy Family History Noncontributory Smoke: No ALCOHOL: none Drugs: None Lives: with Family Review of Systems Review of Systems Review of systems are currently negative otherwise addressed in HPI. Allergies: Coded Allergies: Metoprolol (Verified Allergy, Severe, RASH, 09/28/19) Medications Current Medications Medications Dose Ordered Sig/Mckayla Route Start Time Stop Time Status Last Admin Dose Admin Dextrose 50 ml PRN PRN IV 01/12/25 05:15 Cancel Dextrose 50 ml PRN PRN IV 01/12/25 05:15 Cancel Atorvastatin Calcium 40 mg HS PO 01/12/25 22:00 Amiodarone HCl 200 mg DAILY PO 01/12/25 10:00 01/12/25 09:39 200 MG Carvedilol 12.5 mg Q12HR PO 01/12/25 10:00 01/12/25 09:27 12.5 MG Ipratropium [place] 0.5 mg Q6HPRN PRN NEB 01/12/25 05:30 01/12/25 12:13 0.5 MG Diagnostic Test (Pha) 1 strip ACHS 01/12/25 07:00 01/12/25 16:24 1 STRIP Insulin Human Regular ACHS SC 01/12/25 07:00 01/12/25 16:41 3 UNITS Dextrose 50 ml UD PRN IV 01/12/25 05:30 Acetaminophen/ Hydrocodone Bitart 1 tab Q4HP PRN PO 01/12/25 05:30 Ondansetron HCl 4 mg Q4HP PRN IV 01/12/25 05:30 Acetaminophen 650 mg Q6HP PRN PO 01/12/25 05:30 Nitroglycerin 0.4 mg Q5MINP PRN SL 01/12/25 05:30 Morphine Sulfate 2 mg Q30M PRN IV 01/12/25 05:30 Apixaban 5 mg BID PO 01/12/25 10:00 01/12/25 09:26 5 MG Levalbuterol HCl 0.625 mg Q6HR NEB 01/12/25 12:00 01/12/25 18:50 0.625 MG Patient Own Medication 1 tab DAILY PO 01/12/25 10:00 UNV Lisinopril 40 mg DAILY PO 01/13/25 10:00 Doxycycline Hyclate 100 ml @ 50 mls/hr Q12H IV 01/12/25 11:15 01/12/25 11:59 50 MLS/HR Piperacillin Sod/ Tazobactam Sod 100 ml @ 25 mls/hr Q8H IV 01/12/25 19:00 01/12/25 18:40 25 MLS/HR Labetalol HCl 10 mg Q4HP PRN IV 01/12/25 12:15 Hold Exam Vital Signs Vital Signs Date Time Temp Pulse Resp B/P (MAP) Pulse Ox O2 Delivery O2 Flow Rate FiO2 01/12/25 20:00 98 01/12/25 19:00 28 134/61 (85) 93 01/12/25 18:50 Room Air* 0 21 01/12/25 08:40 97.3 97.3 Exam Gen: 74-year-old male in mild distress Skin: Warm, dry, normal color and texture, no rash. HEENT: Normocephalic atraumatic, mucous membranes moist and pink. Neck: Cervical and supraclavicular nodes normal without enlargement, trachea is midline, thyroid gland is normal without masses. Pulmonary: Bilateral rhonchi. Cardiac: Regular rate and rhythm. No murmur Abdomen: Soft, nontender, nondistended, bowel sounds present all 4 quadrants, no guarding, no rigidity, no organomegaly. Extremities: No cyanosis, clubbing, no edema Neuro: Cranial nerves II through XII grossly intact, normal affect and speech, no focal motor deficits. Labs/Xrays ORDERING PHYSICIAN: MINISTERIO NEWMAN MD PROCEDURE(s): CXR1 - CHEST XRAY 1 VIEW REASON: SHORTNESS OF BREATH ORDER NUMBER(s): [id number], ACCESSION NUMBER(s): [id number] CHEST RADIOGRAPH Indication: SHORTNESS OF BREATH Technique: Single frontal view of the chest was obtained COMPARISON: XY CHEST PORTABLE on DOS: 01/19/24, XY CHEST PORTABLE on DOS: 11/17/23, XY CHEST PORTABLE on DOS: 11/14/23, XY CHEST PORTABLE on DOS: 09/25/23, XY CHEST PORTABLE on DOS: 09/23/23 FINDINGS: Lines and Tubes: None Lungs: Diffuse multifocal bilateral pulmonary airspace disease with consolidative features stable in appearance when compared to the prior exam. Pleura: No effusion. No pneumothorax. Cardiomediastinal contours: Unremarkable Bones: Unremarkable IMPRESSION: 1. Stable appearing diffuse multifocal bilateral pulmonary airspace disease with consolidative features. Labs Test 01/12/25 18:03 01/12/25 16:23 01/12/25 13:50 01/12/25 12:15 Range/Units Sodium Level 142 136-145 mmol/L Potassium Level 3.0 L 3.5-5.1 mmol/L Chloride Level 105 98-107 mmol/L Carbon Dioxide Level 23 20-31 mmol/L Anion Gap 14 5-15 Blood Urea Nitrogen 15 9-23 mg/dL Creatinine 0.75 0.700-1.30 mg/dL Glomerular Filtration Rate Calc 96 >90 mL/min BUN/Creatinine Ratio 20.0 10.0-20.0 Serum Glucose 160 #H 74-106 mg/dL Calcium Level 10.0 8.7-10.4 mg/dL POC Glucose 182 H 70-106 mg/dl Urine Color Yellow Yellow Urine Clarity Clear Clear Urine pH 5.5 5.0-9.0 Urine Specific Jones 1.024 1.001-1.035 Urine Protein 2+ H Negative Urine Ketones Trace Negative Urine Blood Negative Negative /uL Urine Nitrite Negative Negative Urine Bilirubin Negative Negative Urine Urobilinogen Normal Negative mg/dL Urine Leukocyte Esterase Negative Negative /uL Urine RBC <1 0 - 3 /hpf Urine Microscopic WBC 4 H 0-3 /HPF Urine Squamous Epithelial Cells Few <5 /hpf Urine Bacteria None seen None Seen /hpf Urine Mucus Few None Seen Urine Glucose Normal Normal mg/dL Urine Opiates Screen Neg NEGATIVE Urine Fentanyl Screen Neg NEGATIVE Urine Barbiturates Screen Neg NEGATIVE Urine Phencyclidine Screen Neg NEGATIVE Urine Amphetamines Screen Neg NEGATIVE Urine Benzodiazepines Screen Neg NEGATIVE Urine Cocaine Screen Neg NEGATIVE Urine Cannabinoids Screen Pos NEGATIVE Troponin I High Sensitivity 359 *H </=54 ng/L Test 01/12/25 10:23 01/12/25 07:19 01/12/25 05:20 01/12/25 02:30 Range/Units Blood Gas Specimen Type Arterial Blood Gas Sample Site Right radial Blood Gas Patient Temperature 37.0 Arterial Blood Date Drawn [id number] Arterial Blood pH 7.524 H 7.350-7.450 Arterial Blood Partial Pressure CO2 28.8 L 35.0-48.0 mmHg Arterial Blood Partial Pressure O2 119.7 H 83.0-108.0 mmHg Arterial Blood HCO3 23.2 21.0-28.0 mmol/L Arterial Blood Oxygen Saturation 97.9 94.0-98.0 % Arterial Blood Base Excess 1.7 -2.0-3.0 mmol/L Arterial Blood Oxyhemoglobin 96.8 94.0-98.0 % Arterial Blood Carboxyhemoglobin 1.0 0.5-1.5 % Arterial Blood Methemoglobin 0.1 0.0-1.5 % Reinaldo Test Yes Blood Gas Total Hemoglobin 16.10 13.5-17.5 g/dL Blood Gas Liter Flow 50.00 Blood Gas Modality High flow Blood Gas Spontaneous Rate 28 FiO2 % 50.0 Lactic Acid Level 3.4 *H 0.4-2.0 mmol/L Total Bilirubin 0.9 0.2-1.0 mg/dL Direct Bilirubin 0.3 <0.3 mg/dL Aspartate Amino Transferase (AST) 38 H <34 U/L Alanine Aminotransferase (ALT) 66 H 7-40 U/L Alkaline Phosphatase 124 H 46-116 U/L Total Protein 8.7 H 5.7-8.2 g/dL Albumin 5.3 H 3.2-4.8 g/dL Magnesium Level 2.0 1.6-2.6 mg/dL C-Reactive Protein High Sensitivity 0.33 <1.0 mg/dL Thyroid Stimulating Hormone (TSH) 0.67 0.55-4.78 uIU/mL Influenza Type A Antigen Negative Negative Influenza Type B Antigen Negative Negative SARS-CoV-2 Antigen (Rapid) Negative NEGATIVE Test 01/12/25 02:08 01/12/25 02:03 01/12/25 01:18 Range/Units Prothrombin Time 11.2 9.3-11.8 sec Prothrombin Time INR 1.06 0.9-1.15 D-Dimer, Quantitative 0.61 H 0.0-0.49 mg/L FEU White Blood Count 19.8 H 4.4-10.8 10^3/uL Red Blood Count 4.94 4.5-5.90 10^6/uL Hemoglobin 15.7 13.5-17.5 g/dL Hematocrit 46.8 41.0-53.0 % Mean Corpuscular Volume 94.9 80.0-100.0 fL Mean Corpuscular Hemoglobin 31.8 28.0-32.0 pg Mean Corpuscular Hemoglobin Concent 33.5 32.0-36.0 g/dL Red Cell Distribution Width 14.6 H 11.8-14.3 % Platelet Count 318 140-450 10^3/uL Mean Platelet Volume 7.6 6.9-10.8 fL Neutrophils (%) (Auto) 81.1 H 37.0-80.0 % Lymphocytes (%) (Auto) 11.6 10.0-50.0 % Monocytes (%) (Auto) 4.5 0.0-12.0 % Eosinophils (%) (Auto) 2.1 0.0-7.0 % Basophils (%) (Auto) 0.7 0.0-2.0 % Neutrophils # (Auto) 16.0 H 1.6-8.6 10 ^3/uL Lymphocytes # (Auto) 2.3 0.4-5.4 10 ^3/uL Monocytes # (Auto) 0.9 0-1.3 10 ^3/uL Eosinophils # (Auto) 0.4 0-0.8 10 ^3/uL Basophils # (Auto) 0.1 0-0.2 10 ^3/uL Nucleated Red Blood Cells 0.0 % B-Type Natriuretic Peptide 570.05 0-100 pg/mL Plasma/Serum Blood Alcohol < 3.0 <10 mg/dL Blood Gas Set Respiration Rate 12.0 Blood Gas Spontaneous Tidal Volume 620 Blood Gas EPAP 6 Blood Gas IPAP 12 Bl Gas Inspiratory/Expiratory Ratio 1:2 Assessment/Plan Assessment/Plan Assessment Multifocal pneumonia Acute on chronic congestive heart failure Diabetes mellitus History of atrial fibrillation Secondary coagulopathy Elevated troponin possible demand ischemia Admit the patient to telemetry to the hospitalist Med nebs Azithromycin/Rocephin Resume home medications IV Lasix Continue treatment per orders. Plan discussed with: Patient My Orders Orders - CHARBEL MENDEZ Procedure Category Date Status Time Atorvastatin (Lipitor) PHA 01/12/25 In Process 22:00 Amiodarone Tablet PHA 01/12/25 In Process (Cordarone Tablet) 10:00 Carvedilol Tablet PHA 01/12/25 In Process (Coreg Tablet) 10:00 Ipratropium Medneb PHA 01/12/25 In Process (Atrovent Medneb) 05:30 Glucose Blood PHA 01/12/25 In Process (Accu-Chek Comfort 07:00 Insulin R (Human) PHA 01/12/25 In Process (Insulin R) 07:00 Dextrose 50% Syringe PHA 01/12/25 In Process 05:30 Admit ADMIT 01/12/25 Transmitted 05:24 Hydrocodone-Acet PHA 01/12/25 In Process 5/325mg Tab ([place] 05:30 Ondansetron Hcl PHA 01/12/25 In Process (Zofran) 05:30 Complete Blood Count LAB 01/13/25 Verified 04:00 Comprehensive LAB 01/13/25 Verified Metabolic Panel 04:00 Cardiac DIET 01/12/25 Transmitted Diet-2gna,Lofat,Lochol Breakfast Condition: Serious SERJIO 01/12/25 In Process 05:24 Acetaminophen Tablet PHA 01/12/25 In Process (Tylenol Tablet) 05:30 Bedrest With Bathroom SERJIO 01/12/25 In Process Privileg 05:24 Nitroglycerin PHA 01/12/25 In Process Sublingual (Ntrostat 05:30 Morphine Sulfate PHA 01/12/25 In Process Injection 05:30 Stat Ekg For Chest SERJIO 01/12/25 In Process Pain 05:24 Notify Md Of Changes SERJIO 01/12/25 In Process From Base 05:24 Sock Examiner For SERJIO 01/12/25 In Process 24 Hours 05:24 Emergency Dysrhythmia SERJIO 01/12/25 In Process Protocol 05:24 Rhythm Strips Once SERJIO 01/12/25 In Process Every Shift 05:24 Oxygen By Nasal RT 01/12/25 Transmitted Cannula 05:24 Apixaban (Eliquis) PHA 01/12/25 In Process 10:00 Date of Service: Jan 12, 2025 Billing Provider: CHARBEL MENDEZ Common Visit Codes: [id number] INP/OBS CARE (HIGH) CHARBEL MENDEZ Jan 12, 2025 20:56
[2025-01-12] MEDS ORDERED: ACCU-CHEK COMFORT CURVE STRIP VI ONE (21:15)
[2025-01-12] MEDS: POTASSIUM EFFERVESENT TAB 25 MEQ PO ONE (22:24)
[2025-01-12] MEDS: traZODone HCL 50 MG TAB PO ONE (22:25)
[2025-01-12] MEDS: ATORVASTATIN 20 MG TAB PO SCH (22:25)
[2025-01-12] MEDS: amLODIPine BESYLATE 5 MG TAB PO ONE (22:25)
[2025-01-13] VITALS (29 sets, daily range): BP systolic 123–155; BP diastolic 73–101; PULSE 74–106; RESP 15–34; TEMP 97.5–98.3; O2SAT 92–98
[2025-01-13 01:19] LABS: Urine Bacteria None Seen /hpf (None Seen)
[2025-01-13 01:36] LABS: Urine Blood Negative /uL (Negative); Urine Clarity Clear (Clear); Urine Color Yellow (Yellow); Urine Protein, UAD 2+ (Negative); Urine Specific Gravity 1.026 (1.001-1.035); Urine Squamous Epithelial Cell None Seen /hpf (<5); Urine Urobilinogen Normal (Negative); Urine WBC 5 /HPF (0-3)
[2025-01-13] MEDS: HYDROcodone-ACET 5/325MG TAB PO PRN (04:16)
[2025-01-13 05:12] LABS: Basophils # (auto) 0.1 10 ^3/uL (0-0.2); Basophils % (auto) 0.4 % (0.0-2.0); Eosinophils # (auto) 0 10 ^3/uL (0-0.8); Hematocrit 46.7 % (41.0-53.0); Hemoglobin 16.1 g/dL (13.5-17.5); Lymphocytes % (auto) 11.5 % (10.0-50.0); Mean Corpuscular Hemoglobin 31.6 pg (28.0-32.0); Mean Corpuscular Hgb Conc. 34.4 g/dL (32.0-36.0); Monocytes % (auto) 5.9 % (0.0-12.0); Neutrophils # (auto) 14.6 10 ^3/uL (1.6-8.6); Neutrophils % (auto) 82.2 % (37.0-80.0); Platelet Count (auto) 299 10^3/uL (140-450); Red Blood Cells 5.08 10^6/uL (4.5-5.90); Red Cell Distribution Width 14.4 % (11.8-14.3); White Blood Cell 17.7 10^3/uL (4.4-10.8)
[2025-01-13 05:14] LABS: Albumin 4.6 g/dL (3.2-4.8); Alkaline Phosphatase 96 U/L (46-116); Anion Gap 13 (5-15); Aspartate Aminotransferase 32 U/L (<34); BUN/Creatinine Ratio 21.6 (10.0-20.0); Blood Urea Nitrogen 16 mg/dL (9-23); Calcium 9.2 mg/dL (8.7-10.4); Carbon Dioxide 24 mmol/L (20-31); Chloride 103 mmol/L (98-107); Sodium 140 mmol/L (136-145); Total Protein 7.5 g/dL (5.7-8.2)
[2025-01-13 05:19] LABS: Alanine Aminotransferase 51 U/L (7-40); Bilirubin, Total 1.8 mg/dL (0.2-1.0); Glucose 161 mg/dL (74-106); Potassium 3.1 mmol/L (3.5-5.1)
--- NOTE | 2025-01-13 06:35 | DVH ---
EXAM: XR Chest, 1 View CLINICAL INDICATION: CHF TECHNIQUE: Frontal view of the chest. COMPARISON: No relevant prior studies available. FINDINGS: LUNGS AND PLEURAL SPACES: Left basilar atelectasis or pneumonia. No pneumothorax. HEART: Unremarkable. No cardiomegaly. MEDIASTINUM: Unremarkable. Normal mediastinal contour. BONES/JOINTS: Unremarkable. No acute fracture. OTHER FINDINGS: Comparison XY CHEST XRAY 1 VIEW on DOS: 01/12/25, XY CHEST PORTABLE on DOS: 01/19/24, XY CHEST PORTABLE on DOS: 11/17/23, XY CHEST PORTABLE on DOS: 11/14/23, XY CHEST PORTABLE on DOS: . IMPRESSION: Left basilar atelectasis or pneumonia. HS:Y
--- NOTE | 2025-01-13 08:27 | DVHPNRES ---
Progress Note Date Seen: Jan 13, 2025 Resident Creating Document: MEME APARICIO RESIDENT Medical Necessity Reason Pt with a Central, PICC or Fol: No Subjective Review of Systems Patient seen and examined at bedside. Reports significant improvement in symptoms compared to yesterday. Denies any active ongoing palpitations or chest pain. Objective vital signs Vital Sign Date Time Temp Pulse Resp B/P (MAP) Pulse Ox O2 Delivery O2 Flow Rate FiO2 01/13/25 08:00 89 01/13/25 07:30 17 148/93 (111) 96 01/13/25 06:11 Room Air* 0 21 01/13/25 04:00 98.3 98.3 Total Intake and Output 01/12/25 01/12/25 01/13/25 15:00 23:00 07:00 Intake Total 580 ml 800 ml 750 ml Output Total 1300 ml 325 ml Balance 580 ml -500 ml 425 ml medications Current Medications Medications Dose Ordered Sig/Mckayla Route Start Time Stop Time Status Last Admin Dose Admin Dextrose 50 ml PRN PRN IV 01/12/25 05:15 Cancel Dextrose 50 ml PRN PRN IV 01/12/25 05:15 Cancel Atorvastatin Calcium 40 mg HS PO 01/12/25 22:00 01/12/25 22:25 40 MG Amiodarone HCl 200 mg DAILY PO 01/12/25 10:00 01/12/25 09:39 200 MG Carvedilol 12.5 mg Q12HR PO 01/12/25 10:00 01/12/25 09:27 12.5 MG Ipratropium [place] 0.5 mg Q6HPRN PRN NEB 01/12/25 05:30 01/13/25 06:11 0.5 MG Diagnostic Test (Pha) 1 strip ACHS 01/12/25 07:00 01/13/25 06:45 1 STRIP Insulin Human Regular ACHS SC 01/12/25 07:00 01/13/25 06:44 3 UNITS Dextrose 50 ml UD PRN IV 01/12/25 05:30 Acetaminophen/ Hydrocodone Bitart 1 tab Q4HP PRN PO 01/12/25 05:30 01/13/25 04:16 1 TAB Ondansetron HCl 4 mg Q4HP PRN IV 01/12/25 05:30 Acetaminophen 650 mg Q6HP PRN PO 01/12/25 05:30 Nitroglycerin 0.4 mg Q5MINP PRN SL 01/12/25 05:30 Morphine Sulfate 2 mg Q30M PRN IV 01/12/25 05:30 Apixaban 5 mg BID PO 01/12/25 10:00 01/12/25 22:25 5 MG Levalbuterol HCl 0.625 mg Q6HR NEB 01/12/25 12:00 01/13/25 06:12 0.625 MG Patient Own Medication 1 tab DAILY PO 01/12/25 10:00 UNV Lisinopril 40 mg DAILY PO 01/13/25 10:00 Doxycycline Hyclate 100 ml @ 50 mls/hr Q12H IV 01/12/25 11:15 01/12/25 22:26 50 MLS/HR Piperacillin Sod/ Tazobactam Sod 100 ml @ 25 mls/hr Q8H IV 01/12/25 19:00 01/13/25 02:03 25 MLS/HR Labetalol HCl 10 mg Q4HP PRN IV 01/12/25 12:15 Hold Examination General Appearance: Cooperative. Well developed. Well nourished. Head Exam: Normal inspection Neck Exam: Normal inspection. Non-tender. Normal alignment Pulmonary/Respiratory: Chest non-tender. Decreased bilateral breath sounds, no wheezing. Cardiovascular/Chest: Regular rate and rhythm. No murmurs. Peripheral Pulses: 2+ Radial (R). 2+ Radial (L). 2+ Pedal (R). 2+ Pedal (L) Abdominal Exam: Normal bowel sounds. Soft. normal abdomen, no visible veins, Nontender. No hepatospenomegaly. No masses Ankle Exam: Negative ankle edema Lower extremities: Negative lower extremity edema Neuro/Mental Status: A&O x4. Coherent. Trace tremor noted in right hand Thoughts/Psych: Normal thought pattern. Appropriate mood and affect. Good judgement and insight Skin Exam: Normal inspection. Normal color. Warm. Dry laboratory and microbiology Laboratory Tests 01/13/25 04:23 Test 01/13/25 04:23 Range/Units Serum Glucose 161 H 74-106 mg/dL Microbiology Date/Time Source Procedure Growth Status 01/12/25 02:08 Blood Blood Culture - Preliminary NO GROWTH AFTER 24 HOURS OF INCUBATION. Resulted Labs and/or images reviewed: Labs reviewed by me, Image(s) reviewed by me Problem List/Assessment/Plan Problem List/Assessment/Plan Acute hypoxic respiratory failure COPD exacerbation Acute on chronic congestive heart failure, systolic versus diastolic Sepsis possibly secondary to pneumonia Lactic acidosis due to above NSTEMI type 2 due to above Atrial fibrillation with secondary hypercoagulable state, on Eliquis 5 mg b.i.d. Severe mitral regurgitation Essential hypertension Prolonged QTC 546 Plan: Cautious IV hydration Hold IV furosemide, continue home dose po furosemide Continue Eliquis Continue amiodarone Antibiotics Patient will benefit from DAMIEN once stabilized given severe mitral regurgitation noted on echocardiogram from September 2023 Avoid QT prolonging drugs Rest of the plan as per course of hospitalization Thank you so much for the opportunity to consult on your patient. Cardiology team will follow the patient. In case of any questions or concerns please feel free to reach out. Plan discussed with Dr. Harris Plan discussed with: Patient, Other (RN) My Orders My Orders Orders - MEME APARICIO Procedure Category Date Status Time Urine Bacterial VINAY 01/12/25 In Process Culture 09:11 Levalbuterol Hcl PHA 01/12/25 In Process (Xopenex Medneb) 12:00 Lisinopril Tablet PHA 01/13/25 In Process (Zestril Tablet) 10:00 Abg W/ Co-Ox RT 01/12/25 Logged 10:09 Doxycycline PHA 01/12/25 In Process 100mg/100ml 11:15 Troponin-I Hs LAB 01/13/25 In Process 08:57 Troponin-I Hs LAB 01/13/25 Logged 10:57 Visit Coding Cardiology RES Date of Service: Jan 13, 2025 Billing Provider: GAVIN HARRIS MD Cardiology Common Codes: [id number] HOSP CARE(MEME Haji RESIDENT Jan 13, 2025 08:27
[2025-01-13] MEDS: POTASSIUM EFFERVESENT TAB 25 MEQ PO ONE (09:05)
[2025-01-13] MEDS ORDERED: FUROSEMIDE 40 MG/4 ML VIAL IV SCH (10:00)
[2025-01-13] MEDS: LISINOPRIL 20 MG TAB PO SCH (10:06)
--- NOTE | 2025-01-13 12:20 | DVHPN2 ---
Progress Note Date Seen: Jan 13, 2025 Medical Necessity Reason Pt with a Central, PICC or Fol: No Subjective Patient reports: No new complaints Review of Systems: HEENT:Normal, CVS:Normal, RESPIRATORY:Normal, GI:Normal, :Normal, MSK:Normal, NEURO:Normal Objective vital signs Vital Sign Date Time Temp Pulse Resp B/P (MAP) Pulse Ox O2 Delivery O2 Flow Rate FiO2 01/13/25 11:31 96 155/104 01/13/25 09:10 19 95 01/13/25 07:30 Room Air* 0 21 01/13/25 04:00 98.3 98.3 Total Intake and Output 01/12/25 01/12/25 01/13/25 15:00 23:00 07:00 Intake Total 580 ml 800 ml 750 ml Output Total 1300 ml 325 ml Balance 580 ml -500 ml 425 ml medications Current Medications Medications Dose Ordered Sig/Cmkayla Route Start Time Stop Time Status Last Admin Dose Admin Dextrose 50 ml PRN PRN IV 01/12/25 05:15 Cancel Dextrose 50 ml PRN PRN IV 01/12/25 05:15 Cancel Atorvastatin Calcium 40 mg HS PO 01/12/25 22:00 01/12/25 22:25 40 MG Amiodarone HCl 200 mg DAILY PO 01/12/25 10:00 01/13/25 10:06 200 MG Carvedilol 12.5 mg Q12HR PO 01/12/25 10:00 01/13/25 10:06 12.5 MG Ipratropium [place] 0.5 mg Q6HPRN PRN NEB 01/12/25 05:30 01/13/25 06:11 0.5 MG Diagnostic Test (Pha) 1 strip ACHS 01/12/25 07:00 01/13/25 11:49 1 STRIP Insulin Human Regular ACHS SC 01/12/25 07:00 01/13/25 11:48 3 UNITS Dextrose 50 ml UD PRN IV 01/12/25 05:30 Acetaminophen/ Hydrocodone Bitart 1 tab Q4HP PRN PO 01/12/25 05:30 01/13/25 04:16 1 TAB Ondansetron HCl 4 mg Q4HP PRN IV 01/12/25 05:30 Acetaminophen 650 mg Q6HP PRN PO 01/12/25 05:30 Nitroglycerin 0.4 mg Q5MINP PRN SL 01/12/25 05:30 Morphine Sulfate 2 mg Q30M PRN IV 01/12/25 05:30 Apixaban 5 mg BID PO 01/12/25 10:00 01/13/25 10:05 5 MG Levalbuterol HCl 0.625 mg Q6HR NEB 01/12/25 12:00 01/13/25 06:12 0.625 MG Patient Own Medication 1 tab DAILY PO 01/12/25 10:00 UNV Lisinopril 40 mg DAILY PO 01/13/25 10:00 01/13/25 10:06 40 MG Doxycycline Hyclate 100 ml @ 50 mls/hr Q12H IV 01/12/25 11:15 01/12/25 22:26 50 MLS/HR Piperacillin Sod/ Tazobactam Sod 100 ml @ 25 mls/hr Q8H IV 01/12/25 19:00 01/13/25 10:08 25 MLS/HR Labetalol HCl 10 mg Q4HP PRN IV 01/12/25 12:15 Hold Examination: GENERAL:Normal, HEENT:Normal, NECK:Normal, LUNGS:Normal, CVS:Normal, ABDOMEN:Normal, MSK:Normal, SKIN:Normal, NEURO:Normal, :Normal laboratory and microbiology Laboratory Tests 01/13/25 04:23 Test 01/13/25 04:23 Range/Units Serum Glucose 161 H 74-106 mg/dL Microbiology Date/Time Source Procedure Growth Status 01/12/25 13:50 Voided Urine Urine Culture - Preliminary Resulted 01/12/25 02:08 Blood Blood Culture - Preliminary NO GROWTH AFTER 24 HOURS OF INCUBATION. Resulted Problem List/Assessment/Plan Problem List/Assessment/Plan #1 acute resp failure: con high flow oxygen, wean off #2 sepsis with pneumonia- gram positive/neg: iv antibiotics #3 acute on chronic diastolic heart failure: lasix iv #4 htn emergency: adjust meds #5 dm: ssi #6 nstemi: cardio eval #7 copd with exacerbation #8 a fib with secondary hypercoagulable state: marva advance care planning- full code-time spent 19 mins unstable for transfer Plan discussed with: Patient My Orders My Orders Orders - CHARBEL AMEZCUA MD Procedure Category Date Status Time Furosemide Injection PHA 01/13/25 Verified (Lasix Injection) 12:15 Furosemide Tablet PHA 01/14/25 Verified (Lasix Tablet) 10:00 Potassium Er Tablet PHA 01/13/25 Verified (Klor-Con Tablet) 12:15 Potassium Er Tablet PHA 01/14/25 Verified (Klor-Con Tablet) 10:00 Diltiazem Er Capsule PHA 01/13/25 Verified (Cardizem Er Capsul 12:15 Diltiazem Er Capsule PHA 01/14/25 Verified (Cardizem Er Capsul 10:00 Montelukast Tablet PHA 01/13/25 Verified (Singulair Tablet) 12:15 Montelukast Tablet PHA 01/13/25 Verified (Singulair Tablet) 22:00 Basic Metabolic Panel LAB 01/14/25 Verified 06:00 Complete Blood Count LAB 01/14/25 Verified 06:00 Magnesium LAB 01/14/25 Verified 05:00 Date of Service: Jan 13, 2025 Billing Provider: CHARBEL AMEZCUA MD Common Visit Codes: [id number] INP/OBS CARE(HIGH) Secondary Visit Codes: [id number] CARE PLAN 30 MINUTES CHARBEL AMEZCUA MD Jan 13, 2025 12:20
[2025-01-13] MEDS: MONTELUKAST SODIUM 10 MG TAB PO ONE (13:48)
[2025-01-13] MEDS: POTASSIUM CHL 20 Meq TABLET PO ONE (13:49)
[2025-01-13] MEDS: FUROSEMIDE 20 MG/2 ML VIAL IV ONE (13:54)
[2025-01-13] MEDS: dilTIAZem 120MG ER CAP PO ONE (13:54)
--- NOTE | 2025-01-13 14:45 | ECG ---
[facility] Test Date: 2025-01-12 Test Time: 06:40:47 Pat Name: PERLA MCGEE Department: ED Room: [address] [place] [address] 8 Gender: M Clerk Of Scales: USHA : 1950 Requested By: MINISTERIO NEWMAN Order Number: [id number] Reading MD: Artemio Cotto Measurements Intervals [place] Rate: 102 P: 29 SC: 87 QRS: 43 QRSD: 123 T: 126 QT: 419 QTc: 546 Interpretive Statements Sinus tachycardia Paired ventricular premature complexes Probable LVH with secondary repol abnrm Prolonged QT interval Electronically Signed On 01-13-2025 22:52:17 PDT by Artemio Cotto Please click the below link to view image of tracing.
--- NOTE | 2025-01-13 19:05 | DVHSR ---
APPROVED REPORT EXAM: Two-dimensional and M-mode echocardiogram with Doppler and color Doppler. Blood Pressure: 171/100 mmHg INDICATION EF RISK FACTORS Height: 5'10", Weight: 169 DIMENSIONS LVDd (3.8-5.7cm)LA (2D)4.9 (1.9-4.0cm)Aortic Root (2.0-3.7cm) EF (%) 25.0 (55-70%)Rt. Atrium4.4 (1.9-4.0cm)Asc. Aorta cm Mitral Valve MitralMitral Stenosis E wave0.99m/sMV Mean GR.mmHg A wave0.55m/sMV Peak GR.mmHg E/A ratio1.82D MVAcm2 DECEL [id number] 1/2 Timems Aortic Valve Aortic ValveAortic Stenosis V10.71m/Danielle Mean GR.1mmHg V20.80m/Danielle Peak GR.3mmHg LVOT Diameter2.5 (1.8-2.4cm)Doppler AVA4.35cm2 Pulmonic Valve V20.63m/s Tricuspid Valve TR Velocity3.33m/s [id number] Other Information Technically limited study due to body habitus. Conclusion Technically good study. Off axis views. Difficult acoustic windows. Undetermined rhythm. Biatrial enlargement. LV enlargement. Left ventricular function is diminished. EF is approximately 20% with severe global hypokinesis. Mild to moderate mitral insufficiency with moderate tricuspid insufficiency. Noted pulmonary hyperte nsion. No pericardial effusion masses or vegetations.
[2025-01-13] MEDS: MONTELUKAST SODIUM 10 MG TAB PO SCH (22:00)
[2025-01-14] VITALS (14 sets, daily range): BP systolic 119–144; BP diastolic 69–89; PULSE 58–92; RESP 16–18; TEMP 97.9–99.3; O2SAT 91–100
[2025-01-14 06:25] LABS: Basophils # (auto) 0 10 ^3/uL (0-0.2); Basophils % (auto) 0.3 % (0.0-2.0); Eosinophils # (auto) 0 10 ^3/uL (0-0.8); Eosinophils % (auto) 0.2 % (0.0-7.0); Hemoglobin 16.2 g/dL (13.5-17.5); Lymphocytes # (auto) 2.4 10 ^3/uL (0.4-5.4); Lymphocytes % (auto) 17.7 % (10.0-50.0); Mean Corpuscular Hemoglobin 32.7 pg (28.0-32.0); Mean Corpuscular Hgb Conc. 35.3 g/dL (32.0-36.0); Mean Corpuscular Volume 92.8 fL (80.0-100.0); Monocytes # (auto) 1.1 10 ^3/uL (0-1.3); Neutrophils % (auto) 73.8 % (37.0-80.0); Nucleated Red Blood Cells % 0.2 %; Platelet Count (auto) 279 10^3/uL (140-450); Red Blood Cells 4.96 10^6/uL (4.5-5.90); Red Cell Distribution Width 14.6 % (11.8-14.3); White Blood Cell 13.6 10^3/uL (4.4-10.8)
[2025-01-14 06:41] LABS: Anion Gap 12 (5-15); Calcium 9.3 mg/dL (8.7-10.4); Carbon Dioxide 29 mmol/L (20-31); Chloride 98 mmol/L (98-107); Sodium 139 mmol/L (136-145)
[2025-01-14 06:42] LABS: Potassium 3.5 mmol/L (3.5-5.1)
[2025-01-14 06:47] LABS: BUN/Creatinine Ratio 22.8 (10.0-20.0); Blood Urea Nitrogen 21 mg/dL (9-23); Glucose 157 mg/dL (74-106)
[2025-01-14] MEDS: POTASSIUM CHL 20 Meq TABLET PO SCH (10:30)
[2025-01-14] MEDS: FUROSEMIDE 40 MG TAB PO SCH (10:32)
[2025-01-14] MEDS: dilTIAZem 120MG ER CAP PO SCH (10:33)
--- NOTE | 2025-01-14 13:10 | DVHDS2 ---
Discharge Summary Date of Admission Jan 12, 2025 at 05:24 Date of Discharge: Jan 14, 2025 Labs/Diagnostic Data: Laboratory Results Test 01/14/25 06:37 01/14/25 05:48 01/13/25 08:18 01/13/25 04:23 POC Glucose 162 mg/dl (70-106) White Blood Count 13.6 10^3/uL (4.4-10.8) Red Blood Count 4.96 10^6/uL (4.5-5.90) Hemoglobin 16.2 g/dL (13.5-17.5) Hematocrit 46.0 % (41.0-53.0) Mean Corpuscular Volume 92.8 fL (80.0-100.0) Mean Corpuscular Hemoglobin 32.7 pg (28.0-32.0) Mean Corpuscular Hemoglobin Concent 35.3 g/dL (32.0-36.0) Red Cell Distribution Width 14.6 % (11.8-14.3) Platelet Count 279 10^3/uL (140-450) Mean Platelet Volume 7.9 fL (6.9-10.8) Neutrophils (%) (Auto) 73.8 % (37.0-80.0) Lymphocytes (%) (Auto) 17.7 % (10.0-50.0) Monocytes (%) (Auto) 8.0 % (0.0-12.0) Eosinophils (%) (Auto) 0.2 % (0.0-7.0) Basophils (%) (Auto) 0.3 % (0.0-2.0) Neutrophils # (Auto) 10.0 10 ^3/uL (1.6-8.6) Lymphocytes # (Auto) 2.4 10 ^3/uL (0.4-5.4) Monocytes # (Auto) 1.1 10 ^3/uL (0-1.3) Eosinophils # (Auto) 0 10 ^3/uL (0-0.8) Basophils # (Auto) 0 10 ^3/uL (0-0.2) Nucleated Red Blood Cells 0.2 % Sodium Level 139 mmol/L (136-145) Potassium Level 3.5 mmol/L (3.5-5.1) Chloride Level 98 mmol/L (98-107) Carbon Dioxide Level 29 mmol/L (20-31) Anion Gap 12 (5-15) Blood Urea Nitrogen 21 mg/dL (9-23) Creatinine 0.92 mg/dL (0.700-1.30) Glomerular Filtration Rate Calc 88 mL/min (>90) BUN/Creatinine Ratio 22.8 (10.0-20.0) Serum Glucose 157 mg/dL (74-106) Calcium Level 9.3 mg/dL (8.7-10.4) Magnesium Level 2.0 mg/dL (1.6-2.6) Troponin I High Sensitivity 520 ng/L (</=54) Hemoglobin A1c 5.5 % A1C (<5.7) Total Bilirubin 1.8 mg/dL (0.2-1.0) Aspartate Amino Transferase (AST) 32 U/L (<34) Alanine Aminotransferase (ALT) 51 U/L (7-40) Alkaline Phosphatase 96 U/L (46-116) Total Protein 7.5 g/dL (5.7-8.2) Albumin 4.6 g/dL (3.2-4.8) Test 01/13/25 01:00 01/12/25 13:50 01/12/25 10:23 01/12/25 07:19 Urine Color Yellow (Yellow) Urine Clarity Clear (Clear) Urine pH 6.0 (5.0-9.0) Urine Specific [place] 1.026 (1.001-1.035) Urine Protein 2+ (Negative) Urine Ketones 1+ (Negative) Urine Blood Negative /uL (Negative) Urine Nitrite Negative (Negative) Urine Bilirubin Negative (Negative) Urine Urobilinogen Normal mg/dL (Negative) Urine Leukocyte Esterase 1+ /uL (Negative) Urine RBC 2 /hpf (0 - 3) Urine Microscopic WBC 5 /HPF (0-3) Urine Squamous Epithelial Cells None seen /hpf (<5) Urine Bacteria None seen /hpf (None Seen) Urine Glucose Normal mg/dL (Normal) Urine Mucus Few (None Seen) Urine Opiates Screen Neg (NEGATIVE) Urine Fentanyl Screen Neg (NEGATIVE) Urine Barbiturates Screen Neg (NEGATIVE) Urine Phencyclidine Screen Neg (NEGATIVE) Urine Amphetamines Screen Neg (NEGATIVE) Urine Benzodiazepines Screen Neg (NEGATIVE) Urine Cocaine Screen Neg (NEGATIVE) Urine Cannabinoids Screen Pos (NEGATIVE) Blood Gas Specimen Type Arterial Blood Gas Sample Site Right radial Blood Gas Patient Temperature 37.0 Arterial Blood Date Drawn [id number] Arterial Blood pH 7.524 (7.350-7.450) Arterial Blood Partial Pressure CO2 28.8 mmHg (35.0-48.0) Arterial Blood Partial Pressure O2 119.7 mmHg (83.0-108.0) Arterial Blood HCO3 23.2 mmol/L (21.0-28.0) Arterial Blood Oxygen Saturation 97.9 % (94.0-98.0) Arterial Blood Base Excess 1.7 mmol/L (-2.0-3.0) Arterial Blood Oxyhemoglobin 96.8 % (94.0-98.0) Arterial Blood Carboxyhemoglobin 1.0 % (0.5-1.5) Arterial Blood Methemoglobin 0.1 % (0.0-1.5) Reinaldo Test Yes Blood Gas Total Hemoglobin 16.10 g/dL (13.5-17.5) Blood Gas Liter Flow 50.00 Blood Gas Modality High flow Blood Gas Spontaneous Rate 28 FiO2 % 50.0 Lactic Acid Level 3.4 mmol/L (0.4-2.0) Direct Bilirubin 0.3 mg/dL (<0.3) Test 01/12/25 05:20 01/12/25 02:30 01/12/25 02:08 01/12/25 02:03 C-Reactive Protein High Sensitivity 0.33 mg/dL (<1.0) Thyroid Stimulating Hormone (TSH) 0.67 uIU/mL (0.55-4.78) Influenza Type A Antigen Negative (Negative) Influenza Type B Antigen Negative (Negative) SARS-CoV-2 Antigen (Rapid) Negative (NEGATIVE) Prothrombin Time 11.2 sec (9.3-11.8) Prothrombin Time INR 1.06 (0.9-1.15) D-Dimer, Quantitative 0.61 mg/L FEU (0.0-0.49) B-Type Natriuretic Peptide 570.05 pg/mL (0-100) Plasma/Serum Blood Alcohol < 3.0 mg/dL (<10) Test 01/12/25 01:18 Blood Gas Set Respiration Rate 12.0 Blood Gas Spontaneous Tidal Volume 620 Blood Gas EPAP 6 Blood Gas IPAP 12 Bl Gas Inspiratory/Expiratory Ratio 1:2 Other Laboratory Tests 01/14/25 05:48 Brief Hx & Hospital Course: see dictated note Condition at Discharge: Fair Final Diagnosis/Problems List chf Discharge Disposition: Acute Care Facility Discharge Instruct/Medications Diet: Cardiac 2g Na,low cholest Activity: No Restrictions, As Tolerated Follow Up/Referral: fu with roy Medications: per sep Discharge Statement: "Patient was advised to return to the ER or call 911 if any headaches, dizziness, shortness of breath, chest pain, abdominal pain, bleeding, fevers, or worsening of medical condition. Patient was counseled about treatment plan, medications, possible side effects, patientverbalized understanding. All questions were answered to the best of my ability. This discharge took greater then 30 minutes in planning, reviewing documentation, counseling the patient, and discussing with other team members." ASSESSMENT ASSESSMENT Assessment chf Date of Service: Jan 14, 2025 Billing Provider: CHARBEL AMEZCUA MD Common Visit Codes: 48004-HPG/OBS DISCH DAY >30min CHARBEL AMEZCUA MD Jan 14, 2025 13:10
--- NOTE | 2025-01-14 13:24 | DVHDS ---
DATE OF DISCHARGE: 01/14/2025 TRANSFER SUMMARY HISTORY OF PRESENT ILLNESS: The patient is a 74-year-old gentleman who was admitted with a history of increasing shortness of breath requiring use of high-flow oxygen and has history of COPD, CHF, atrial fibrillation, hyperlipidemia, and hypertension. HOSPITAL COURSE: The patient was noted to be in congestive heart failure with an elevated blood pressure of 194/132. The patient was placed on intravenous Lasix along with high-flow oxygen. Troponin levels were elevated to 581. The patient was seen in cardiology consult by Dr. Cotto. White count was elevated to 19,000. The patient was also placed on antibiotics. The patient's echocardiogram showed an ejection fraction of 20% with severe global hypokinesis. He will now be transferred to [place] for further management. FINAL DIAGNOSES: * Hypertensive emergency. * Acute on chronic systolic heart failure. * Sepsis with likely pneumonia. * Acute respiratory failure. * COPD exacerbation. * Diabetes mellitus. * Non-STEMI. * Atrial fibrillation with secondary hypercoagulable state. Time spent in discharge planning and review of plan with the patient and nursing was 39 minutes. MD JACKIE Fernandez/HARRIET TID: [id number] RECEIPT: [id number]
--- NOTE | 2025-01-14 15:32 | DVHPNRES ---
Progress Note Date Seen: Jan 14, 2025 Resident Creating Document: MEME APARICIO RESIDENT Medical Necessity Reason Pt with a Central, PICC or Fol: No Subjective Review of Systems Reports improvement in symptoms, however, continues to have dyspnea Functional Class III Objective vital signs Vital Sign Date Time Temp Pulse Resp B/P (MAP) Pulse Ox O2 Delivery O2 Flow Rate FiO2 01/14/25 13:06 78 18 99 01/14/25 13:00 Room Air* 0 21 01/14/25 11:32 135/91 01/14/25 09:00 98.6 98.6 Total Intake and Output 01/13/25 01/13/25 01/14/25 15:00 23:00 07:00 Intake Total 1120 ml 800 ml Balance 1120 ml 800 ml medications Current Medications Medications Dose Ordered Sig/Mckayla Route Start Time Stop Time Status Last Admin Dose Admin Dextrose 50 ml PRN PRN IV 01/12/25 05:15 Cancel Dextrose 50 ml PRN PRN IV 01/12/25 05:15 Cancel Atorvastatin Calcium 40 mg HS PO 01/12/25 22:00 01/13/25 22:00 40 MG Amiodarone HCl 200 mg DAILY PO 01/12/25 10:00 01/14/25 10:31 200 MG Carvedilol 12.5 mg Q12HR PO 01/12/25 10:00 01/14/25 10:32 12.5 MG Ipratropium [place] 0.5 mg Q6HPRN PRN NEB 01/12/25 05:30 01/14/25 13:00 0.5 MG Diagnostic Test (Pha) 1 strip ACHS 01/12/25 07:00 01/14/25 12:05 1 STRIP Insulin Human Regular ACHS SC 01/12/25 07:00 01/14/25 13:20 2 UNITS Dextrose 50 ml UD PRN IV 01/12/25 05:30 Acetaminophen/ Hydrocodone Bitart 1 tab Q4HP PRN PO 01/12/25 05:30 01/13/25 04:16 1 TAB Ondansetron HCl 4 mg Q4HP PRN IV 01/12/25 05:30 Acetaminophen 650 mg Q6HP PRN PO 01/12/25 05:30 Nitroglycerin 0.4 mg Q5MINP PRN SL 01/12/25 05:30 Morphine Sulfate 2 mg Q30M PRN IV 01/12/25 05:30 Apixaban 5 mg BID PO 01/12/25 10:00 01/14/25 10:30 5 MG Levalbuterol HCl 0.625 mg Q6HR NEB 01/12/25 12:00 01/14/25 13:00 0.625 MG Patient Own Medication 1 tab DAILY PO 01/12/25 10:00 UNV Lisinopril 40 mg DAILY PO 01/13/25 10:00 01/14/25 10:30 40 MG Doxycycline Hyclate 100 ml @ 50 mls/hr Q12H IV 01/12/25 11:15 01/14/25 12:05 50 MLS/HR Labetalol HCl 10 mg Q4HP PRN IV 01/12/25 12:15 Hold Furosemide 40 mg DAILY PO 01/14/25 10:00 01/14/25 10:32 40 MG Potassium Chloride 20 meq DAILY PO 01/14/25 10:00 01/14/25 10:30 20 MEQ Diltiazem HCl 120 mg DAILY PO 01/14/25 10:00 01/14/25 10:33 120 MG Montelukast Sodium 10 mg HS PO 01/13/25 22:00 01/13/25 22:00 10 MG Examination General Appearance: Cooperative. Well developed. Well nourished. Head Exam: Normal inspection Neck Exam: Normal inspection. Non-tender. Normal alignment Pulmonary/Respiratory: Chest non-tender. Decreased bilateral breath sounds, no wheezing. Trace crackles Cardiovascular/Chest: Regular rate and rhythm. No murmurs. Peripheral Pulses: 2+ Radial (R). 2+ Radial (L). 2+ Pedal (R). 2+ Pedal (L) Abdominal Exam: Normal bowel sounds. Soft. normal abdomen, no visible veins, Nontender. No hepatospenomegaly. No masses Ankle Exam: Negative ankle edema Lower extremities: Negative lower extremity edema Neuro/Mental Status: A&O x4. Coherent. Trace tremor noted in right hand Thoughts/Psych: Normal thought pattern. Appropriate mood and affect. Good judgement and insight Skin Exam: Normal inspection. Normal color. Warm. Dry laboratory and microbiology Laboratory Tests 01/14/25 05:48 Test 01/14/25 05:48 Range/Units Serum Glucose 157 H 74-106 mg/dL Microbiology Date/Time Source Procedure Growth Status 01/12/25 13:50 Voided Urine Urine Culture - Final Complete 01/12/25 02:08 Blood Blood Culture - Preliminary NO GROWTH AFTER 48 HOURS OF INCUBATION. Resulted Labs and/or images reviewed: Labs reviewed by me, Image(s) reviewed by me Problem List/Assessment/Plan Problem List/Assessment/Plan Acute hypoxic respiratory failure COPD exacerbation Acute on chronic congestive heart failure, systolic with ejection fraction 20% Pulmonary hypertension Sepsis possibly secondary to pneumonia Lactic acidosis due to above NSTEMI type 2 due to above Atrial fibrillation with secondary hypercoagulable state, on Eliquis 5 mg b.i.d. Severe mitral regurgitation Essential hypertension Prolonged QTC 546 Plan: Cautious IV hydration Hold IV furosemide, continue home dose po furosemide Continue Eliquis Continue amiodarone Antibiotics Patient will benefit from DAMIEN once stabilized given severe mitral regurgitation noted on echocardiogram from September 2023 Avoid QT prolonging drugs Rest of the plan as per course of hospitalization Thank you so much for the opportunity to consult on your patient. Cardiology team will follow the patient. In case of any questions or concerns please feel free to reach out. Plan discussed with Dr. Crocker Plan discussed with: Patient, Other (RN) Visit Coding Cardiology RES Date of Service: Jan 14, 2025 Billing Provider: YAIR ORTIZ Sr., MD Cardiology Common Codes: [id number] HOSP CARE(MEME Haji RESIDENT Jan 14, 2025 15:32
== END 2025-01-14 22:36 | disposition short-term general hospital (02) | DRG 871 ==
LOC: ER 01:10 → EDBD 01:10 → OVERFLOW 05:24 → TELE-EAST 01-13 13:14
PROVIDERS: ADMIT Internal Medicine; ATTEND Internal Medicine
PROC: 5A09357 Assistance with Respiratory Ventilation, Less than 24 Consecutive Hours, Continuous Positive Airway Pressure (ICD-10-PCS; principal; 2025-01-12)
PROC: 5A0935A Assistance with Respiratory Ventilation, Less than 24 Consecutive Hours, High Flow/Velocity Cannula (ICD-10-PCS; 2025-01-12)
DX: A41.9 Sepsis, unspecified organism (principal); I21.4 Non-ST elevation (NSTEMI) myocardial infarction; I50.23 Acute on chronic systolic (congestive) heart failure; J15.69 Pneumonia due to other Gram-negative bacteria; J15.9 Unspecified bacterial pneumonia; J96.01 Acute respiratory failure with hypoxia; J44.1 Chronic obstructive pulmonary disease with (acute) exacerbation; J44.0 Chronic obstructive pulmonary disease with (acute) lower respiratory infection; E87.20 Acidosis, unspecified; I16.1 Hypertensive emergency; D68.69 Other thrombophilia; I11.0 Hypertensive heart disease with heart failure; Z20.822 Contact with and (suspected) exposure to COVID-19; E78.5 Hyperlipidemia, unspecified; I48.91 Unspecified atrial fibrillation; I34.0 Nonrheumatic mitral (valve) insufficiency; I27.20 Pulmonary hypertension, unspecified; E11.65 Type 2 diabetes mellitus with hyperglycemia; Z79.899 Other long term (current) drug therapy; Z88.8 Allergy status to other drugs, medicaments and biological substances; Z82.3 Family history of stroke; Z80.0 Family history of malignant neoplasm of digestive organs; Z83.3 Family history of diabetes mellitus; Z79.01 Long term (current) use of anticoagulants; Z79.84 Long term (current) use of oral hypoglycemic drugs
CPT/HCPCS: 36415; 36600; 71045; 80048; 80053; 80076; 80307; 80320; 81001; 82805; 82962; 83036; 83605; 83735; 83880; 84443; 84484; 85025; 85379; 85610; 86141; 87040; 87086; 87426; 87804; 93005; 93306; 94640; 94660; 96365; 96375; 99291; G0378; J1815; J2543

== ENCOUNTER 2025-03-27 00:16 | Inpatient (IN) | payer OTHER ==
[~2025-03-27] VITALS: Ht 177.8 cm; Wt 86.5 kg
[2025-03-27] VITALS (13 sets, daily range): BP systolic 139–145; BP diastolic 81–89; PULSE 60–83; RESP 16–20; TEMP 97.1–98; O2SAT 94–98
--- NOTE | 2025-03-27 00:35 | ED.PDOC ---
SOB-HPI HPI Comments 74 year old male who came to ER via EMS for shortness of breath. Patient does have history of hypertension, diabetes, AFib, CHF, COPD, he has been cough with shortness of breath since 10:00 p.m., progressively worsening left-sided chest tightness. Breathing treatments taken at home was over no relief of the pain/shortness a breath. Saturating 86% on room air on scene. Patient was placed on CPAP in brought in the ER for further evaluation and management Chief Complaint: Shortness of Breath Time Seen by MD: 00:34 Primary Care Provider: GARLAND Cooper notes: Resource Teacher Notes Information Source: Patient Mode of Arrival: EMS Severity: Moderate Timing: Hours Duration: Since onset Context: At Rest, With Light Exertion History of: COPD, CHF Prehospital treatment: Breathing Tx, C-Pap, Oxygen Associated Signs and Symptoms: Cough, Chest Pain Quality: Tightness Radiation: No Radiation Location: Chest (R), Chest (L) If cough with SOB: Productive Past Medical History PAST MEDICAL HISTORY: AFIB, Asthma, CHF, COPD, DM, High Lipids, HTN, PE Surgical History: Appendectomy Family History Family History: Reviewed,noncontributory to illness Social History Smoker: Non-Smoker Alcohol: Denies ETOH Use Drugs: Denies Drug Use Lives In: Home Constitutional: reports: diaphoresis, fatigue, weakness; denies: chills, fever, malaise, sweats, others EENTM: denies: blurred vision, double vision, ear bleeding, ear discharge, ear drainage, ear pain, ear ringing, eye pain, eye redness, hearing loss, mouth pain, mouth swelling, nasal discharge, nose bleeding, nose congestion, nose pain, photophobia, tearing, throat pain, throat swelling, voice changes, others Respiratory: reports: cough, SOB at rest, shortness of breath, SOB with excertion, wheezing; denies: hemoptysis, orthopnea, stridor, others Cardiovascular: reports: chest pain, diaphoresis; denies: dizzy spells, Dyspnea on exertion, edema, irregular heart beat, left arm pain, lightheadedness, palpitations, PND, syncope, others Gastrointestinal: denies: abdomen distended, abdominal pain, blood streaked bowels, constipated, diarrhea, dysphagia, difficulty swallowing, hematemesis, melena, nausea, poor appetite, poor fluid intake, rectal bleeding, rectal pain, vomiting, others Genitourinary: denies: burning, dysuria, flank pain, frequency, hematuria, incontinence, penile discharge, penile sore, pain, testicle pain, testicle swelling, urgency, others Neurological: denies: dizziness, fainting, headache, left sided numbness, left sided weakness, numbness, paresthesia, pre-existing deficit, right sided numbness, right sided weakness, seizure, speech problems, tingling, tremors, weakness, others Musculoskeletal: denies: back pain, gout, joint pain, joint swelling, muscle pain, muscle stiffness, neck pain, others Integumetry: denies: bruises, change in color, change in hair/nails, dryness, laceration, lesions, lumps, rash, wounds, others Allergic/Immunocompromised: denies: Difficulty Healing, Frequent Infections, Hives, Itching, others Hematologic/Lymphatic: denies: anemia, blood clots, easy bleeding, easy bruising, swollen glands, others Endocrine: denies: excessive hunger, excessive sweating, excessive thirst, excessive urination, flushing, intolerance to cold, intolerance to heat, unexplained weight gain, unexplained weight loss, others Psychiatric: denies: anxiety, bipolar disorder, depression, hopeless, panic disorder, schizophrenia, sleepless, suicidal, others Physical Exam General Appearance: No Apparent Distress, Normal HEENT: Normal ENT Inspection, Pharynx Normal, TMs Normal Neck: Full Range of Motion, Non-Tender, Normal, Normal Inspection Respiratory: Chest Non-Tender, Lungs Clear, No Accessory Muscle Use, No Respiratory Distress, Normal Breath Sounds Cardiovascular: No Edema, No JVD, No Murmur, No Gallop, Normal Peripheral Pulses, Regular Rate/Rhythm Breast Exam: Deferred Gastrointestinal: No Organomegaly, Non Tender, No Pulsatile Mass, Normal Bowel Sounds, Soft Genitalia: Deferred Pelvic: Deferred Rectal: Deferred Extremities: No calf tenderness, Normal capillary refill, Normal inspection, Normal range of motion, Non-tender, No pedal edema Musculoskeletal : Apperance: Normal Neurologic: Alert, exchange trouble shooter II-XII nml as Tested, No Motor Deficits, Normal Affect, Normal Mood, No Sensory Deficits Cerebellar Function: Normal Reflexes: Normal Skin: Dry, Normal Color, Warm Lymphatic: No Adenopathy Was a procedure done? Was a procedure done?: No Differential Dx Differential Diagnosis: Asthma, Bronchitis, CHF, COPD, Pneumonia, Respiratory Distress X-Ray, Labs, Meds, VS Vital Signs Date Time Temp Pulse Resp B/P (MAP) Pulse Ox O2 Delivery O2 Flow Rate FiO2 03/27/25 01:18 90 14 177/106 (129) 96 03/27/25 01:17 88 32 178/121 (140) 94 03/27/25 01:11 165/105 03/27/25 00:25 90 178/121 Facial BiPAP Mask 50 03/27/25 00:21 95 34 190/110 96 03/27/25 00:20 89 03/27/25 00:19 90 Lab Test 03/27/25 00:35 Range/Units White Blood Count 13.5 H 4.4-10.8 10^3/uL Red Blood Count 5.01 4.5-5.90 10^6/uL Hemoglobin 15.5 13.5-17.5 g/dL Hematocrit 45.6 41.0-53.0 % Mean Corpuscular Volume 91.1 80.0-100.0 fL Mean Corpuscular Hemoglobin 30.9 28.0-32.0 pg Mean Corpuscular Hemoglobin Concent 34.0 32.0-36.0 g/dL Red Cell Distribution Width 14.2 11.8-14.3 % Platelet Count 324 140-450 10^3/uL Mean Platelet Volume 7.4 6.9-10.8 fL Neutrophils (%) (Auto) 71.9 37.0-80.0 % Lymphocytes (%) (Auto) 19.4 10.0-50.0 % Monocytes (%) (Auto) 5.9 0.0-12.0 % Eosinophils (%) (Auto) 1.9 0.0-7.0 % Basophils (%) (Auto) 0.9 0.0-2.0 % Neutrophils # (Auto) 9.7 H 1.6-8.6 10 ^3/uL Lymphocytes # (Auto) 2.6 0.4-5.4 10 ^3/uL Monocytes # (Auto) 0.8 0-1.3 10 ^3/uL Eosinophils # (Auto) 0.3 0-0.8 10 ^3/uL Basophils # (Auto) 0.1 0-0.2 10 ^3/uL Nucleated Red Blood Cells 0.1 % Prothrombin Time 11.4 9.3-11.8 sec Prothrombin Time INR 1.08 0.9-1.15 Activated Partial Thromboplast Time 28.5 24.5-34.5 SEC Sodium Level 138 136-145 mmol/L Potassium Level 3.8 3.5-5.1 mmol/L Chloride Level 107 98-107 mmol/L Carbon Dioxide Level 20 20-31 mmol/L Anion Gap 11 5-15 Blood Urea Nitrogen 13 9-23 mg/dL Creatinine 0.85 0.700-1.30 mg/dL Glomerular Filtration Rate Calc 92 >90 mL/min BUN/Creatinine Ratio 15.3 10.0-20.0 Serum Glucose 266 H 74-106 mg/dL Calcium Level 9.4 8.7-10.4 mg/dL Magnesium Level 2.3 1.6-2.6 mg/dL Total Bilirubin 1.2 H 0.2-1.0 mg/dL Aspartate Amino Transferase (AST) 126 H 13-40 U/L Alanine Aminotransferase (ALT) 200 H 7-40 U/L Alkaline Phosphatase 104 46-116 U/L Troponin I High Sensitivity 11 </=54 ng/L B-Type Natriuretic Peptide 730.52 0-100 pg/mL Total Protein 8.5 H 5.7-8.2 g/dL Albumin 5.2 H 3.2-4.8 g/dL Current Medications Medications (Trade) Dose Ordered Sig/Mckayla Route Start Time Stop Time Status Last Admin Aspirin 81 mg ONCE ONCE PO 03/27/25 00:30 03/27/25 00:31 DC 03/27/25 01:11 Furosemide (Lasix Injection) 40 mg ONCE ONCE IV 03/27/25 00:30 03/27/25 00:31 DC 03/27/25 01:11 Time of 1ST Reevaluation: 00:32 Reevaluation 1ST: Unchanged Patient Education/Counseling: Diagnosis, Treatment Family Education/Counseling: No Family Present SEPSIS Sepsis Screen Date sepsis recognized/suspect: Mar 27, 2025 Time Sepsis recognized/suspect: 001 Recent Procedure: No On Antibiotic Therapy: No Respiratory Rate >20: Yes (34) Heart Rate >90: Yes (95) Temp<36 C (96.8 F) or >38.3 C: No SBP <90 or MAP <65 mmHG: No New Acute Mental Status Change: No Is the patient on CPAP, BIPAP,: Yes Physician Orders Electrocardigram (03/27/25 00:22) Electrocardigram (03/27/25 03:22) Chest Portable (03/27/25 00:24) Troponin-I Hs (03/27/25 01:24) Troponin-I Hs (03/27/25 03:24) BIPAP (03/27/25 00:28) Venous Blood Gas (03/27/25 00:29) BIPAP (03/27/25 00:29) Ceftriaxone Ivpb Rocephin (03/27/25 01:45) Azithromycin 500mg/ 250ml (Zithromax 50 (03/27/25 01:45) Vital Signs Date Time Temp Pulse Resp B/P (MAP) Pulse Ox O2 Delivery O2 Flow Rate FiO2 03/27/25 01:18 90 14 177/106 (129) 96 03/27/25 01:17 88 32 178/121 (140) 94 03/27/25 01:11 165/105 03/27/25 00:25 90 178/121 Facial BiPAP Mask 50 03/27/25 00:21 95 34 190/110 96 03/27/25 00:20 89 03/27/25 00:19 90 Laboratory Tests Test 03/27/25 00:35 White Blood Count 13.5 10^3/uL (4.4-10.8) H Medications Medications Dose Ordered Sig/Mckayla Route Start Time Stop Time Status Last Admin Dose Admin Aspirin 81 mg ONCE ONCE PO 03/27/25 00:30 03/27/25 00:31 DC 03/27/25 01:11 Furosemide 40 mg ONCE ONCE IV 03/27/25 00:30 03/27/25 00:31 DC 03/27/25 01:11 Departure 1 Departure Time of Disposition: 01:39 Impression: Primary Impression: Hypoxic respiratory failure Additional Impressions: CHF exacerbation Pneumonitis Disposition: ADMITTED INPATIENT Admit to: Tele Condition: Critical Comments 74-year-old male presents by EMS on BiPAP. Patient was hypoxic and severely shortness of breath. Lab results reviewed. White blood cell count elevated 13.5. BNP high. Chest x-ray shows pulmonary edema picture with possible infiltrates as well. Patient was given Lasix and kept on BiPAP and was given IV Rocephin and azithromycin antibiotics. Patient will need to be admitted for supportive care and further workup of congestive heart failure and respiratory failure and pneumonitis Critical Care Note Critical Care Time?: Yes (35 min-critical care time only) Critical care comment: Shortness of breath Total critical care time: Approximately 36 minutes Due to a high probability of clinically significant, life threatening deterioration, the patient required my highest level of preparedness to intervene emergently and I personally spent this critical care time directly and personally managing the patient. This critical care time included obtaining a history; examining the patient; pulse oximetry; ordering and review of studies; arranging urgent treatment with development of a management plan; evaluation of patient's response to treatment; frequent reassessment; and, discussions with other providers. This critical care time was performed to assess and manage the high probability of imminent, life-threatening deterioration that could result in multi-organ failure. It was exclusive of separately billable procedures and treating other patients. Stability Stability form required: No Heart Score Heart Score: Heart Score Response (Comments) Value History Moderate Suspicious 1 EKG Repolarization Disturb 1 Age >65 2 Risk Factors >3 or Hx ASHD 2 Troponin Normal limit 0 Total 6 I personally scribed for VALDO BAEZ MD ([email or web address]) on 03/27/25 at 00:35. Electronically submitted by Tate Lucero ([facility]). VALDO BAEZ MD Mar 27, 2025 00:35
[2025-03-27 00:52] LABS: Hematocrit 45.6 % (41.0-53.0); Hemoglobin 15.5 g/dL (13.5-17.5); Mean Corpuscular Hemoglobin 30.9 pg (28.0-32.0); Mean Corpuscular Volume 91.1 fL (80.0-100.0); Nucleated Red Blood Cells % 0.1 %
[2025-03-27 01:11] LABS: Alkaline Phosphatase 104 U/L (46-116); Anion Gap 11 (5-15); BUN/Creatinine Ratio 15.3 (10.0-20.0); Bilirubin, Total 1.2 mg/dL (0.2-1.0); Blood Urea Nitrogen 13 mg/dL (9-23); Calcium 9.4 mg/dL (8.7-10.4); Carbon Dioxide 20 mmol/L (20-31); Chloride 107 mmol/L (98-107); Magnesium 2.3 mg/dL (1.6-2.6); Potassium 3.8 mmol/L (3.5-5.1); Sodium 138 mmol/L (136-145)
[2025-03-27] MEDS: FUROSEMIDE 40 MG/4 ML VIAL IV ONE ×2 (01:11→09:40)
[2025-03-27 01:15] LABS: INR 1.08 (0.9-1.15); Partial Thromboplastin Time 28.5 SEC (24.5-34.5); Prothrombin Time 11.4 sec (9.3-11.8)
[2025-03-27 01:16] LABS: Alanine Aminotransferase 200 U/L (7-40); Albumin 5.2 g/dL (3.2-4.8); Glucose 266 mg/dL (74-106); Total Protein 8.5 g/dL (5.7-8.2)
--- NOTE | 2025-03-27 01:32 | DVH ---
CHEST RADIOGRAPH Indication: SOB Technique: Single frontal view of the chest was obtained COMPARISON: XY CHEST PORTABLE on DOS: 01/13/25, XY CHEST XRAY 1 VIEW on DOS: 01/12/25, CT CHEST WITHOUT CONTRAST on DOS: 01/21/24, XY CHEST PORTABLE on DOS: 01/19/24, XY CHEST PORTABLE on DOS: 11/17/23 FINDINGS: Lines and Tubes: None Lungs: Diffuse multifocal bilateral pulmonary airspace disease, predominating within the lung bases. Small bilateral pleural effusions. No pneumothorax. Cardiomediastinal contours: Unremarkable. Atherosclerotic vascular calcifications. Bones: Unremarkable IMPRESSION: 1. Diffuse multifocal bilateral pulmonary airspace disease, predominating within the lung bases. 2. Small bilateral pleural effusions.
[2025-03-27] MEDS: AZITHROMYCIN 500MG/ 250ML 250 ML IV ONE (03:00)
--- NOTE | 2025-03-27 03:52 | ECG ---
[facility] Test Date: 2025-03-27 Test Time: 00:19:14 Pat Name: PERLA MCGEE Department: Room: 0215T Gender: M Stone Sawyer: GAVIN : 1950 Requested By: EMERGENCY EMERGENCY Order Number: [id number] Reading MD: Artemio Cotto Measurements Intervals Manning Rate: 90 P: 0 NE: 0 QRS: 68 QRSD: 113 T: 225 QT: 388 QTc: 475 Interpretive Statements Atrial fibrillation Paired ventricular premature complexes Borderline intraventricular conduction delay Nonspecific repol abnormality, diffuse leads Minimal ST elevation, anterior leads Baseline wander in lead(s) V2 Electronically Signed On 03-30-2025 10:23:11 PDT by Artemio Cotto Please click the below link to view image of tracing.
[2025-03-27] MEDS ORDERED: ONDANSETRON HCL 4 MG/2 ML VIAL IV PRN (08:00)
[2025-03-27] MEDS ORDERED: NITROGLYCERIN 0.4 MG SL TAB SL PRN (08:00)
[2025-03-27] MEDS ORDERED: MORPHINE SULFATE INJ 2 MG/ml SYRG IV PRN (08:00)
[2025-03-27] MEDS ORDERED: HYDROcodone-ACET 5/325MG TAB PO PRN (08:00)
[2025-03-27] MEDS ORDERED: DILT240C49 PO (08:21)
--- NOTE | 2025-03-27 08:25 | DVHHP2 ---
History of Present Illness Reason for Visit: Shortness of breath History of Present Illness Dawson Willis is a 74-year-old male with past medical history of hypertension, diabetes, hyperlipidemia, atrial fibrillation, CHF, COPD, and asthma, who came to the hospital for shortness of breath. Patient states his shortness of breath began last night about 2224. He states it came on suddenly and that he has had pneumonia in the past. Cardiovascular: AFIB, CHF, HTN, hyperipidemia, Other (PTCA with cardiac stent) Pulmonary: Asthma, COPD Endocrine: Diabetes Past Surgical History: Appendectomy, Other (right hip, PTCA with cardiac stent), Tonsillectomy Smoke: No ALCOHOL: none Drugs: None Lives: Alone Domestic Violence: Neg Review of Systems Constitutional: No: Fever, Chills, Sweats, Weakness, Malaise, Other Eyes: No: Pain, Vision change, Conjunctivae inflammation, Eyelid inflammation, Other, Redness ENT: No: Ear pain, Ear discharge, Nose pain, Nose discharge, Nose congestion, Mouth pain, Mouth swelling, Throat pain, Throat swelling, Other Respiratory: Shortness of breath, SOB with excertion, Wheezing; No: Cough, Dry, Hemoptysis, Pleuritic Pain, Sputum, Wheezing, Other Cardiovascular: No: Chest Pain, Palpitations, Orthopnea, Paroxysmal Noc. Dyspnea, Edema, Lt Headedness, Other Gastrointestinal: No: Nausea, Vomiting, Abdominal Pain, Diarrhea, Constipation, Melena, Hematochezia, Other Genitourinary: No Dysuria, No Frequency, No Incontinence, No Hematuria, No Retention, No Other Musculoskeletal: No: other, neck pain, shoulder pain, arm pain, back pain, hand pain, leg pain, foot pain Skin: No: Rash, Lesions, Jaundice, Bruising, Other Neurological: No: Weakness, Numbness, Incoordination, Change in speech, Confusion, Seizures, Other Allergies: Coded Allergies: Metoprolol (Verified Allergy, Severe, RASH, 09/28/19) Medications Current Medications Medications Dose Ordered Sig/Mckayla Route Start Time Stop Time Status Last Admin Dose Admin Acetaminophen/ Hydrocodone Bitart 1 tab Q4HP PRN PO 03/27/25 08:00 UNV Exam Vital Signs Vital Signs Date Time Temp Pulse Resp B/P (MAP) Pulse Ox O2 Delivery O2 Flow Rate FiO2 03/27/25 06:00 71 30 136/86 (103) 95 03/27/25 04:02 Facial BiPAP Mask 40 03/27/25 04:00 97.6 97.6 General Appearance: Alert, Oriented X3, Cooperative HEENT: Atraumatic, PERRLA, EOMI Respiratory: Other (Diminished breath sounds, wheezing) Cardiovascular: Normal S1, Normal S2, No murmurs Abdominal: Normal bowel sounds, Soft, No tenderness, No hepatospenomegaly Extremities: No clubbing, No cyanosis, No edema, Normal pulses Skin: No rashes, No breakdown, No significant lesion Neuro: Normal gait, Normal speech, Strength at 5/5 X4 ext Psych/Mental Status: Mental status NL, Mood NL Labs/Xrays Labs Test 03/27/25 03:15 03/27/25 00:35 03/27/25 00:30 Range/Units Troponin I High Sensitivity 24 </=54 ng/L White Blood Count 13.5 H 4.4-10.8 10^3/uL Red Blood Count 5.01 4.5-5.90 10^6/uL Hemoglobin 15.5 13.5-17.5 g/dL Hematocrit 45.6 41.0-53.0 % Mean Corpuscular Volume 91.1 80.0-100.0 fL Mean Corpuscular Hemoglobin 30.9 28.0-32.0 pg Mean Corpuscular Hemoglobin Concent 34.0 32.0-36.0 g/dL Red Cell Distribution Width 14.2 11.8-14.3 % Platelet Count 324 140-450 10^3/uL Mean Platelet Volume 7.4 6.9-10.8 fL Neutrophils (%) (Auto) 71.9 37.0-80.0 % Lymphocytes (%) (Auto) 19.4 10.0-50.0 % Monocytes (%) (Auto) 5.9 0.0-12.0 % Eosinophils (%) (Auto) 1.9 0.0-7.0 % Basophils (%) (Auto) 0.9 0.0-2.0 % Neutrophils # (Auto) 9.7 H 1.6-8.6 10 ^3/uL Lymphocytes # (Auto) 2.6 0.4-5.4 10 ^3/uL Monocytes # (Auto) 0.8 0-1.3 10 ^3/uL Eosinophils # (Auto) 0.3 0-0.8 10 ^3/uL Basophils # (Auto) 0.1 0-0.2 10 ^3/uL Nucleated Red Blood Cells 0.1 % Prothrombin Time 11.4 9.3-11.8 sec Prothrombin Time INR 1.08 0.9-1.15 Activated Partial Thromboplast Time 28.5 24.5-34.5 SEC Sodium Level 138 136-145 mmol/L Potassium Level 3.8 3.5-5.1 mmol/L Chloride Level 107 98-107 mmol/L Carbon Dioxide Level 20 20-31 mmol/L Anion Gap 11 5-15 Blood Urea Nitrogen 13 9-23 mg/dL Creatinine 0.85 0.700-1.30 mg/dL Glomerular Filtration Rate Calc 92 >90 mL/min BUN/Creatinine Ratio 15.3 10.0-20.0 Serum Glucose 266 H 74-106 mg/dL Calcium Level 9.4 8.7-10.4 mg/dL Magnesium Level 2.3 1.6-2.6 mg/dL Total Bilirubin 1.2 H 0.2-1.0 mg/dL Aspartate Amino Transferase (AST) 126 H 13-40 U/L Alanine Aminotransferase (ALT) 200 H 7-40 U/L Alkaline Phosphatase 104 46-116 U/L B-Type Natriuretic Peptide 730.52 0-100 pg/mL Total Protein 8.5 H 5.7-8.2 g/dL Albumin 5.2 H 3.2-4.8 g/dL Blood Gas Specimen Type Venous Blood Gas Sample Site Vbg - n/a Blood Gas Patient Temperature 37.0 Arterial Blood Date Drawn [id number] Reinaldo Test N/a Venous Blood pH 7.282 L 7.320-7.430 Venous Blood pCO2 at Patient Temp 43.7 38.0-54.0 mmHg Venous Blood pO2 at Patient Temp 72.9 H 23.0-48.0 mmHg Venous Blood HCO3 20.2 L 22.0-29.0 mmol/L Venous Blood Base Excess -6.4 L -2.0-3.0 mmol/L Blood Gas Set Respiration Rate 12.0 Blood Gas Modality Mask - bipap Blood Gas Spontaneous Rate 30 FiO2 % 50.0 Blood Gas EPAP 5 Blood Gas IPAP 12 CHEST RADIOGRAPH FINDINGS: Lines and Tubes: None Lungs: Diffuse multifocal bilateral pulmonary airspace disease, predominating within the lung bases. Small bilateral pleural effusions. No pneumothorax. Cardiomediastinal contours: Unremarkable. Atherosclerotic vascular calcifications. Bones: Unremarkable IMPRESSION: 1. Diffuse multifocal bilateral pulmonary airspace disease, predominating within the lung bases. 2. Small bilateral pleural effusions. SEPSIS Sepsis Screen Date sepsis recognized/suspect: Mar 27, 2025 Time Sepsis recognized/suspect: 138 Recent Procedure: No On Antibiotic Therapy: No Respiratory Rate >20: Yes Heart Rate >90: Yes Temp<36 C (96.8 F) or >38.3 C: No SBP <90 or MAP <65 mmHG: No New Acute Mental Status Change: No Is the patient on CPAP, BIPAP,: Yes Physician Orders Electrocardigram (03/27/25 03:22) Chest Portable (03/27/25 00:24) BIPAP (03/27/25 00:28) Venous Blood Gas (03/27/25 00:29) BIPAP (03/27/25 00:29) Admit (03/27/25 07:54) Code Status (03/27/25 07:54) Hydrocodone-Acet 5/325mg Tab (Gambier 32 (03/27/25 08:00) Ondansetron Hcl (Zofran) (03/27/25 08:00) Docusate Sodium Capsule (Colace Capsule) (03/27/25 08:00) Complete Blood Count (03/28/25 04:00) Comprehensive Metabolic Panel (03/28/25 04:00) Cardiac Diet-2gna,Lofat,Lochol (03/27/25 Breakfast) Condition: Critical (03/27/25 07:54) Acetaminophen Tablet (Tylenol Tablet) (03/27/25 08:00) Nitroglycerin Sublingual (Ntrostat Subli (03/27/25 08:00) Morphine Sulfate Injection (03/27/25 08:00) Stat Ekg For Chest Pain (03/27/25 07:54) Notify Of Changes From Base (03/27/25 07:54) Analog Ic Design Engineer For 24 Hours (03/27/25 07:54) Emergency Dysrhythmia Protocol (03/27/25 07:54) Rhythm Strips Once Every Shift (03/27/25 07:54) Oxygen By Nasal Cannula (03/27/25 07:54) Vital Signs Date Time Temp Pulse Resp B/P (MAP) Pulse Ox O2 Delivery O2 Flow Rate FiO2 03/27/25 06:00 71 30 136/86 (103) 95 03/27/25 04:02 85 162/96 Facial BiPAP Mask 40 03/27/25 04:00 97.6 79 30 142/89 (106) 95 97.6 03/27/25 04:00 79 03/27/25 03:00 95 Bi-Pap+ 50 50 03/27/25 03:00 97.6 94 24 162/96 (118) 95 97.6 03/27/25 02:20 91 159/101 40 03/27/25 02:14 99 38 164/111 (128) 97 03/27/25 01:18 90 14 177/106 (129) 96 03/27/25 01:17 88 32 178/121 (140) 94 03/27/25 01:11 165/105 03/27/25 00:25 90 178/121 Facial BiPAP Mask 50 03/27/25 00:24 94 Bi-Pap+ 50 50 03/27/25 00:21 95 34 190/110 96 03/27/25 00:20 89 03/27/25 00:19 90 Laboratory Tests Test 03/27/25 00:35 White Blood Count 13.5 10^3/uL (4.4-10.8) H Medications Medications Dose Ordered Sig/Mckayla Route Start Time Stop Time Status Last Admin Dose Admin Aspirin 81 mg ONCE ONCE PO 03/27/25 00:30 03/27/25 00:31 DC 03/27/25 01:11 81 MG Azithromycin 250 ml @ 125 mls/hr ONCE ONCE IV 03/27/25 01:45 03/27/25 03:45 DC 03/27/25 03:00 125 MLS/HR Ceftriaxone Sodium 50 ml @ 100 mls/hr ONCE ONCE IV 03/27/25 01:45 03/27/25 02:14 DC 03/27/25 02:22 100 MLS/HR Furosemide 40 mg ONCE ONCE IV 03/27/25 00:30 03/27/25 00:31 DC 03/27/25 01:11 40 MG Assessment/Plan Assessment/Plan Assessment: Pneumonia, CHF exacerbation, Hyperglycemia, Transaminitis, Hypertension, Hyperlipidemia, Diabetes, CHF, COPD, Plan: Admit to Tele, IV antibiotics, IV steroids, Breathing treatments, BiPAP as needed, Supplemental oxygen as needed, IV Lasix, A1c, Liver ultrasound, Home medications reconciled, Plan discussed with: Patient My Orders Orders - JAMMIE NAVARRETE Procedure Category Date Status Time Admit ADMIT 03/27/25 Transmitted 07:54 Code Status CODE 03/27/25 Transmitted 07:54 Hydrocodone-Acet PHA 03/27/25 Transmitted 5/325mg Tab (Gambier 08:00 Ondansetron Hcl [facility] 03/27/25 Transmitted (Zofran) 08:00 Docusate Sodium [facility] 03/27/25 Transmitted Capsule (Colace 08:00 Complete Blood Count LAB 03/28/25 Verified 04:00 Comprehensive LAB 03/28/25 Verified Metabolic Panel 04:00 Cardiac DIET 03/27/25 Transmitted Diet-2gna,Lofat,Lochol Breakfast Condition: Critical [facility] 03/27/25 Transmitted 07:54 Acetaminophen Tablet [facility] 03/27/25 Transmitted (Tylenol Tablet) 08:00 Nitroglycerin [facility] 03/27/25 Transmitted Sublingual (Ntrostat 08:00 Morphine Sulfate [facility] 03/27/25 Transmitted Injection 08:00 Stat Ekg For Chest [facility] 03/27/25 Transmitted Pain 07:54 Notify Md Of Changes [facility] 03/27/25 Transmitted From Base 07:54 Analog Ic Design Engineer For [facility] 03/27/25 Transmitted 24 Hours 07:54 Emergency Dysrhythmia [facility] 03/27/25 Transmitted Protocol 07:54 Rhythm Strips Once [facility] 03/27/25 Transmitted Every Shift 07:54 Oxygen By Nasal RT 03/27/25 Transmitted Cannula 07:54 Date of Service: Mar 27, 2025 Billing Provider: JAMMIE NAVARRETE Common Visit Codes: [id number] INP/OBS CARE (MOD) JAMMIE NAVARRETE Mar 27, 2025 08:25
[2025-03-27] MEDS: AMIODARONE HCL 200 MG TAB PO SCH (09:41)
[2025-03-27] MEDS: dilTIAZem 120MG ER CAP PO SCH (09:41)
[2025-03-27] MEDS: APIXABAN 5 MG TAB PO SCH (09:42)
[2025-03-27] MEDS: CARVEDILOL 12.5 MG TAB PO SCH (09:42)
[2025-03-27] MEDS: LISINOPRIL 20 MG TAB PO SCH (09:42)
--- NOTE | 2025-03-27 15:05 | DVH ---
INDICATION: elevated liver enzymes TECHNIQUE: Multiple real-time sonographic images of the abdomen were obtained. COMPARISON: None FINDINGS: Increased echogenicity to the hepatic parenchyma consistent with steatosis. The liver measu res 19.2 cm. No intrahepatic biliary ductal dilatation is noted. The gallbladder wall measures 0.26 cm and is unremarkable. 0.6 x 1.4 x 1.4 cm echogenic focus in the gallbladder consistent with gallstone. The common duct measures 0.64 cm and is unremarkable. No per icholecystic fluid is noted. Negative sonographic Wallis's sign The right kidney measures 10.6 cm. No hydronephrosis. The pancreas is not well visualized due to obscuration from bowel gas. The visualized portions of the IVC and aorta are grossly unremarkable. IMPRESSION: 1. Cholelithiasis. 2. Fatty infiltration of the liver. 3. Hepatomegaly.
[2025-03-27] MEDS: MONTELUKAST SODIUM 10 MG TAB PO SCH (16:55)
[2025-03-27] MEDS: ALBUTEROL SULF 2.5 MG/0.5ML(0.5%) NEB SOLN NEB SCH (19:11)
[2025-03-27] MEDS: IPRATROPIUM BROM 0.5 MG/2.5ML INH SOL NEB SCH (19:11)
[2025-03-27 21:21] LABS: Magnesium 1.9 mg/dL (1.6-2.6); Potassium 3.1 mmol/L (3.5-5.1)
[2025-03-27] MEDS ORDERED: ATORVASTATIN 20 MG TAB PO SCH (22:00)
--- NOTE | 2025-03-27 23:39 | DVHINCON2 ---
Date of service: Mar 27, 2025 Referring Physician Rosalie History of Present Illness This is a 74 year old male with a PMH of AFIB, Asthma, CHF, COPD, DM, High Lipids, HTN, PE who is brought in by EMS with c/oshortness of breath. Patient reports a cough with shortness of breath since 10:00 p.m., progressively worsening left-sided chest tightness. Patient took a breathing treatments at home without relief. Patient was placed on CPAP en route. WBC 13.5, GLUC 266, AST 126, ALT 200. Chest x-ray shows diffuse multifocal bilateral pulmonary airspace disease, predominating within the lung bases, small bilateral pleural effusions. Patient was admitted to the hospital. I am asked to consult on this patient. Family History: Cardiovascular disease G8 BROTHER, Onset:40's - 50 Colon cancer G8 MOTHER, Onset:50's - 60 Diabetes mellitus G8 FATHER, Onset:60 years & older Allergies: Coded Allergies: Metoprolol (Verified Allergy, Severe, RASH, 09/28/19) Home Meds Reported Medications Diltiazem HCl (Cartia Xt) 240 Mg Cap, 1 CAP PO DAILY 03/27/25 Albuterol Sulfate (Ventolin) 2.5 Mg/3 Ml Nb, NEB UD 01/21/24 Fluticasone-Salmeterol (Wixela Inhub 500-50 Mcg/Dose) 1 Aer Aer, INH UD 01/21/24 Albuterol Sulfate (Albuterol Sulfate Hfa) 108 Mcg/Act Aer, INH UD 01/21/24 Furosemide (Furosemide) 40 Mg Tab, 1 TAB PO DAILY 11/16/23 Trazodone Hcl (Trazodone Hcl) 50 Mg Tab, 1 TAB PO HS 11/16/23 Albuterol Sulfate (Albuterol Sulfate) 0.083 % Neb, NEB UD 09/24/23 Amiodarone Hcl (Amiodarone Hcl) 200 Mg Tab, 1 TAB PO DAILY 09/24/23 Diltiazem Hcl (DILTIAZEM HCL ER) 240 Mg Cap, 1 CAP PO DAILY 09/24/23 Carvedilol (Carvedilol) 12.5 Mg Tab, 1 TAB PO BID 09/24/23 Montelukast Sodium (Singulair) 10 Mg Tab, 1 TAB PO DAILY 09/24/23 Metformin HCl (Metformin Hydrochloride) 1,000 Mg Tab, 1 TAB PO BID 09/24/23 Terazosin Hcl (Terazosin Hcl) 1 Mg Cap, 1 TAB PO DAILY 09/29/19 Apixaban Base (ELIQUIS) 5 Mg Tab, 1 TAB PO BID 09/29/19 Lisinopril (Lisinopril) 40 Mg Tab, 1 TAB PO DAILY 09/29/19 Atorvastatin Calcium (Lipitor) 40 Mg Tab, 1 TAB PO QPM 09/29/19 Current Medications Current Medications Medications (Trade) Dose Ordered Sig/Mckayla Route PRN Reason Start Time Stop Time Status Last Admin Acetaminophen/ Hydrocodone Bitart ([place] 5/325MG Tab) 1 tab Q4HP PRN PO MODERATE PAIN (4-6 PAIN SCALE) 03/27/25 08:00 Ondansetron HCl (Zofran) 4 mg Q4HP PRN IV NAUSEA / VOMITING 03/27/25 08:00 Docusate Sodium (Colace Capsule) 100 mg BIDPRN PRN PO FOR CONSTIPATION 03/27/25 08:00 Acetaminophen (Tylenol Tablet) 650 mg Q6HP PRN PO PAIN SCALE 1-3 OR TEMP>100.4 03/27/25 08:00 Nitroglycerin (Ntrostat Sublingual) 0.4 mg Q5MINP PRN SL FOR CHEST PAIN 03/27/25 08:00 Morphine Sulfate 2 mg Q30M PRN IV FOR CHEST PAIN 03/27/25 08:00 Amiodarone HCl (Cordarone Tablet) 200 mg DAILY PO 03/27/25 10:00 03/27/25 09:41 Apixaban (Eliquis) 5 mg BID PO 03/27/25 10:00 03/27/25 09:42 Carvedilol (Coreg Tablet) 12.5 mg BID PO 03/27/25 10:00 03/27/25 09:42 Montelukast Sodium (Singulair Tablet) 10 mg QPM PO 03/27/25 18:00 03/27/25 16:55 Trazodone HCl (Desyrel) 50 mg HS PO 03/27/25 22:00 Atorvastatin Calcium (Lipitor) 40 mg HS PO 03/27/25 22:00 Future Hold Lisinopril (Zestril Tablet) 40 mg DAILY PO 03/27/25 10:00 03/27/25 09:42 Diltiazem HCl (Cardizem ER Capsule) 240 mg DAILY PO 03/27/25 10:00 03/27/25 09:41 Azithromycin 250 ml @ 125 mls/hr DAILY IV 03/28/25 10:00 Ceftriaxone Sodium 50 ml @ 100 mls/hr DAILY@09 IV 03/28/25 09:00 Ipratropium [place] (Atrovent Medneb) 0.5 mg Q6HWA [facility] 03/27/25 18:00 Albuterol (Ventolin Medneb) 2.5 mg Q6HWA [facility] 03/27/25 18:00 Review of Systems Constitutional: reports: diaphoresis, fatigue, weakness; denies: chills, fever, malaise, sweats, others EENTM: denies: blurred vision, double vision, ear bleeding, ear discharge, ear drainage, ear pain, ear ringing, eye pain, eye redness, hearing loss, mouth pain, mouth swelling, nasal discharge, nose bleeding, nose congestion, nose pain, photophobia, tearing, throat pain, throat swelling, voice changes, others Respiratory: reports: cough, SOB at rest, shortness of breath, SOB with excertion, wheezing; denies: hemoptysis, orthopnea, stridor, others Cardiovascular: reports: chest pain, diaphoresis; denies: dizzy spells, Dyspnea on exertion, edema, irregular heart beat, left arm pain, lightheadedness, palpitations, PND, syncope, others Gastrointestinal: denies: abdomen distended, abdominal pain, blood streaked bowels, constipated, diarrhea, dysphagia, difficulty swallowing, hematemesis, melena, nausea, poor appetite, poor fluid intake, rectal bleeding, rectal pain, vomiting, others Genitourinary: denies: burning, dysuria, flank pain, frequency, hematuria, inc ontinence, penile discharge, penile sore, pain, testicle pain, testicle swelling, urgency, others Neurological: denies: dizziness, fainting, headache, left sided numbness, left sided weakness, numbness, paresthesia, pre-existing deficit, right sided numbness, right sided weakness, seizure, speech problems, tingling, tremors, weakness, others Musculoskeletal: denies: back pain, gout, joint pain, joint swelling, muscle pain, muscle stiffness, neck pain, others Integumetry: denies: bruises, change in color, change in hair/nails, dryness, laceration, lesions, lumps, rash, wounds, others Allergic/Immunocompromised: denies: Difficulty Healing, Frequent Infections, Hives, Itching, others Hematologic/Lymphatic: denies: anemia, blood clots, easy bleeding, easy bruising, swollen glands, others Endocrine: denies: excessive hunger, excessive sweating, excessive thirst, excessive urination, flushing, intolerance to cold, intolerance to heat, unexplained weight gain, unexplained weight loss, others Psychiatric: denies: anxiety, bipolar disorder, depression, hopeless, panic disorder, schizophrenia, sleepless, suicidal, others Vital Signs Vital Signs Date Time Temp Pulse Resp B/P (MAP) Pulse Ox O2 Delivery O2 Flow Rate FiO2 03/27/25 16:30 97.9 60 16 139/81 (100) 94 97.9 03/27/25 15:57 Nasal Cannula* 2 28 Physical Exam GENERAL: Alert and oriented x 3. No acute distress. EYES: PERRL, EOMI. Anicteric. HENT: Moist mucous membranes. LUNGS: Clear to auscultation bilaterally. CARDIOVASCULAR: Regular rate and rhythm. ABDOMEN: Soft, nontender and nondistended. EXTREMITIES: No edema. NEUROLOGIC: No focal neurological deficits. SKIN: Warm, dry. Labs/Diagnostic Data Labs Test 03/27/25 03:15 03/27/25 00:35 03/27/25 00:30 Range/Units Troponin I High Sensitivity 24 </=54 ng/L White Blood Count 13.5 H 4.4-10.8 10^3/uL Red Blood Count 5.01 4.5-5.90 10^6/uL Hemoglobin 15.5 13.5-17.5 g/dL Hematocrit 45.6 41.0-53.0 % Mean Corpuscular Volume 91.1 80.0-100.0 fL Mean Corpuscular Hemoglobin 30.9 28.0-32.0 pg Mean Corpuscular Hemoglobin Concent 34.0 32.0-36.0 g/dL Red Cell Distribution Width 14.2 11.8-14.3 % Platelet Count 324 140-450 10^3/uL Mean Platelet Volume 7.4 6.9-10.8 fL Neutrophils (%) (Auto) 71.9 37.0-80.0 % Lymphocytes (%) (Auto) 19.4 10.0-50.0 % Monocytes (%) (Auto) 5.9 0.0-12.0 % Eosinophils (%) (Auto) 1.9 0.0-7.0 % Basophils (%) (Auto) 0.9 0.0-2.0 % Neutrophils # (Auto) 9.7 H 1.6-8.6 10 ^3/uL Lymphocytes # (Auto) 2.6 0.4-5.4 10 ^3/uL Monocytes # (Auto) 0.8 0-1.3 10 ^3/uL Eosinophils # (Auto) 0.3 0-0.8 10 ^3/uL Basophils # (Auto) 0.1 0-0.2 10 ^3/uL Nucleated Red Blood Cells 0.1 % Prothrombin Time 11.4 9.3-11.8 sec Prothrombin Time INR 1.08 0.9-1.15 Activated Partial Thromboplast Time 28.5 24.5-34.5 SEC Sodium Level 138 136-145 mmol/L Potassium Level 3.8 3.5-5.1 mmol/L Chloride Level 107 98-107 mmol/L Carbon Dioxide Level 20 20-31 mmol/L Anion Gap 11 5-15 Blood Urea Nitrogen 13 9-23 mg/dL Creatinine 0.85 0.700-1.30 mg/dL Glomerular Filtration Rate Calc 92 >90 mL/min BUN/Creatinine Ratio 15.3 10.0-20.0 Serum Glucose 266 H 74-106 mg/dL Hemoglobin A1c 5.6 <5.7 % A1C Calcium Level 9.4 8.7-10.4 mg/dL Magnesium Level 2.3 1.6-2.6 mg/dL Total Bilirubin 1.2 H 0.2-1.0 mg/dL Aspartate Amino Transferase (AST) 126 H 13-40 U/L Alanine Aminotransferase (ALT) 200 H 7-40 U/L Alkaline Phosphatase 104 46-116 U/L B-Type Natriuretic Peptide 730.52 0-100 pg/mL Total Protein 8.5 H 5.7-8.2 g/dL Albumin 5.2 H 3.2-4.8 g/dL Blood Gas Specimen Type Venous Blood Gas Sample Site Vbg - n/a Blood Gas Patient Temperature 37.0 Arterial Blood Date Drawn [id number] Reinaldo Test N/a Venous Blood pH 7.282 L 7.320-7.430 Venous Blood pCO2 at Patient Temp 43.7 38.0-54.0 mmHg Venous Blood pO2 at Patient Temp 72.9 H 23.0-48.0 mmHg Venous Blood HCO3 20.2 L 22.0-29.0 mmol/L Venous Blood Base Excess -6.4 L -2.0-3.0 mmol/L Blood Gas Set Respiration Rate 12.0 Blood Gas Modality Mask - bipap Blood Gas Spontaneous Rate 30 FiO2 % 50.0 Blood Gas EPAP 5 Blood Gas IPAP 12 Assessment Pneumonia. CHF exacerbation. Hyperglycemia. Transaminitis. Hypertension. Hyperlipidemia. Diabetes. CHF. COPD. Plan/Recommendation I agree with your ongoing assessment and care of plan. Telemetry reviewed. Morphine and [place]wan for pain management. Amiodarone. Eliquis. IV antibiotics as ordered. Coreg,Lisinopril. Cardizem. Nitro SL. Additional plan as per the hospital course. A total of 45 minutes was spent reviewing the patient record, examining the patient, making a diagnostic and therapeutic plan, discussing this plan with medical personnel, following up on diagnostic studies and following the patient for clinical stability excluding any and all procedures. At least 50% of this time was spent in direct, [id number] contact. Plan discussed with: Patient RADHA MANCUSO MD Mar 27, 2025 18:59
[2025-03-28] VITALS (13 sets, daily range): BP systolic 127–155; BP diastolic 74–91; PULSE 60–83; RESP 16–20; TEMP 97.7–98.2; O2SAT 91–100
[2025-03-28] MEDS: POTASSIUM CHL 20 Meq TABLET PO ONE (03:16)
[2025-03-28 06:23] LABS: Hematocrit 40.3 % (41.0-53.0); Hemoglobin 14.3 g/dL (13.5-17.5); Mean Corpuscular Hemoglobin 31.6 pg (28.0-32.0); Mean Corpuscular Volume 89.2 fL (80.0-100.0); Nucleated Red Blood Cells % 0.0 %
[2025-03-28 06:44] LABS: Albumin 4.4 g/dL (3.2-4.8); Alkaline Phosphatase 76 U/L (46-116); Anion Gap 9 (5-15); BUN/Creatinine Ratio 14.8 (10.0-20.0); Blood Urea Nitrogen 13 mg/dL (9-23); Calcium 9.2 mg/dL (8.7-10.4); Carbon Dioxide 28 mmol/L (20-31); Chloride 104 mmol/L (98-107); Potassium 4.0 mmol/L (3.5-5.1); Sodium 141 mmol/L (136-145); Total Protein 7.4 g/dL (5.7-8.2)
[2025-03-28 06:50] LABS: Alanine Aminotransferase 124 U/L (7-40); Bilirubin, Total 1.2 mg/dL (0.2-1.0); Glucose 131 mg/dL (74-106)
[2025-03-28] MEDS: AZITHROMYCIN 500MG/ 250ML 250 ML IV SCH (09:47)
--- NOTE | 2025-03-28 12:21 | DVHPN2 ---
Reviewed: Care Plan, H&P, Labs, Medications, Previous Orders, Radiology Changes from previous H/P or p: No Changes Eyes: No Pain, No Vision change, No Conjunctivae inflammation, No Eyelid inflammation, No Other, No Redness ENT: No Ear pain, No Ear discharge, No Nose pain, No Nose discharge, No Nose congestion, No Mouth pain, No Mouth swelling, No Throat pain, No Throat swelling, No Other Cardiovascular: No Chest Pain, No Palpitations, No Orthopnea, No Paroxysmal Noc. Dyspnea, No Edema, No Lt Headedness, No Other Respiratory: No Cough, No Dry; Shortness of breath, SOB with excertion, W heezing; No Hemoptysis, No Pleuritic Pain, No Sputum, No Other Gastrointestinal: No Nausea, No Vomiting, No Abdominal Pain, No Diarrhea, No Constipation, No Melena, No Hematochezia, No Other Genitourinary: No Dysuria, No Frequency, No Incontinence, No Hematuria, No Retention, No Other Musculoskeletal: No other, No neck pain, No shoulder pain, No arm pain, No back pain, No hand pain, No leg pain, No foot pain Skin: No Rash, No Lesions, No Jaundice, No Bruising, No Other Objective Vitals Vital Signs Date Time Temp Pulse Resp B/P (MAP) Pulse Ox O2 Delivery O2 Flow Rate FiO2 03/28/25 12:08 60 16 100 03/28/25 12:01 Nasal Cannula 03/28/25 12:01 0 21 03/28/25 09:06 97.7 127/74 (91) 97.7 Intake/Output Intake and Output 03/28/25 07:00 Intake Total 830 ml Output Total 500 ml Balance 330 ml Intake Oral 830 ml Output Urine Total 500 ml # Voids 1 Medications Current Medications Medications Dose Ordered Sig/Mckayla Route Start Time Stop Time Status Last Admin Dose Admin Acetaminophen/ Hydrocodone Bitart 1 tab Q4HP PRN PO 03/27/25 08:00 Ondansetron HCl 4 mg Q4HP PRN IV 03/27/25 08:00 Docusate Sodium 100 mg BIDPRN PRN PO 03/27/25 08:00 Acetaminophen 650 mg Q6HP PRN PO 03/27/25 08:00 Nitroglycerin 0.4 mg Q5MINP PRN SL 03/27/25 08:00 Morphine Sulfate 2 mg Q30M PRN IV 03/27/25 08:00 Amiodarone HCl 200 mg DAILY PO 03/27/25 10:00 03/28/25 08:48 200 MG Apixaban 5 mg BID PO 03/27/25 10:00 03/28/25 08:50 5 MG Carvedilol 12.5 mg BID PO 03/27/25 10:00 03/28/25 08:50 12.5 MG Montelukast Sodium 10 mg QPM PO 03/27/25 18:00 03/27/25 16:55 10 MG Trazodone HCl 50 mg HS PO 03/27/25 22:00 03/27/25 21:09 50 MG Atorvastatin Calcium 40 mg HS PO 03/27/25 22:00 Hold Lisinopril 40 mg DAILY PO 03/27/25 10:00 03/28/25 08:50 40 MG Diltiazem HCl 240 mg DAILY PO 03/27/25 10:00 03/28/25 08:49 240 MG Azithromycin 250 ml @ 125 mls/hr DAILY IV 03/28/25 10:00 03/28/25 09:47 125 MLS/HR Ceftriaxone Sodium 50 ml @ 100 mls/hr DAILY@09 IV 03/28/25 09:00 03/28/25 08:48 100 MLS/HR Ipratropium [place] 0.5 mg Q6HWA [facility] 03/27/25 18:00 03/28/25 12:03 0.5 MG Albuterol 2.5 mg Q6HWA [facility] 03/27/25 18:00 03/28/25 12:03 2.5 MG Laboratory Results Laboratory Tests 03/28/25 05:27 Chemistry Test 03/27/25 20:40 03/28/25 05:27 Magnesium Level 1.9 mg/dL (1.6-2.6) Albumin 4.4 g/dL (3.2-4.8) Calcium Level 9.2 mg/dL (8.7-10.4) Total Protein 7.4 g/dL (5.7-8.2) LFT Test 03/28/25 05:27 Alanine Aminotransferase (ALT) 124 U/L (7-40) H Alkaline Phosphatase 76 U/L (46-116) Aspartate Amino Transferase (AST) 37 U/L (13-40) Total Bilirubin 1.2 mg/dL (0.2-1.0) H Labs and/or images reviewed: Labs reviewed by me, Image(s) reviewed by me Assessment/Plan Assessment/Plan Acute hypoxic respiratory failure: Oxygen by nasal cannula Community-acquired pneumonia: Gram-positive/Gram-negative: Rocephin azithromycin Acute COPD exacerbation: Albuterol Atrovent Acute CHF exacerbation.: Lasix, cardiology consult by Dr. Zamorano appreciated Hyperglycemia. Transaminitis. Hypertension. Coreg Hyperlipidemia. Diabetes. On Eliquis Time spent 70 minutes Advanced care planning time 20 minutes Patient is full code Patient not stable for transfer to [facility] discussed with: Patient Date of Service: Mar 28, 2025 Billing Provider: TANESHA SANDERS MD Common Visit Codes: [id number] CARE 30-74 MIN TANESHA SANDERS MD Mar 28, 2025 12:21
[2025-03-28 15:03] LABS: COVID19 ANTIGEN SOFIA FIA NEGATIVE (NEGATIVE)
[2025-03-28] MEDS: DOCUSATE SOD 100 MG CAP PO PRN (18:58)
--- NOTE | 2025-03-28 23:01 | DVHPN2 ---
Progress Note - Dictate Date Seen: Mar 28, 2025 Medical Necessity Reason Pt with a Central, PICC or Fol: No Subjective Patient was seen and evaluated in follow up. Patient is on 2 LPM NC. Patient complains of SOB. WBC 10.9, ALT 124. Patient is declining to be transfer to [place] for continuation of care. Telemetry reviewed. vital signs Vital Sign Date Time Temp Pulse Resp B/P (MAP) Pulse Ox O2 Delivery O2 Flow Rate FiO2 03/28/25 12:08 60 16 100 03/28/25 12:01 Nasal Cannula 03/28/25 12:01 0 21 03/28/25 09:06 97.7 127/74 (91) 97.7 Total Intake and Output 03/27/25 03/27/25 03/28/25 15:00 23:00 07:00 Intake Total 400 ml 430 ml Output Total 500 ml Balance 400 ml -70 ml medications Current Medications Medications Dose Ordered Sig/Mckayla Route Start Time Stop Time Status Last Admin Dose Admin Acetaminophen/ Hydrocodone Bitart 1 tab Q4HP PRN PO 03/27/25 08:00 Ondansetron HCl 4 mg Q4HP PRN IV 03/27/25 08:00 Docusate Sodium 100 mg BIDPRN PRN PO 03/27/25 08:00 Acetaminophen 650 mg Q6HP PRN PO 03/27/25 08:00 Nitroglycerin 0.4 mg Q5MINP PRN SL 03/27/25 08:00 Morphine Sulfate 2 mg Q30M PRN IV 03/27/25 08:00 Amiodarone HCl 200 mg DAILY PO 03/27/25 10:00 03/28/25 08:48 200 MG Apixaban 5 mg BID PO 03/27/25 10:00 03/28/25 08:50 5 MG Carvedilol 12.5 mg BID PO 03/27/25 10:00 03/28/25 08:50 12.5 MG Montelukast Sodium 10 mg QPM PO 03/27/25 18:00 03/27/25 16:55 10 MG Trazodone HCl 50 mg HS PO 03/27/25 22:00 03/27/25 21:09 50 MG Atorvastatin Calcium 40 mg HS PO 03/27/25 22:00 Hold Lisinopril 40 mg DAILY PO 03/27/25 10:00 03/28/25 08:50 40 MG Diltiazem HCl 240 mg DAILY PO 03/27/25 10:00 03/28/25 08:49 240 MG Azithromycin 250 ml @ 125 mls/hr DAILY IV 03/28/25 10:00 03/28/25 09:47 125 MLS/HR Ceftriaxone Sodium 50 ml @ 100 mls/hr DAILY@09 IV 03/28/25 09:00 03/28/25 08:48 100 MLS/HR Ipratropium [place] 0.5 mg Q6HWA [facility] 03/27/25 18:00 03/28/25 12:03 0.5 MG Albuterol 2.5 mg Q6HWA [facility] 03/27/25 18:00 03/28/25 12:03 2.5 MG objective GENERAL: Alert and oriented x 3. No acute distress. EYES: PERRL, EOMI. Anicteric. HENT: Moist mucous membranes. LUNGS: Clear to auscultation bilaterally. CARDIOVASCULAR: Regular rate and rhythm. ABDOMEN: Soft, nontender and nondistended. EXTREMITIES: No edema. NEUROLOGIC: No focal neurological deficits. SKIN: Warm, dry. laboratory and microbiology Laboratory Tests 03/28/25 05:27 Test 03/28/25 05:27 Range/Units Serum Glucose 131 #H 74-106 mg/dL Problem List Pneumonia. CHF exacerbation. Hyperglycemia. Transaminitis. Hypertension. Hyperlipidemia. Diabetes. CHF. COPD. Assessment/Plan Continued all current supportive medical care. Morphine and [place] for pain management. Amiodarone. Eliquis. IV antibiotics as ordered. Coreg, Lisinopril. Cardizem. Nebulized breathing treatments. Additional plan as per the hospital course. A total of 25 minutes was spent reviewing the patient record, examining the patient, making a diagnostic and therapeutic plan, discussing this plan with medical personnel, following up on diagnostic studies and following the patient for clinical stability excluding any and all procedures. At least 50% of this time was spent in direct, [id number] contact. Plan discussed with: Patient RADHA MANCUSO MD Mar 28, 2025 12:32
[2025-03-29] VITALS (15 sets, daily range): BP systolic 117–155; BP diastolic 83–97; PULSE 69–91; RESP 14–21; TEMP 97.5–98.5; O2SAT 92–100
--- NOTE | 2025-03-29 03:11 | ECG ---
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
--- NOTE | 2025-03-29 10:04 | DVHPN2 ---
Reviewed: Care Plan, H&P, Labs, Medications, Previous Orders, Radiology Changes from previous H/P or p: No Changes Eyes: No Pain, No Vision change, No Conjunctivae inflammation, No Eyelid inflammation, No Other, No Redness ENT: No Ear pain, No Ear discharge, No Nose pain, No Nose discharge, No Nose congestion, No Mouth pain, No Mouth swelling, No Throat pain, No Throat swelling, No Other Cardiovascular: No Chest Pain, No Palpitations, No Orthopnea, No Paroxysmal Noc. Dyspnea, No Edema, No Lt Headedness, No Other Respiratory: No Cough, No Dry; Shortness of breath, SOB with excertion, W heezing; No Hemoptysis, No Pleuritic Pain, No Sputum, No Other Gastrointestinal: No Nausea, No Vomiting, No Abdominal Pain, No Diarrhea, No Constipation, No Melena, No Hematochezia, No Other Genitourinary: No Dysuria, No Frequency, No Incontinence, No Hematuria, No Retention, No Other Musculoskeletal: No other, No neck pain, No shoulder pain, No arm pain, No back pain, No hand pain, No leg pain, No foot pain Skin: No Rash, No Lesions, No Jaundice, No Bruising, No Other Objective Vitals Vital Signs Date Time Temp Pulse Resp B/P (MAP) Pulse Ox O2 Delivery O2 Flow Rate FiO2 03/29/25 09:29 86 152/100 03/29/25 06:33 16 100 03/29/25 06:27 Nasal Cannula 2.0 03/29/25 06:27 28 03/29/25 05:00 98.1 98.1 Intake/Output Intake and Output 03/29/25 07:00 Intake Total 2630 ml Balance 2630 ml Intake Oral 2280 ml IV Total 350 ml # Voids 6 Medications Current Medications Medications Dose Ordered Sig/Mckayla Route Start Time Stop Time Status Last Admin Dose Admin Acetaminophen/ Hydrocodone Bitart 1 tab Q4HP PRN PO 03/27/25 08:00 Ondansetron HCl 4 mg Q4HP PRN IV 03/27/25 08:00 Docusate Sodium 100 mg BIDPRN PRN PO 03/27/25 08:00 03/28/25 18:58 100 MG Acetaminophen 650 mg Q6HP PRN PO 03/27/25 08:00 Nitroglycerin 0.4 mg Q5MINP PRN SL 03/27/25 08:00 Morphine Sulfate 2 mg Q30M PRN IV 03/27/25 08:00 Amiodarone HCl 200 mg DAILY PO 03/27/25 10:00 03/29/25 09:28 200 MG Apixaban 5 mg BID PO 03/27/25 10:00 03/29/25 09:29 5 MG Carvedilol 12.5 mg BID PO 03/27/25 10:00 03/29/25 09:29 12.5 MG Montelukast Sodium 10 mg QPM PO 03/27/25 18:00 03/28/25 18:57 10 MG Trazodone HCl 50 mg HS PO 03/27/25 22:00 03/28/25 21:11 50 MG Atorvastatin Calcium 40 mg HS PO 03/27/25 22:00 Hold Lisinopril 40 mg DAILY PO 03/27/25 10:00 03/29/25 09:27 40 MG Diltiazem HCl 240 mg DAILY PO 03/27/25 10:00 03/29/25 09:28 240 MG Azithromycin 250 ml @ 125 mls/hr DAILY IV 03/28/25 10:00 03/28/25 09:47 125 MLS/HR Ceftriaxone Sodium 50 ml @ 100 mls/hr DAILY@09 IV 03/28/25 09:00 03/29/25 09:26 100 MLS/HR Ipratropium [place] 0.5 mg Q6HWA [facility] 03/27/25 18:00 03/29/25 06:27 0.5 MG Albuterol 2.5 mg Q6HWA [facility] 03/27/25 18:00 03/29/25 06:27 2.5 MG Laboratory Results Laboratory Tests 03/28/25 05:27 Labs and/or images reviewed: Labs reviewed by me, Image(s) reviewed by me Assessment/Plan Assessment/Plan Acute hypoxic respiratory failure: Oxygen by nasal cannula Community-acquired pneumonia: Gram-positive/Gram-negative: Rocephin azithromycin Acute COPD exacerbation: Albuterol Atrovent Acute CHF exacerbation.: Lasix, cardiology consult by Dr. Zamorano appreciated Hyperglycemia. Transaminitis. Hypertension. Coreg, metoprolol tartrate Hyperlipidemia. Diabetes. On Eliquis Time spent 50 minutes Advanced care planning time 20 minutes Patient is full code Patient not stable for transfer to [place] Plan discussed with: Patient Date of Service: Mar 29, 2025 Billing Provider: TANESHA SANDERS MD Common Visit Codes: [id number] INP/OBS CARE(HIGH) TANESHA SANDERS MD Mar 29, 2025 10:04
[2025-03-29] MEDS: METOPROLOL TARTRATE 50 MG TAB PO ONE (14:00)
[2025-03-29] MEDS: ALPRAZolam 0.5 MG TAB PO SCH (15:37)
[2025-03-29] MEDS: CARVEDILOL 3.125 MG TAB PO SCH (21:43)
[2025-03-29] MEDS ORDERED: METOPROLOL TARTRATE 50 MG TAB PO SCH (22:00)
--- NOTE | 2025-03-29 22:58 | DVHPN2 ---
Progress Note - Dictate Date Seen: Mar 29, 2025 Medical Necessity Reason Pt with a Central, PICC or Fol: No Subjective Patient was seen and evaluated in follow up. Overnight, the patient was noted to have a single run of V-Tach, patient was asymptomatic. Patient is on 2 LPM NC. Patient complains of SOB. Telemetry reviewed. vital signs Vital Sign Date Time Temp Pulse Resp B/P (MAP) Pulse Ox O2 Delivery O2 Flow Rate FiO2 03/29/25 13:01 69 16 100 03/29/25 12:55 Room Air* 0 21 03/29/25 09:29 152/100 03/29/25 09:00 98.2 98.2 Total Intake and Output 03/28/25 03/28/25 03/29/25 15:00 23:00 07:00 Intake Total 350 ml 1000 ml 1280 ml Balance 350 ml 1000 ml 1280 ml medications Current Medications Medications Dose Ordered Sig/Mckayla Route Start Time Stop Time Status Last Admin Dose Admin Acetaminophen/ Hydrocodone Bitart 1 tab Q4HP PRN PO 03/27/25 08:00 Ondansetron HCl 4 mg Q4HP PRN IV 03/27/25 08:00 Docusate Sodium 100 mg BIDPRN PRN PO 03/27/25 08:00 03/29/25 11:10 100 MG Acetaminophen 650 mg Q6HP PRN PO 03/27/25 08:00 Nitroglycerin 0.4 mg Q5MINP PRN SL 03/27/25 08:00 Morphine Sulfate 2 mg Q30M PRN IV 03/27/25 08:00 Amiodarone HCl 200 mg DAILY PO 03/27/25 10:00 03/29/25 09:28 200 MG Apixaban 5 mg BID PO 03/27/25 10:00 03/29/25 09:29 5 MG Carvedilol 12.5 mg BID PO 03/27/25 10:00 03/29/25 09:29 12.5 MG Montelukast Sodium 10 mg QPM PO 03/27/25 18:00 03/28/25 18:57 10 MG Trazodone HCl 50 mg HS PO 03/27/25 22:00 03/28/25 21:11 50 MG Atorvastatin Calcium 40 mg HS PO 03/27/25 22:00 Hold Lisinopril 40 mg DAILY PO 03/27/25 10:00 03/29/25 09:27 40 MG Diltiazem HCl 240 mg DAILY PO 03/27/25 10:00 03/29/25 09:28 240 MG Azithromycin 250 ml @ 125 mls/hr DAILY IV 03/28/25 10:00 03/29/25 11:11 125 MLS/HR Ceftriaxone Sodium 50 ml @ 100 mls/hr DAILY@09 IV 03/28/25 09:00 03/29/25 09:26 100 MLS/HR Ipratropium [place] 0.5 mg Q6HWA [facility] 03/27/25 18:00 03/29/25 12:55 0.5 MG Albuterol 2.5 mg Q6HWA NE[facility] 03/27/25 18:00 03/29/25 12:55 2.5 MG Alprazolam 1 mg TID PO 03/29/25 14:00 Metoprolol Tartrate 50 mg BID PO 03/29/25 22:00 UNV objective GENERAL: Alert and oriented x 3. No acute distress. EYES: PERRL, EOMI. Anicteric. HENT: Moist mucous membranes. LUNGS: Clear to auscultation bilaterally. CARDIOVASCULAR: Regular rate and rhythm. ABDOMEN: Soft, nontender and nondistended. EXTREMITIES: No edema. NEUROLOGIC: No focal neurological deficits. SKIN: Warm, dry. laboratory and microbiology Laboratory Tests 03/28/25 05:27 Test 03/28/25 05:27 Range/Units Serum Glucose 131 #H 74-106 mg/dL Problem List Pneumonia. CHF exacerbation. Hyperglycemia. Transaminitis. Hypertension. Hyperlipidemia. Diabetes. CHF. COPD. Assessment/Plan Continued all current supportive medical care. Morphine and [place] for pain management. Metoprolol. Amiodarone. Eliquis. IV antibiotics as ordered. Coreg, Lisinopril. Cardizem. Nebulized breathing treatments. Additional plan as per the hospital course. A total of 25 minutes was spent reviewing the patient record, examining the patient, making a diagnostic and therapeutic plan, discussing this plan with medical personnel, following up on diagnostic studies and following the patient for clinical stability excluding any and all procedures. At least 50% of this time was spent in direct, [id number] contact. Plan discussed with: Patient RADHA MANCUSO MD Mar 29, 2025 13:58
[2025-03-30] VITALS (10 sets, daily range): BP systolic 140–167; BP diastolic 75–109; PULSE 68–91; RESP 16–20; TEMP 97.7–98.2; O2SAT 91–100
[2025-03-30] MEDS: ACETAMINOPHEN 325 MG TAB PO PRN (05:09)
--- NOTE | 2025-03-30 10:01 | DVHPN2 ---
Reviewed: Care Plan, H&P, Labs, Medications, Previous Orders, Radiology Changes from previous H/P or p: No Changes Eyes: No Pain, No Vision change, No Conjunctivae inflammation, No Eyelid inflammation, No Other, No Redness ENT: No Ear pain, No Ear discharge, No Nose pain, No Nose discharge, No Nose congestion, No Mouth pain, No Mouth swelling, No Throat pain, No Throat swelling, No Other Cardiovascular: No Chest Pain, No Palpitations, No Orthopnea, No Paroxysmal Noc. Dyspnea, No Edema, No Lt Headedness, No Other Respiratory: No Cough, No Dry; Shortness of breath, SOB with excertion, W heezing; No Hemoptysis, No Pleuritic Pain, No Sputum, No Other Gastrointestinal: No Nausea, No Vomiting, No Abdominal Pain, No Diarrhea, No Constipation, No Melena, No Hematochezia, No Other Genitourinary: No Dysuria, No Frequency, No Incontinence, No Hematuria, No Retention, No Other Musculoskeletal: No other, No neck pain, No shoulder pain, No arm pain, No back pain, No hand pain, No leg pain, No foot pain Skin: No Rash, No Lesions, No Jaundice, No Bruising, No Other Objective Vitals Vital Signs Date Time Temp Pulse Resp B/P (MAP) Pulse Ox O2 Delivery O2 Flow Rate FiO2 03/30/25 09:28 88 150/92 03/30/25 09:00 98.0 20 96 98.0 03/30/25 06:01 Room Air 0.0 03/30/25 06:01 21 Intake/Output Intake and Output 03/30/25 07:00 Intake Total 1230 ml Balance 1230 ml Intake Oral 880 ml IV Total 350 ml # Voids 7 # Bowel Movements 1 Medications Current Medications Medications Dose Ordered Sig/Mckayla Route Start Time Stop Time Status Last Admin Dose Admin Acetaminophen/ Hydrocodone Bitart 1 tab Q4HP PRN PO 03/27/25 08:00 Ondansetron HCl 4 mg Q4HP PRN IV 03/27/25 08:00 Docusate Sodium 100 mg BIDPRN PRN PO 03/27/25 08:00 03/29/25 11:10 100 MG Acetaminophen 650 mg Q6HP PRN PO 03/27/25 08:00 03/30/25 05:09 650 MG Nitroglycerin 0.4 mg Q5MINP PRN SL 03/27/25 08:00 Morphine Sulfate 2 mg Q30M PRN IV 03/27/25 08:00 Amiodarone HCl 200 mg DAILY PO 03/27/25 10:00 03/30/25 09:17 200 MG Apixaban 5 mg BID PO 03/27/25 10:00 03/30/25 09:15 5 MG Montelukast Sodium 10 mg QPM PO 03/27/25 18:00 03/29/25 17:34 10 MG Trazodone HCl 50 mg HS PO 03/27/25 22:00 03/28/25 21:11 50 MG Atorvastatin Calcium 40 mg HS PO 03/27/25 22:00 Hold Lisinopril 40 mg DAILY PO 03/27/25 10:00 03/30/25 09:16 40 MG Diltiazem HCl 240 mg DAILY PO 03/27/25 10:00 03/30/25 09:17 240 MG Azithromycin 250 ml @ 125 mls/hr DAILY IV 03/28/25 10:00 03/29/25 11:11 125 MLS/HR Ceftriaxone Sodium 50 ml @ 100 mls/hr DAILY@09 IV 03/28/25 09:00 03/30/25 09:15 100 MLS/HR Ipratropium [place] 0.5 mg Q6HWA [facility] 03/27/25 18:00 03/30/25 06:01 0.5 MG Albuterol 2.5 mg Q6HWA [facility] 03/27/25 18:00 03/30/25 06:01 2.5 MG Alprazolam 1 mg TID PO 03/29/25 14:00 03/29/25 15:37 1 MG Carvedilol 6.25 mg Q12HR PO 03/29/25 22:00 03/30/25 09:28 6.25 MG Laboratory Results Laboratory Tests 03/28/25 05:27 Labs and/or images reviewed: Labs reviewed by me, Image(s) reviewed by me Assessment/Plan Assessment/Plan Acute hypoxic respiratory failure: Oxygen by nasal cannula Community-acquired pneumonia: Gram-positive/Gram-negative: Rocephin azithromycin Acute COPD exacerbation: Albuterol Atrovent Acute CHF exacerbation.: Lasix, cardiology consult by Dr. Zamorano appreciated Hyperglycemia. Transaminitis. Hypertension. Coreg, metoprolol tartrate Hyperlipidemia. Diabetes. AFib: On Eliquis Patient feels better and wants to be discharged home, Plan discussed with: Patient My Orders Orders - TANESHA SANDERS MD Procedure Category Date Status Time Alprazolam Tablet PHA 03/29/25 In Process (Xanax Tablet) 14:00 Carvedilol Tablet PHA 03/29/25 In Process (Coreg Tablet) 22:00 Date of Service: Mar 30, 2025 Billing Provider: TANESHA SANDERS MD Common Visit Codes: [id number] INP/OBS CARE(HIGH) TANESHA SANDERS MD Mar 30, 2025 10:01
[2025-03-30] MEDS ORDERED: AZIT500T66 PO (10:06)
[2025-03-30] MEDS ORDERED: ALBUAER3 IN (10:06)
--- NOTE | 2025-03-30 10:11 | DVHDS2 ---
Discharge Summary Date of Admission Mar 27, 2025 at 07:54 Date of Discharge: Mar 30, 2025 Admitting Diagnosis Shortness of breath Wounds: None Labs/Diagnostic Data: Laboratory Results Test 03/29/25 03:18 03/28/25 12:54 03/28/25 05:27 03/27/25 20:40 POC Glucose 159 mg/dl (70-106) Influenza Type A Antigen Negative (Negative) Influenza Type B Antigen Negative (Negative) SARS-CoV-2 Antigen (Rapid) Negative (NEGATIVE) White Blood Count 10.9 10^3/uL (4.4-10.8) Red Blood Count 4.52 10^6/uL (4.5-5.90) Hemoglobin 14.3 g/dL (13.5-17.5) Hematocrit 40.3 % (41.0-53.0) Mean Corpuscular Volume 89.2 fL (80.0-100.0) Mean Corpuscular Hemoglobin 31.6 pg (28.0-32.0) Mean Corpuscular Hemoglobin Concent 35.4 g/dL (32.0-36.0) Red Cell Distribution Width 13.7 % (11.8-14.3) Platelet Count 296 10^3/uL (140-450) Mean Platelet Volume 7.5 fL (6.9-10.8) Neutrophils (%) (Auto) 73.5 % (37.0-80.0) Lymphocytes (%) (Auto) 18.4 % (10.0-50.0) Monocytes (%) (Auto) 7.5 % (0.0-12.0) Eosinophils (%) (Auto) 0.2 % (0.0-7.0) Basophils (%) (Auto) 0.4 % (0.0-2.0) Neutrophils # (Auto) 8.0 10 ^3/uL (1.6-8.6) Lymphocytes # (Auto) 2.0 10 ^3/uL (0.4-5.4) Monocytes # (Auto) 0.8 10 ^3/uL (0-1.3) Eosinophils # (Auto) 0 10 ^3/uL (0-0.8) Basophils # (Auto) 0 10 ^3/uL (0-0.2) Nucleated Red Blood Cells 0.0 % Sodium Level 141 mmol/L (136-145) Potassium Level 4.0 mmol/L (3.5-5.1) Chloride Level 104 mmol/L (98-107) Carbon Dioxide Level 28 mmol/L (20-31) Anion Gap 9 (5-15) Blood Urea Nitrogen 13 mg/dL (9-23) Creatinine 0.88 mg/dL (0.700-1.30) Glomerular Filtration Rate Calc 91 mL/min (>90) BUN/Creatinine Ratio 14.8 (10.0-20.0) Serum Glucose 131 mg/dL (74-106) Calcium Level 9.2 mg/dL (8.7-10.4) Total Bilirubin 1.2 mg/dL (0.2-1.0) Aspartate Amino Transferase (AST) 37 U/L (13-40) Alanine Aminotransferase (ALT) 124 U/L (7-40) Alkaline Phosphatase 76 U/L (46-116) Total Protein 7.4 g/dL (5.7-8.2) Albumin 4.4 g/dL (3.2-4.8) Magnesium Level 1.9 mg/dL (1.6-2.6) Test 03/27/25 03:15 03/27/25 00:35 03/27/25 00:30 Troponin I High Sensitivity 24 ng/L (</=54) Prothrombin Time 11.4 sec (9.3-11.8) Prothrombin Time INR 1.08 (0.9-1.15) Activated Partial Thromboplast Time 28.5 SEC (24.5-34.5) Hemoglobin A1c 5.6 % A1C (<5.7) B-Type Natriuretic Peptide 730.52 pg/mL (0-100) Blood Gas Specimen Type Venous Blood Gas Sample Site Vbg - n/a Blood Gas Patient Temperature 37.0 Arterial Blood Date Drawn [id number] Reinaldo Test N/a Venous Blood pH 7.282 (7.320-7.430) Venous Blood pCO2 at Patient Temp 43.7 mmHg (38.0-54.0) Venous Blood pO2 at Patient Temp 72.9 mmHg (23.0-48.0) Venous Blood HCO3 20.2 mmol/L (22.0-29.0) Venous Blood Base Excess -6.4 mmol/L (-2.0-3.0) Blood Gas Set Respiration Rate 12.0 Blood Gas Modality Mask - bipap Blood Gas Spontaneous Rate 30 FiO2 % 50.0 Blood Gas EPAP 5 Blood Gas IPAP 12 Other Laboratory Tests 03/28/25 05:27 Brief Hx & Hospital Course: 74-year-old male [place] patient with a history of COPD CHF hypertension hyperlipidemia diabetes AFib on Eliquis came in for shortness of breaths found to have community-acquired pneumonia treated with Rocephin and azithromycin blood cultures negative seen by Cardiology Dr. Zamorano for CHF exacerbation treated with the Lasix continued all home medications including Coreg and metoprolol tartrate. Patient feels better on room air and wants to be discharged home discharged on azithromycin and albuterol MDI. He will follow up with the his [facility] Consults/Reason for consult Cardiology Dr. Jacquelyn Zamorano Operations or Procedures None Condition at Discharge: Fair Final Diagnosis/Problems List Acute hypoxic respiratory failure: Oxygen by nasal cannula Community-acquired pneumonia: Gram-positive/Gram-negative: Rocephin azithromycin Acute COPD exacerbation: Albuterol Atrovent Acute CHF exacerbation.: Lasix, cardiology consult by Dr. Zamorano appreciated Hyperglycemia. Transaminitis. Hypertension. Coreg, metoprolol tartrate Hyperlipidemia. Diabetes. AFib: On Eliquis Discharge Disposition: Home Discharge Instruct/Medications Diet: Cardiac 2g Na,low cholest Activity: Light activity Follow Up/Referral: Follow up with your [facility] in one week Resume all previous home meds Medications: Azithromycin Albuterol MDI Transmitted [facility] Scheduled Albuterol Sulfate (Albuterol Sulfate), NEB UD, (Reported) Albuterol Sulfate (Albuterol Sulfate Hfa), INH UD, (Reported) Albuterol Sulfate (Ventolin), NEB UD, (Reported) Albuterol Sulfate (Ventolin Mdi), 90 MCG IN QID Amiodarone Hcl (Amiodarone Hcl), 1 TAB PO DAILY, (Reported) Apixaban Base (Eliquis), 1 TAB PO BID, (Reported) Atorvastatin Calcium (Lipitor), 1 TAB PO QPM, (Reported) Azithromycin (Azithromycin), 1 TAB PO DAILY Carvedilol (Carvedilol), 1 TAB PO BID, (Reported) Diltiazem HCl (Cartia Xt), 1 CAP PO DAILY, (Reported) Diltiazem Hcl (Diltiazem Hcl Er), 1 CAP PO DAILY, (Reported) Fluticasone-Salmeterol (Wixela Inhub 500-50 Mcg/Dose), INH UD, (Reported) Furosemide (Furosemide), 1 TAB PO DAILY, (Reported) Lisinopril (Lisinopril), 1 TAB PO DAILY, (Reported) Metformin HCl (Metformin Hydrochloride), 1 TAB PO BID, (Reported) Montelukast Sodium (Singulair), 1 TAB PO DAILY, (Reported) Terazosin Hcl (Terazosin Hcl), 1 TAB PO DAILY, (Reported) Trazodone Hcl (Trazodone Hcl), 1 TAB PO HS, (Reported) 36 (Time taken for discharge summary 36 minutes) Discharge Statement: "Patient was advised to return to the ER or call 911 if any headaches, dizziness, shortness of breath, chest pain, abdominal pain, bleeding, fevers, or worsening of medical condition. Patient was counseled about treatment plan, medications, possible side effects, patientverbalized understanding. All questions were answered to the best of my ability. This discharge took greater then 30 minutes in planning, reviewing documentation, counseling the patient, and discussing with other team members." ASSESSMENT ASSESSMENT Assessment Acute hypoxic respiratory failure: Oxygen by nasal cannula Community-acquired pneumonia: Gram-positive/Gram-negative: Rocephin azithromycin Acute COPD exacerbation: Albuterol Atrovent Acute CHF exacerbation.: Lasix, cardiology consult by Dr. Zamorano appreciated Hyperglycemia. Transaminitis. Hypertension. Coreg, metoprolol tartrate Hyperlipidemia. Diabetes. AFib: On Eliquis Date of Service: Mar 30, 2025 Billing Provider: TANESHA SANDERS MD Common Visit Codes: 70716-UDZ/OBS DISCH DAY >30min TANESHA SANDERS MD Mar 30, 2025 10:11
--- NOTE | 2025-03-30 22:59 | DVHPN2 ---
Progress Note - Dictate Date Seen: Mar 30, 2025 Medical Necessity Reason Pt with a Central, PICC or Fol: No Subjective Patient was seen and evaluated in follow up. Patient has no new complaints at this time. Patient denies any cardiac symptoms. Patient is cardiac stable for discharge. Telemetry reviewed. vital signs Vital Sign Date Time Temp Pulse Resp B/P (MAP) Pulse Ox O2 Delivery O2 Flow Rate FiO2 03/30/25 11:44 83 16 100 03/30/25 11:38 Room Air 0.0 03/30/25 11:38 21 03/30/25 11:28 140/75 03/30/25 11:23 98.0 Total Intake and Output 03/29/25 03/29/25 03/30/25 15:00 23:00 07:00 Intake Total 470 ml 360 ml 400 ml Balance 470 ml 360 ml 400 ml objective GENERAL: Alert and oriented x 3. No acute distress. EYES: PERRL, EOMI. Anicteric. HENT: Moist mucous membranes. LUNGS: Clear to auscultation bilaterally. CARDIOVASCULAR: Regular rate and rhythm. ABDOMEN: Soft, nontender and nondistended. EXTREMITIES: No edema. NEUROLOGIC: No focal neurological deficits. SKIN: Warm, dry. laboratory and microbiology Laboratory Tests 03/28/25 05:27 Test 03/28/25 05:27 Range/Units Serum Glucose 131 #H 74-106 mg/dL Problem List Pneumonia. CHF exacerbation. Hyperglycemia. Transaminitis. Hypertension. Hyperlipidemia. Diabetes. CHF. COPD. Assessment/Plan Continued all current supportive medical care. Morphine and [place] for pain management. Metoprolol. Amiodarone. Eliquis. IV antibiotics as ordered. Coreg, Lisinopril. Cardizem. Nebulized breathing treatments. Additional plan as per the hospital course. A total of 25 minutes was spent reviewing the patient record, examining the patient, making a diagnostic and therapeutic plan, discussing this plan with medical personnel, following up on diagnostic studies and following the patient for clinical stability excluding any and all procedures. At least 50% of this time was spent in direct, [id number] contact. Plan discussed with: Patient RADHA MANCUSO MD Mar 30, 2025 22:59
== END 2025-03-30 12:30 | disposition home or self-care (01) | DRG 177 ==
LOC: ER 00:16 → EDBD 00:16 → OVERFLOW 07:54 → TELE-CENTR 15:31
PROVIDERS: ADMIT Family Medicine; ATTEND Family Medicine
PROC: 5A09357 Assistance with Respiratory Ventilation, Less than 24 Consecutive Hours, Continuous Positive Airway Pressure (ICD-10-PCS; principal; 2025-03-27)
DX: J15.69 Pneumonia due to other Gram-negative bacteria (principal); I50.41 Acute combined systolic (congestive) and diastolic (congestive) heart failure; J96.01 Acute respiratory failure with hypoxia; R65.11 Systemic inflammatory response syndrome (SIRS) of non-infectious origin with acute organ dysfunction; J44.1 Chronic obstructive pulmonary disease with (acute) exacerbation; J44.0 Chronic obstructive pulmonary disease with (acute) lower respiratory infection; J15.9 Unspecified bacterial pneumonia; I11.0 Hypertensive heart disease with heart failure; E11.65 Type 2 diabetes mellitus with hyperglycemia; R74.01 Elevation of levels of liver transaminase levels; E78.5 Hyperlipidemia, unspecified; Z20.822 Contact with and (suspected) exposure to COVID-19; J98.4 Other disorders of lung; I48.91 Unspecified atrial fibrillation; Z88.8 Allergy status to other drugs, medicaments and biological substances; Z90.49 Acquired absence of other specified parts of digestive tract; Z95.5 Presence of coronary angioplasty implant and graft; Z79.01 Long term (current) use of anticoagulants; Z83.3 Family history of diabetes mellitus; Z82.49 Family history of ischemic heart disease and other diseases of the circulatory system; Z80.0 Family history of malignant neoplasm of digestive organs
CPT/HCPCS: 36415; 36600; 71045; 76705; 80053; 82805; 82962; 83036; 83735; 83880; 84132; 84484; 85025; 85610; 85730; 87426; 87804; 93005; 94640; 96365; 96375; 97163; 99291; G0378